=== PATIENT | female | born 1955 | race Caucasian/White ===

== ENCOUNTER 2016-09-13 18:53 | Observation (INO) | payer OTHER ==
[~2016-09-13] VITALS: Ht 161.3 cm; Wt 58.6 kg
[~2016-09-13 18:53] MED LIST: ASPI-973 PO; CALC-78 PO; CHOL100043 PO; GING1POW MC; LEVO112T23 PO; LORA0.5T PO; METO10TA3 PO; METO25TA99 PO; PYR50 PO; VITAMIN C GUMMY PO; ZOF8 PO
[2016-09-13 18:58] VITALS: BP 189/89; PULSE 69; RESP 16; O2SAT 100
--- NOTE | 2016-09-13 19:33 | ED.REPORT ---
HPI-Chest Pain 40 and Over Date of Service Sep 13, 2016 ED Provider: Dr. Toi Stoll D.O. A 61 year old female with a medical history including hypertension, diastolic heart failure, cardiomyopathy, DVT, and recurrent uterine carcinosarcoma presents to the ED from Urgent Care with substernal chest pain onset two days ago, waking her up. The pain is described as "heaviness," without exacerbation. The patient also reports fatigue. She denies fever, cough, shortness of breath, leg swelling, nausea, or other symptoms. The patient is being followed by her oncologist with the last appointment on 08/31/16. She has a CT of her pelvis scheduled in two days. Nursing Notes Stated Complaint: CHEST PAIN/SENT FROM URGENT CARE Chief Complaint: Chest Pain Nursing Notes Reviewed: Yes Allergies: Coded Allergies: magnesium sulfate (Verified Allergy, Severe, VOMITING, 09/13/16) potassium (Verified Allergy, Severe, VOMITING, 09/13/16) Scheduled ([Vitamin C Gummy Chew]) 1,000 MG PO DAILY Aspirin (Aspirin) 81 Mg Tablet 81 MG PO QAM Cholecalciferol (Vitamin D3) (Vitamin D) 1,000 Unit Tablet 2,000 UNIT PO QAM Levothyroxine (Levoxyl) 112 Mcg Tablet 112 MCG PO QAM Metoprolol Succinate ER (Metoprolol Succinate ER) 25 Mg Tab.er.24h 25 MG PO DAILY Pyridoxine (Vitamin B-6) 50 Mg Tablet 100 MG PO DAILY General Time Seen by MD: 19:32 Chief Complaint Chest pain Hx Obtained From: Patient Arrived By: Walk-in Sudden in Onset?: No Onset Occurred: 2 days ago Context of Onset: Sleeping Symptom Duration: Since onset Location: : Substernal Quality: Painful, Pressure Severity: Current: Moderate Severity: Maximum: Moderate Associated with: Reports: Fatigue, Denies: Cough, non-productive, Fever, Nausea, Shortness of Breath Pertinent Negative: Relieved by nothing Context Related History: Reports: Congestive heart failure, Hypertension Recent Healthcare: Recent doctor visit Past Medical History Past Medical History Notes: Past Medical History 1. Recurrent uterine carcinosarcoma. As of 08/31/16: The patient continues to have a biochemical treatment response with normalization of her CA-125 which has been reliable. Her last imaging study in April of 2016, showing stable peritoneal caking as well as splenic lesions. No new disease is seen. 2. Hypothyroidism. 3. Hypertension. 4. Diastolic heart failure with her last echocardiogram dated July 26, 2016 reporting an EF of 65%-70% which is unchanged. 5. Heart murmur 6. Cardiomyopathy 7. DVT legs 1974 8. Hiatal hernia Past Surgical History Appendectomy Hysterectomy Biopsies Smoking History Never Smoker Social History Other Social History: Good social support, Ambulatory Status Independent Review of Systems Constitutional: Reports: Fatigue, Denies: Fever Respiratory: Denies: Non-productive cough, Shortness of breath Cardiovascular: Reports: Chest pain GI: Denies: Diarrhea, Nausea, Vomiting Musculoskeletal: Denies: Extremity swelling Complete sys rev & neg: except as marked. Physical Exam Physical Exam Notes: Initial Vital Signs Vital Signs (First) Date Time Temp Pulse Resp B/P Pulse Ox O2 Delivery O2 Flow Rate FiO2 09/13/16 18:58 36.4 69 16 189/89 100 Room Air Initial VS: Reviewed Head / Eyes: Atraumatic, Normocephalic ENT: Conjunctiva normal, No scleral icterus Extremities: Vascular intact, Neuro intact, No swelling Skin: Warm, Dry, No cyanosis Neurologic: Alert, Oriented, Nonfocal Psychiatric: Mood/affect normal, Behavior normal, Normal thought content General/Constitutional: Awake, Alert, No acute distress Respiratory / Chest: Breath sounds NL, Breath sounds = bilat, No respiratory distress Cardiovascular: Heart rate NL, Regular rhythm Heart Sounds / Murmur: Positive: Murmur present... (Rumbling, low-pitched ejection murmur) Abdomen: Soft, Non-tender Neck: Supple, Full range of motion, No JVD Interpretation & Diagnostics Lab Results Interpretation Result Diagram: 09/13/16191409/13/161914 Test 09/13/16 19:15 09/13/16 21:37 09/13/16 23:55 White Blood Count 2.1th/mm3 (3.8-10.1) Red Blood Count 2.80mil/mm3 (3.90-5.20) Hemoglobin 10.2g/dL (12.0-15.6) Hematocrit 30.1% (35.0-46.0) Mean Corpuscular Volume 107.5fL (81-100) Mean Corpuscular Hemoglobin 36.4pg (27.0-35.0) Mean Corpuscular Hemoglobin Concent 33.9% (32.0-37.0) Red Cell Distribution Width 12.9% (12.3-15.4) Platelet Count 109bil/L (150-400) Neutrophils (%) (Auto) 45.3% (40-74) Lymphocytes (%) (Auto) 40.1% (14-46) Monocytes (%) (Auto) 12.7% (4-12) Eosinophils (%) (Auto) 0.5% (0-5) Basophils (%) (Auto) 1.4% (0-3) D-Dimer 2.29mg/L FEU (<0.50) Sodium Level 138mEq/L (134-144) Potassium Level 4.2mEq/L (3.5-5.2) Chloride Level 100mEq/L (97-108) Carbon Dioxide Level 23mmol/L (18-29) Blood Urea Nitrogen 13mg/dL (8-27) Creatinine 0.55mg/dL (0.57-1.00) Estimat Glomerular Filtration Rate 160mL/min (>59) Glucose Level 84mg/dL (60-99) Calcium Level 9.6mg/dL (8.5-10.1) Magnesium Level 1.7mg/dL (1.6-2.6) Total Bilirubin 0.3mg/dL (0.0-1.2) Aspartate Amino Transf (AST/SGOT) 34U/L (0-50) Alanine Aminotransferase (ALT/SGPT) 33U/L (0-32) Alkaline Phosphatase 79U/L (25-165) Total Protein 6.6g/dL (6.4-8.4) Albumin 4.0g/dL (3.4-5.0) Hold Sweeney Top Tube Received (Received) Hold Urine Received (Received) Troponin T 0.010ug/L (0.0-0.011) ECG Interpretation ECG Interpretation: Sinus rhythm rate 64 Time: 19:25 Interpreted by: ED physician X-Ray Chest Interpretation Chest Xray Interpretation: IMPRESSION: 1. No acute cardiopulmonary disease. Dictated by: Nahun Carty M.D. on 09/13/2016 at 20:13 View: Portable, 1 view Interpretation / Wet Read by: Interpret - ED physician CT Chest Interpretation IMPRESSION: 1. No evidence of pulmonary embolism. 2. Splenic lesions redemonstrated consistent with metastatic disease, decreased from the prior study. Dictated by: Nahun Carty M.D. on 09/13/2016 at 21:20 Study type: CT pulm angiogram Interpretation / Wet Read by: Interpret - Radiologist Re-Eval/Medical Decision Med Decision/Clinical Course The cause of her symptoms are uncertain. Perhaps this is related to a cardiomyopathy/myocarditis. I would expect the troponin to be elevated. This is most likely related to the doxorubicin. Chest wall pain could have been related to some Neupogen however she has not received that since March of last year. I consulted with Dr. Hays. We tried a GI cocktail and Protonix without relief. We decided we will going to admit her for observation and serial troponins and an echocardiogram. We will also repeat her white count to be sure that her pancytopenia does not worsen. Source of Hx: Old records Time of Eval: 20:50 Patient Status: Condition improved Re-Evaluation/Progress Note: Discussed with patient x-ray results and plan for CT. Time of Eval: 21:38 Patient Status: Condition improved Re-Evaluation/Progress Note: Discussed with patient consult with Dr. Jefferson and plan for GI cocktail. Time of Eval: 23:07 Re-Evaluation/Progress Note: Pain persists with no relief after proton-pump inhibitors. Discussed with patient x-ray, CT, and lab results, diagnosis, and plan for admit. Patient agrees with plan for care and all questions were addressed. Consultation #1: Referral / Consult Name: Mingo Light MD Call Returned at: 21:30 Back Office Medical Assistant: Agrees with eval, Agrees with plan Note: Oncology: Recommends trying GI cocktail. Admit to hospital and obtain serial enzymes if pain persists. Consultation #2: Referral / Consult Name: Jean Shanks MD Consulted With: Hospitalist Call Returned at: 23:45 Back Office Medical Assistant: Agrees with eval, Agrees with plan, Accepts admit Counseled Regarding: Diagnosis, Lab results, Need for admission Discharge & Departure Primary Impression: Chest pain Chest pain type: precordial chest pain Qualified Code: R07.2 - Precordial pain Additional Impression: Cardiomyopathy Disposition: ADMITTED TO HOSPITAL Discharge Condition All VS Reviewed: Yes Condition: Improved Referrals: Mellisa Dhillon (PCP) Scribe Attestation Portions of this note were transcribed by Lucia Carter. I, Dr. Stoll, personally performed the history, physical exam, and medical decision-making; I reviewed and confirmed the accuracy of the information in the transcribed note. Signed by: Emily Haywood, 09/14/2016, 00:17 copies to: Mellisa Dhillon Todd P DO Sep 13, 2016 19:33 LUCIA CARTER Sep 13, 2016 20:10
[2016-09-13 19:41] LABS: BASOPHILS % (AUTO) 1.4 % (0-3); EOSINOPHILS % (AUTO) 0.5 % (0-5); MONOCYTES % (AUTO) 12.7 % (4-12); Mean Corpuscular Hemoglobin 36.4 pg (27.0-35.0); Mean Corpuscular Volume 107.5 fL (81-100); NEUTROPHILS % (AUTO) 45.3 % (40-74); Platelet Count 109 bil/L (150-400)
[2016-09-13 20:09] LABS: TROPONIN T < 0.010 ug/L (0.0-0.011)
[2016-09-13 20:13] LABS: Magnesium 1.7 mg/dL (1.6-2.6)
--- NOTE | 2016-09-13 20:15 | DRSVH ---
PROCEDURE: X-RAY CHEST ONE VIEW, PORTABLE ([id number]) INDICATIONS: chest pain TECHNIQUE: One view of the chest was acquired. COMPARISON: [facility], CR, XR CHEST 1VW (PORTABLE), 10/05/2015, 15:09. FINDINGS: Surgical changes and devices: Left chest wall subclavian Port-A-Cath is stable in position with the t ip in the superior vena cava. Lungs and pleura: No pleural effusions or pneumothorax. Lungs are clear. Mediastinum: Mediastinal contours appear normal. Heart size is normal. Bones and chest wall: No suspicious bony lesions. Overlying soft tissues appear unremarkable. IMPRESSION: 1. No acute cardiopulmonary disease. Dictated by: Nahun Carty M.D. on 09/13/2016 at 20:13 Approved by: Nahun Carty M.D. on 09/13/2016 at 20:13
[2016-09-13 20:34] VITALS: BP 152/79; PULSE 80; RESP 24; O2SAT 100
--- NOTE | 2016-09-13 21:26 | DRSVH ---
PROCEDURE: CT ANGIO CHEST PULMONARY EMBOLISM ([id number]) INDICATIONS: metastatic cancer, chest pain,elevated ddimer TECHNIQUE: After the administration of intravenous contrast, 2 mm thick sections acquired from the pulmonary api emiliano to the posterior costophrenic angles. 3-dimensional maximum intensity projection (MIP) coronal a nd sagittal reformats were then acquired through the thorax. For radiation dose reduction, the follo wing was used: automated exposure control, adjustment of mA and/or kV according to patient size. COMPARISON: [facility], CT, CT CHEST ABD PELVIS W CON, 05/11/2016, 15:28. [facility], CT, CHEST ANGIO-PE, 03/01/2014, 16:28. FINDINGS: Image quality: Excellent. Pulmonary arteries: Pulmonary arteries are normal in size, and demonstrate no intraluminal filling d efects to suggest central pulmonary embolism. Lungs and pleura: There are a few residual small groundglass nodules within the right middle lobe wh ich are progressively decreased from the prior study. There is mild dependent atelectasis. No acute consolidation. Mild linear scarring is noted in the left lingula. No pleural effusions or pneumoth orax. Central and peripheral airways are patent. Mediastinum: Heart size is normal, without pericardial effusion. No mediastinal or hilar adenopathy . Thoracic aorta is normal in caliber and enhancement. Esophagus is normal in caliber, without hiat al hernia. Bones and chest wall: No suspicious bony lesions. Ribs and thoracic spine appear intact throughout. No axillary or supraclavicular adenopathy. Abdomen: Visualized upper abdomen redemonstrates multiple splenic lesions which appear decreased in size compared to the prior study. IMPRESSION: 1. No evidence of pulmonary embolism. 2. Splenic lesions redemonstrated consistent with metastatic disease, decreased from the prior study . Dictated by: Nahun Carty M.D. on 09/13/2016 at 21:20 Approved by: Nahun Carty M.D. on 09/13/2016 at 21:25
[2016-09-13] MEDS ORDERED: Pantoprazole 4 mg/mL 10 mL Inj IVPUSH ONE (21:35)
[2016-09-13] MEDS ORDERED: Alum-Mag Hydrox-Simeth 30 mL Suspension PO ONE (21:45)
[2016-09-13 22:47] VITALS: BP 141/84; PULSE 65; RESP 18; O2SAT 99
[2016-09-13] MEDS ORDERED: HYDROmorphone 0.5 mg/0.5 mL iSecure Syringe IVPUSH PRN (23:10)
[2016-09-14] VITALS (8 sets, daily range): BP systolic 105–139; BP diastolic 61–76; PULSE 62–73; RESP 16–18; O2SAT 96–98
[2016-09-14] MEDS ORDERED: HYDROcodone-APAP 5-325 mg Tablet PO PRN (00:50)
[2016-09-14] MEDS ORDERED: Alum-Mag Hydrox-Simeth 30 mL Suspension PO PRN (00:50)
[2016-09-14] MEDS ORDERED: Ondansetron 2 mg/mL 2 mL Inj IVPUSH PRN (00:50)
[2016-09-14] MEDS ORDERED: Polyethylene Glycol (PEG) 17 Gm Powder PO PRN (00:50)
[2016-09-14] MEDS ORDERED: Lidocaine 5% 35.5 Gm Ointment TOPICAL PRN (01:35)
--- NOTE | 2016-09-14 01:48 | PCM.HPMED ---
Subjective Date of Service Sep 13, 2016 Primary Provider: Admitting Physician: Primary Care Physician: Mellisa Dhillon Attending Physician: Chief Complaint: Chest pain History of Present Illness: Patient is a 61 y.o. F with past medical history of recurrent uterine carcinosarcoma on doxydubicin, Hypothyroidism, Hypothyroidism, Diastolic heart failure with her last echocardiogram dated July 26, 2016 reporting an EF of 65%-70% which is unchanged, Cardiomyopathy. She presented to Ed from urgent care with for sternal chest pain that began two days ago, sensation woke her up from sleep, described as constant heaviness, made worse by nothing, made better by nothing, without radiation associated with dizziness. Patient denies chest pain, syncope, PND, orthopnea, SOB, fever, chills, cough, nausea, vomiting, dysuria, diarrhea, constipation, swelling of hands and feet. Patient went to urgent care prior to ED and was evaluated and instructed to seek emergency medical care. Followed by oncology with repeat CT pelvis in two days recommend bashir pappas in AM. Review of Systems: A comprehensive review of systems was conducted with the patient and found to be negative except as above in the History of Present Illness. Allergies Coded Allergies: magnesium sulfate (Verified Allergy, Severe, VOMITING, 09/13/16) potassium (Verified Allergy, Severe, VOMITING, 09/13/16) Home Medications Aspirin (Aspirin) 81 Mg Tablet 81 MG PO DAILY Cholecalciferol (Vitamin D3) (Vitamin D) 1,000 Unit Tablet 2,000 UNIT PO DAILY Levothyroxine (Levoxyl) 112 Mcg Tablet 112 MCG PO DAILY Metoprolol Succinate ER (Metoprolol Succinate ER) 25 Mg Tab.er.24h 25 MG PO DAILY Pyridoxine (Vitamin B-6) 50 Mg Tablet 100 MG PO UD PMH 1. Recurrent uterine carcinosarcoma. As of 08/31/16: The patient continues to have a biochemical treatment response with normalization of her CA-125 which has been reliable. Her last imaging study in April of 2016, showing stable peritoneal caking as well as splenic lesions. No new disease is seen. 2. Hypothyroidism. 3. Hypertension. 4. Diastolic heart failure with her last echocardiogram dated July 26, 2016 reporting an EF of 65%-70% which is unchanged. 5. Heart murmur 6. Cardiomyopathy 7. DVT legs 1974 8. Hiatal hernia Surgical History Appendectomy Hysterectomy Biopsies Family History Father with [place] Mother with CAD Social History Hx Alcohol Use: No Hx Substance Use: No Hx Tobacco Use: No Smoking Status: Never Smoker Exam Vital Signs Vital Sign - Last Date Time Temp Pulse Resp B/P Pulse Ox O2 Delivery O2 Flow Rate FiO2 09/13/16 22:47 65 18 141/84 99 Room Air 09/13/16 18:58 36.4 Exam General: No acute distress, well-developed, well-nourished, appropriately interactive HEENT: Normocephalic, atraumatic. External ears without defect. Pupils equal, round, and reactive to light and accommodation. Anicteric sclerae, moist conjunctivae, and no lid lag. oral mucose moist/pink Neck: Supple with full range of motion. No jugular venous distension. No bruits. No lymphadenopathy or thyromegaly. Cardiovascular: Regular rate and rhythm, Grade I/IV systolic ejection murmur at RSB, no rubs, or gallops appreciated Pulmonary: Clear to auscultation bilaterally with no crackles, wheezes, or rhonchi. Normal respiratory effort with no use of accessory muscles. Abdomen: Bowel tones present. Soft, nontender, nondistended. No hepatosplenomegaly or masses appreciated. Extremities: No clubbing, cyanosis, edema, or lymphadenopathy appreciated. Skin: Normal temperature, turgor, and texture; no rash, ulcers, or subcutaneous nodules appreciated. Neurological: Cranial nerves grossly intact. Normal muscle strength, tone, and bulk. Reflexes, coordination, and sensory function within normal limits. No known gait impairment. Psychiatric: Normal mood and affect. Alert and oriented to person, place, and time. Lab and Diagnostics Result Diagram: 09/13/16191409/13/161914 X-Rays, CTs and MRIs CT angio chest IMPRESSION: 1. No evidence of pulmonary embolism. 2. Splenic lesions redemonstrated consistent with metastatic disease, decreased from the prior study. Dictated by: Nahun Carty M.D. on 09/13/2016 at 21:20 Approved by: Nahun Carty M.D. on 09/13/2016 at 21:25 Chest X-ray IMPRESSION: 1. No acute cardiopulmonary disease. Dictated by: Nahun Carty M.D. on 09/13/2016 at 20:13 Approved by: Nahun Carty M.D. on 09/13/2016 at 20:13 12-lead ECG ECG Interpretation: Sinus rhythm rate 64 Time: 19:25 Interpreted by: ED physician Assessment & Plan Patient is a 61 y.o. F with past medical history of recurrent uterine carcinosarcoma on doxorubicin, Hypothyroidism, Hypothyroidism, Diastolic heart failure with her last echocardiogram dated July 26, 2016 reporting an EF of 65%-70% which is unchanged, Cardiomyopathy. Patient is admitted for chest pain rule out, trending of WBC, Echo in AM. 1. Chest pain, acute, resolved on admission - CP resolved on admission, CTA negative for PE - Continue tele - Continue conservative IVF 80 mls/hr - Continue ASA 81 mg PO QD - Nitroglycerin SL 0.4 MG for chest pain - Morphine 1-2 mg Q 15 min PRN chest pain - EKG PRN for chest pain - ECHO in AM - Repeat CBC, CMP in AM 2. Leukopenia, acute on chronic - Patient on Doxorubicin chemo therapy, patient is afebrile on exam with no complaint of cough, sob, - Repeat CBC in AM - Oncology aware, following patient we appreciate their recommendations - Continue to monitor 3. Anemia, chronicity unknown - Repeat CBC - Iron studies ordered Chronic Conditions Recurrent uterine carcinosarcoma - Oncology following continue home medication Hypothyroidism, - continue home medication Hypertension, continue home medication Diastolic heart failure with her last echocardiogram dated July 26, 2016 reporting an EF of 65%-70% which is unchanged. - Repeat ECHO in AM 6. Cardiomyopathy - Repeat ECHO Pain Evaluation: Adequate Pain Control GI Prophylaxis: H2 aleah VTE Prophylaxis: Sub-Q Heparin (Unfractionated) Resuscitation Status: CPR: Attempt Resuscitation Attending Statement The patient was seen and examined together with Dr. Saucedo on 09/13 and I agree with the history, exam and plan as outlined in the note above. JUNIE SAUCEDO DO Sep 13, 2016 23:49 Jean Shanks MD Sep 14, 2016 02:25
[2016-09-14] MEDS: 0.9% Sodium Chloride 1,000 ML IV SCH ×2 (02:25→12:17)
--- NOTE | 2016-09-14 02:25 | NUR ---
admit: pt A&OX3, sleepy. Cooperative with care. IVF infusing per orders via Port a cath. pt c/o "chest pressure" but denies "pain". VSS. will continue to monitor.
[2016-09-14 06:15] LABS: BASOPHILS % (AUTO) 2.7 % (0-3); EOSINOPHILS % (AUTO) 0.7 % (0-5); MONOCYTES % (AUTO) 12.3 % (4-12); Mean Corpuscular Hemoglobin 36.5 pg (27.0-35.0); NEUTROPHILS % (AUTO) 32.2 % (40-74); Platelet Count 87 bil/L (150-400)
[2016-09-14 06:46] LABS: Unsaturated Iron Binding 205.1 ug/dL
[2016-09-14] MEDS: Heparin 5,000 Unit/mL Inj SUBQ SCH ×2 (08:30→16:30)
[2016-09-14] MEDS ORDERED: Famotidine Inj 20 MG in IV Premix 1 EACH IV SCH (08:30)
[2016-09-14] MEDS ORDERED: 0.9% Sodium Chloride 250 ML IV SCH (11:09)
[2016-09-14] MEDS ORDERED: Sodium Chloride LOK Flush 10 mL Syringe IVFLUSH PRN ×2 (11:10)
[2016-09-14] MEDS ORDERED: HepLOK Flush 100 unit/mL 5 mL Inj IVFLUSH PRN (11:10)
--- NOTE | 2016-09-14 13:13 | NUR ---
Social Work: Screening Data: Pt is a 61 y/o female admitted for chest pain cardiomyopathy. Pt's PCP is Dr Dhillon, pt's insurance is [employer]. EMR reviewed. No d/c planning needs anticipated at this time. [employer] will continue to follow if needs arise. Assessment: Pt who is independent at baseline. Plan: Pt will d/c home via POV when medically stable. No d/c planning needs anticipated at this time. [employer] will continue to follow if needs arise. CASSANDRA Cifuentes
[2016-09-14] MEDS ORDERED: Pantoprazole 20 mg ER24 Tablet PO SCH (14:30)
--- NOTE | 2016-09-14 14:50 | DRSVH ---
[facility] [address] [place] [address] Echocardiogram Report Name: ENRIQUETA MORROW SStudy Date: 09/14/2016 Height: 64 in Hospital Exam Location: [facility] Weight: 129 lb Gender: Female BSA: 1.6 m2 : 1955 Age: 61 yrs BP: 105/61 mmHg Reason For Study: Chest pain Ordering Physician: HOSPITALIST [facility] Performed By: Kehinde Mallory Referring Physician: JUNIE SAUCEDO Interpretation Summary LV size is borderline reduced. Left ventricular systolic function is normal without focal wall motion abnormalities. The ejection fraction is estimated to be 60-65%. LVEF has remained stable. The right ventricle is normal in size and function. Pulmonary artery pressures cannot be estimated because of the lack of a measurable TR jet velocity. There is mild to moderate aortic regurgitation. Compared to the prior echo study, there has been an increase in the severity of aortic regurgitation. The ascending aorta is mildly enlarged. Procedure: A two-dimensional transthoracic echocardiogram with color flow and Doppler was performed. The study quality was technically adequate. Comparison is made with the echocardiogram of 07/26/16. The patient was in normal sinus rhythm during the exam. Left Ventricle: LV size is borderline reduced. Left ventricular wall thickness is at the upper limits of normal. Left ventricular systolic function is normal without focal wall motion abnormalities. The ejection fraction is estimated to be 60-65%. Assessment of diastolic parameters indicates normal left ventricular diastolic function and normal filling pressures. Right Ventricle: The right ventricle is normal in size and function. Atria: The left atrial size is normal. Right atrial size is normal. The interatrial septum is intact with no evidence for an atrial septal defect. Mitral Valve: The mitral valve leaflets appear borderline thickened, but open well. There is trace mitral regurgitation. Aortic Valve: The aortic valve is grossly normal. The aortic valve is not well visualized. There is mild to moderate aortic regurgitation. Compared to the prior echo study, there has been an increase in the severity of aortic regurgitation. Tricuspid Valve: The tricuspid valve is normal. Pulmonary artery pressures cannot be estimated because of the lack of a measurable TR jet velocity. Pulmonic Valve: The pulmonic valve is not well visualized. Great Vessels: The aortic root is normal size. The ascending aorta is mildly enlarged. The pulmonary artery is not well visualized, but is probably normal size. The IVC is dilated (diameter is greater than 2.1 cm) yet it collapses greater than 50% with a sniff. This suggests a right atrial pressure of 8 mm Hg. Pericardium/ Pleura There is no pericardial effusion. There is no pleural effusion. MMode/2D Measurements & Calculations LVIDd: 3.9 cm RA long axis LVOT diam: 1.9 cm LVIDs: 2.8 cm LA A2 area: 15.8 cm AoV Opening FS: 29.3 % LA A4 area: 16.2 cm RA area EPSS: 0.39 cm LA length (vol) Ao root diam IVSd: 0.96 cm : 16.7 cm LVPWd: 0.95 cm LA vol: 46.2 ml RA vol asc Aorta Diam LA vol index : 48.4 ml RA Ao Arch Diam (Prox : 29.8 mm2 Trans): 3.0 cm IVC diam: 2.7 cm LV betts. diameter/BSA LV sys. diameter/BSA RVD1 (basal) RVD2 (mid): 1.9 cm (cm/m^2): 2.4 (cm/m^2): 1.7 TAPSE: 2.4 cm Doppler Measurements & Calculations Ao V2 max: 162.9 cm/secMV E max roddy MV E/A: 1.2 PA V2 max Ao max P.6 mmHg : 101.7 cm/sec Med Peak E' Roddy : 82.4 cm/sec Ao mean P.5 mmHg MV A max roddy PA mean PG LVOT Max Roddy : 86.9 cm/sec E/E' med: 17.6 : 1.4 mmHg : 133.7 cm/sec Lat Peak E' Roddy HEMANT(I,D): 2.3 cm E/E' lat: 12.2 sev ratio: 0.80 E/e' average AI P1/2t: 433.5 msec AI dec slope : 269.5 cm/s2c MV dec time: 0.18 sec Ao V2 mean LV V1 max PG PA V2 mean : 99.8 cm/sec : 56.3 cm/sec Ao V2 VTI: 31.4 cm LV V1 VTI: 25.2 cmPA pr(Accel) HEMANT(V,D): 2.3 cm2 : 38.5 mmHg HEMANT indexed to BSA (cm^2/m^2): 1.4 Reading Physician:PM
[2016-09-14] MEDS ORDERED: PANT20TA2 PO (16:51)
--- NOTE | 2016-09-14 16:56 | PCM.DIMED ---
Mel Prater DO 09/14/16 1656: Discharge Instructions Date of Service Sep 14, 2016 Dates of Hospitalization Sep 14, 2016 at 00:24 Discharge Diagnosis Discharge Diagnosis 1.Chest pain, acute, resolved on admission 2. Leukopenia, acute on chronic 3. Anemia, chronicity unknown Chronic Conditions Recurrent uterine carcinosarcoma Hypothyroidism, Hypertension, Diastolic heart failure with her last echocardiogram dated July 26, 2016 reporting an EF of 65%-70% which is unchanged. Cardiomyopathy Medication Instructions You were started on a PPI for your GERD. This has been sent to your pharmacy. Test Results ECHO Interpretation Summary LV size is borderline reduced. Left ventricular systolic function is normal without focal wall motion abnormalities. The ejection fraction is estimated to be 60-65%. LVEF has remained stable. The right ventricle is normal in size and function. Pulmonary artery pressures cannot be estimated because of the lack of a measurable TR jet velocity. There is mild to moderate aortic regurgitation. Compared to the prior echo study, there has been an increase in the severity of aortic regurgitation. The ascending aorta is mildly enlarged. Diet Heart Healthy Activity Other (Limited untll seen by Dr. Buchanan) Call your provider Shortness of breath, Chest pain Patient Instructions Please follow up with Dr. Buchanan as soon as possible. You also need to follow up with him regarding your low white count. He has likely told you about neutropenic precautions. Please avoid fresh coreas. Please avoid any sick contacts. Please be cognizant of children. Please use good handwashing technique. Have anyone that visits you wash their hands before coming in contact with you. Follow-up Provider: Reji Buchanan DO Follow-up with PCP in: 1 week Montrell Goodrich MD 09/15/16 0707: Discharge Instructions Attending's Statement The patient was seen and examined independently on 09/14/2016 and case discussed with Dr. Prater , I agree with the discharge instructions as outlined in the note above. Mel Prater DO Sep 14, 2016 16:56 Montrell Goodrich MD Sep 15, 2016 07:07
--- NOTE | 2016-09-14 17:30 | NUR ---
Discharge Reviewed discharge paperwork and medications with pt, disclaimer signed. Katlin-cath deaccessed by IV therapy. Tele removed, all belongings with pt. Pt denies pain, no s/sx of distress. Pt declines WC and escorted on foot curbside, driving home.
[2016-09-15 07:15] LABS: Vitamin B12 446 pg/mL (211-946)
--- NOTE | 2016-09-15 11:18 | PCM.DC.MED ---
Discharge Summary Date of Service Sep 15, 2016 Dates of Hospitalization Date of Hospital Admission Sep 14, 2016 at 00:24 Date of Discharge: Sep 14, 2016 Providers: Admitting Physician: Jean Shanks MD Primary Care Physician: Mellisa Dhillon Attending Physician: Jean Shanks MD Diagnosis at Time of Discharge Diagnosis at Time of Discharge 1.Chest pain, acute, resolved on admission 2. Leukopenia, acute on chronic 3. Anemia, chronicity unknown Chronic Conditions Recurrent uterine carcinosarcoma Hypothyroidism, Hypertension, Diastolic heart failure with her last echocardiogram dated July 26, 2016 reporting an EF of 65%-70% which is unchanged. Cardiomyopathy Procedures XRay, CTs & MRIs CT angio chest IMPRESSION: 1. No evidence of pulmonary embolism. 2. Splenic lesions redemonstrated consistent with metastatic disease, decreased from the prior study. Dictated by: Nahun Carty M.D. on 09/13/2016 at 21:20 Approved by: Nahun Carty M.D. on 09/13/2016 at 21:25 Chest X-ray IMPRESSION: 1. No acute cardiopulmonary disease. Dictated by: Nahun Carty M.D. on 09/13/2016 at 20:13 Approved by: Nahun Carty M.D. on 09/13/2016 at 20:13 ECG 12 Lead ECG Interpretation: Sinus rhythm rate 64 Time: 19:25 Interpreted by: ED physician Brief History From Dr. King's H and P: "Patient is a 61 y.o. F with past medical history of recurrent uterine carcinosarcoma on doxydubicin, Hypothyroidism, Hypothyroidism , Diastolic heart failure with her last echocardiogram dated July 26, 2016 reporting an EF of 65%-70% which is unchanged, Cardiomyopathy. She presented to Ed from urgent care with for sternal chest pain that began two days ago , sensation woke her up from sleep, described as constant heaviness, made worse by nothing, made better by nothing, without radiation associated with dizziness. Patient denies chest pain, syncope, PND, orthopnea, SOB, fever, chills, cough, nausea, vomiting, dysuria, diarrhea, constipation, swelling of hands and feet. Patient went to urgent care prior to ED and was evaluated and instructed to seek emergency medical care. Followed by oncology with repeat CT pelvis in two days recommend tredn trop, echo in AM." Hospital Course Patient is a 61 y.o. F with past medical history of recurrent uterine carcinosarcoma on doxorubicin, Hypothyroidism, Hypothyroidism, Diastolic heart failure with her last echocardiogram dated July 26, 2016 reporting an EF of 65%-70% which is unchanged, Cardiomyopathy. Patient is admitted for chest pain rule out, trending of WBC, Echo in AM. 1. Chest pain, acute, resolved on admission - CP resolved on admission, CTA negative for PE - Continued tele - Continued conservative IVF 80 mls/hr - Continued ASA 81 mg PO QD - EKG PRN for chest pain - ECHO not changed from prior. 2. Leukopenia, acute on chronic - Patient on Doxorubicin chemo therapy, patient is afebrile on exam with no complaint of cough, sob, - Repeated CBC in AM - Oncology aware, following patient we appreciate their recommendations - Continued to monitor 3. Anemia, chronicity unknown - Repeat CBC - Iron studies ordered Chronic Conditions Recurrent uterine carcinosarcoma - Oncology following continue home medication Hypothyroidism, - continued home medication Hypertension, continued home medication Diastolic heart failure with her last echocardiogram dated July 26, 2016 reporting an EF of 65%-70% which is unchanged. Exam Vital Signs (Last) Date Time Temp Pulse Resp B/P Pulse Ox O2 Delivery O2 Flow Rate FiO2 09/14/16 15:03 36.9 69 16 117/72 97 Room Air Exam General: No acute distress, well-developed, well-nourished, appropriately interactive HEENT: Normocephalic, atraumatic. External ears without defect. Pupils equal, round, and reactive to light and accommodation. Anicteric sclerae, moist conjunctivae, and no lid lag. oral mucose moist/pink Neck: Supple with full range of motion. No jugular venous distension. No bruits. No lymphadenopathy or thyromegaly. Cardiovascular: Regular rate and rhythm, Grade I/IV systolic ejection murmur at RSB, no rubs, or gallops appreciated Pulmonary: Clear to auscultation bilaterally with no crackles, wheezes, or rhonchi. Normal respiratory effort with no use of accessory muscles. Abdomen: Bowel tones present. Soft, nontender, nondistended. No hepatosplenomegaly or masses appreciated. Extremities: No clubbing, cyanosis, edema, or lymphadenopathy appreciated. Skin: Normal temperature, turgor, and texture; no rash, ulcers, or subcutaneous nodules appreciated. Neurological: Cranial nerves grossly intact. Normal muscle strength, tone, and bulk. Reflexes, coordination, and sensory function within normal limits. No known gait impairment. Psychiatric: Normal mood and affect. Alert and oriented to person, place, and time. Test 09/13/16 19:15 09/13/16 21:37 09/14/16 06:00 09/14/16 09:20 D-Dimer 2.29mg/L FEU (<0.50) Magnesium Level 1.7mg/dL (1.6-2.6) Hold Sweeney Top Tube Received (Received) Hold Urine Received (Received) White Blood Count 1.5th/mm3 (3.8-10.1) Red Blood Count 2.44mil/mm3 (3.90-5.20) Hemoglobin 8.9g/dL (12.0-15.6) Hematocrit 26.6% (35.0-46.0) Mean Corpuscular Volume 109.0fL (81-100) Mean Corpuscular Hemoglobin 36.5pg (27.0-35.0) Mean Corpuscular Hemoglobin Concent 33.5% (32.0-37.0) Red Cell Distribution Width 13.0% (12.3-15.4) Platelet Count 87bil/L (150-400) Neutrophils (%) (Auto) 32.2% (40-74) Lymphocytes (%) (Auto) 52.1% (14-46) Monocytes (%) (Auto) 12.3% (4-12) Eosinophils (%) (Auto) 0.7% (0-5) Basophils (%) (Auto) 2.7% (0-3) Reticulocyte Count,Calculated 1.9% (0.6-2.6) Sodium Level 140mEq/L (134-144) Potassium Level 4.1mEq/L (3.5-5.2) Chloride Level 103mEq/L (97-108) Carbon Dioxide Level 23mmol/L (18-29) Blood Urea Nitrogen 9mg/dL (8-27) Creatinine 0.57mg/dL (0.57-1.00) Estimat Glomerular Filtration Rate 154mL/min (>59) Glucose Level 86mg/dL (60-99) Calcium Level 9.0mg/dL (8.5-10.1) Iron Level 56ug/dL (35-150) Total Iron Binding Capacity 261ug/dL (250-450) Percent Iron Saturation 21%sat (15-50) Unsaturated Iron Binding 205.1ug/dL Ferritin 132ng/mL (13-150) Total Bilirubin 0.2mg/dL (0.0-1.2) Aspartate Amino Transf (AST/SGOT) 29U/L (0-50) Alanine Aminotransferase (ALT/SGPT) 26U/L (0-32) Alkaline Phosphatase 64U/L (25-165) Total Protein 5.5g/dL (6.4-8.4) Albumin 3.4g/dL (3.4-5.0) Vitamin B12 Level 446pg/mL (211-946) Folate ng/mL (.) Hold Purple Top Tube Received (Received) Hold [place] Top Tube Received (Received) Test 09/14/16 13:10 Troponin T < 0.010ug/L (0.0-0.011) Discharge Medications Discharge Medications ([Vitamin C Gummy Chew]) 1,000 MG PO DAILY (Reported) Aspirin (Aspirin) 81 Mg Tablet 81 MG PO QAM (Reported) Cholecalciferol (Vitamin D3) (Vitamin D) 1,000 Unit Tablet 2,000 UNIT PO QAM ( Reported) Levothyroxine (Levoxyl) 112 Mcg Tablet 112 MCG PO QAM (Reported) Metoprolol Succinate ER (Metoprolol Succinate ER) 25 Mg Tab.er.24h 25 MG PO DAILY (Reported) Pantoprazole (Pantoprazole DR) 20 Mg Tablet. 20 MG PO BID Prescribed by: THAO ELAINE DO Pyridoxine (Vitamin B-6) 50 Mg Tablet 100 MG PO DAILY (Reported) Additional med instructions You were started on a PPI for your GERD. This has been sent to your pharmacy. Followup Plan Discharge Diet: Heart Healthy Discharge Activity: Other (Limited untll seen by Dr. Buchanan) Patient Instructions Please follow up with Dr. Buchanan as soon as possible. You also need to follow up with him regarding your low white count. He has likely told you about neutropenic precautions. Please avoid fresh coreas. Please avoid any sick contacts. Please be cognizant of children. Please use good handwashing technique. Have anyone that visits you wash their hands before coming in contact with you. Follow-up Provider: Reji Buchanan DO Follow-up with PCP in: 1 week Attending Statement The patient was seen and examined independently on 09/14/2016 and case discussed with Dr. Elaine , I agree with the discharge summary as outlined in the note above. copies to: Reji Buchanan Viktoriya DO Sep 15, 2016 11:18 Montrell Goodrich MD Sep 16, 2016 06:59
[2016-10-17] MEDS ORDERED: OMEP20TA86 PO (16:42)
[2016-10-26] MEDS ORDERED: OLAN5TAB PO (15:44)
== END 2016-09-14 17:30 | disposition home or self-care (01) ==
LOC: SED 18:53 → MPC 09-14 00:24
PROVIDERS: ADMIT Hospitalist; ATTEND Hospitalist
DX: R07.9 Chest pain, unspecified (principal); D72.819 Decreased white blood cell count, unspecified; D64.81 Anemia due to antineoplastic chemotherapy; I42.9 Cardiomyopathy, unspecified; I50.30 Unspecified diastolic (congestive) heart failure; I10 Essential (primary) hypertension; C55 Malignant neoplasm of uterus, part unspecified; K44.9 Diaphragmatic hernia without obstruction or gangrene; E03.9 Hypothyroidism, unspecified; Z86.718 Personal history of other venous thrombosis and embolism; Z88.8 Allergy status to other drugs, medicaments and biological substances; Z79.82 Long term (current) use of aspirin; Z90.710 Acquired absence of both cervix and uterus
CPT/HCPCS: 36415; 71010; 71275; 80053; 82607; 82728; 83735; 84484; 85025; 85045; 85378; 93005; 96374; 96375; 99285; C8929; G0378; J1170; J3490; J7030; Q9967

== ENCOUNTER 2016-10-26 21:44 | Emergency (ER) | payer OTHER ==
[~2016-10-26] VITALS: Ht 162.6 cm; Wt 56.8 kg
[~2016-10-26 21:44] MED LIST changes: -CALC-78 PO; -GING1POW MC; -LORA0.5T PO; -METO10TA3 PO; +OLAN5TAB PO; +OMEP20TA86 PO; +PANT20TA2 PO; -ZOF8 PO
[2016-10-26 21:50] VITALS: PULSE 82; RESP 16; O2SAT 98
[2016-10-26 22:29] LABS: BASOPHILS % (AUTO) 0 % (0-3); EOSINOPHILS % (AUTO) 0.4 % (0-5); Mean Corpuscular Hemoglobin 36.8 pg (27.0-35.0); Mean Corpuscular Volume 111.3 fL (81-100); NEUTROPHILS % (AUTO) 88.1 % (40-74); Platelet Count 150 bil/L (150-400)
--- NOTE | 2016-10-26 22:38 | ED.REPORT ---
HPI-Abd Pain F 40 and Over Date of Service October 26, 2016 ED Provider: Elfego Martin MD 61 year old female who is status post hysterectomy with a history of recurrent uterine carcinosarcoma and hiatal hernia presents to the ER accompanied by her complaining of four days of lower abdominal pain, worsening markedly today. She also reports several days of constipation. Today she ate warm prunes for dinner at the instruction of her oncologist, Dr. Buchanan, without relief. Patient denies cough, nausea, vomiting, fever, and any other current illness. Nursing Notes Stated Complaint: ABDOMINAL PAIN/OVARIAN CANCER Chief Complaint: Female Abdominal Pain Nursing Notes Reviewed: Yes Allergies: Coded Allergies: magnesium sulfate (Verified Allergy, Severe, VOMITING, 09/13/16) potassium (Verified Allergy, Severe, VOMITING, 09/13/16) Scheduled ([Vitamin C Gummy Chew]) 1,000 MG PO DAILY Aspirin (Aspirin) 81 Mg Tablet 81 MG PO QAM Cholecalciferol (Vitamin D3) (Vitamin D) 1,000 Unit Tablet 2,000 UNIT PO QAM Lactulose (Lactulose) 20 Gm/30 Ml Solution 20 GM PO TID Levothyroxine (Levoxyl) 112 Mcg Tablet 112 MCG PO QAM Metoprolol Succinate ER (Metoprolol Succinate ER) 25 Mg Tab.er.24h 25 MG PO DAILY Olanzapine (Olanzapine) 5 Mg Tablet 10 MG PO D1-4 Omeprazole (Omeprazole) 20 Mg Tablet.dr 20 MG PO DAILY Pantoprazole DR (Pantoprazole DR) 20 Mg Tablet.dr 20 MG PO BID Pyridoxine (Vitamin B-6) 50 Mg Tablet 100 MG PO DAILY General Time Seen by MD: 22:38 Chief Complaint Abdominal pain Hx Obtained From: Patient Arrived By: Walk-in Sudden in Onset?: No Onset Occurred: 4 days ago Symptom Duration: Since onset Location: : Abdomen lower Quality: Painful Severity: Current: Moderate Severity: Maximum: Moderate Pertinent Negative: Pt denies other symptoms Similar Sx Previous: Yes Past Medical History Past Medical History 1. Recurrent uterine carcinosarcoma. As of 08/31/16: The patient continues to have a biochemical treatment response with normalization of her CA-125 which has been reliable. Her last imaging study in April of 2016, showing stable peritoneal caking as well as splenic lesions. No new disease is seen. 2. Hypothyroidism. 3. Hypertension. 4. Diastolic heart failure with her last echocardiogram dated July 26, 2016 reporting an EF of 65%-70% which is unchanged. 5. Heart murmur 6. Cardiomyopathy 7. DVT legs 1974 8. Hiatal hernia Past Surgical History Appendectomy Hysterectomy Biopsies Smoking History Never Smoker Social History Other Social History: Good social support, Ambulatory Status Independent Review of Systems Constitutional: Denies: Fever Respiratory: Denies: Non-productive cough GI: Reports: Abdominal pain, Constipation, Denies: Diarrhea, Hematemesis, Hematochezia, Nausea, Vomiting Complete sys rev & neg: except as marked. Physical Exam Vital Signs Vital Signs (First) Date Time Temp Pulse Resp B/P Pulse Ox O2 Delivery O2 Flow Rate FiO2 10/26/16 21:50 37.3 82 16 98 Room Air 10/27/16 00:50 128/77 Initial VS: Reviewed Head / Eyes: Atraumatic, Normocephalic Neck: Supple, Non-tender, Full range of motion Extremities: Vascular intact, Neuro intact, No swelling, No tenderness Skin: Warm, Dry, No cyanosis Neurologic: Alert, Oriented, Nonfocal Psychiatric: Mood/affect normal, Behavior normal, Normal thought content General/Constitutional: Awake, Alert, Well developed, Well nourished Tremulous. Respiratory / Chest: Breath sounds NL, Breath sounds = bilat, No respiratory distress, No rales, No rhonchi, No wheezing, No stridor Cardiovascular: Heart rate NL, Regular rhythm, Heart sounds NL, Peripheral circulation NL Abdomen: Soft, No guarding, No rebound, No distention Tenderness/Guarding/Rebound: Positive: Tender diffuse Bowel Sounds / Distention: Positive: Bowel sounds hypoactive Back: Inspection NL, Non-tender, No CVA tenderness Interpretation & Diagnostics Lab Results Interpretation Result Diagram: 10/26/16 2215 10/26/16 2215 Test 10/26/16 22:15 10/26/16 23:35 White Blood Count 5.6th/mm3 (3.8-10.1) Red Blood Count 3.10mil/mm3 (3.90-5.20) Hemoglobin 11.4g/dL (12.0-15.6) Hematocrit 34.5% (35.0-46.0) Mean Corpuscular Volume 111.3fL (81-100) Mean Corpuscular Hemoglobin 36.8pg (27.0-35.0) Mean Corpuscular Hemoglobin Concent 33.0% (32.0-37.0) Red Cell Distribution Width 13.2% (12.3-15.4) Platelet Count 150bil/L (150-400) Neutrophils (%) (Auto) 88.1% (40-74) Lymphocytes (%) (Auto) 9.3% (14-46) Monocytes (%) (Auto) 2.0% (4-12) Eosinophils (%) (Auto) 0.4% (0-5) Basophils (%) (Auto) 0% (0-3) Band Neutrophils % 0% (1-5) Sodium Level 138mEq/L (134-144) Potassium Level 4.0mEq/L (3.5-5.2) Chloride Level 101mEq/L (97-108) Carbon Dioxide Level 23mmol/L (18-29) Blood Urea Nitrogen 18mg/dL (8-27) Creatinine 0.57mg/dL (0.57-1.00) Estimat Glomerular Filtration Rate 154mL/min (>59) Glucose Level 136mg/dL (60-99) Calcium Level 9.2mg/dL (8.5-10.1) Magnesium Level 1.8mg/dL (1.6-2.6) Total Bilirubin 0.4mg/dL (0.0-1.2) Aspartate Amino Transf (AST/SGOT) 113U/L (0-50) Alanine Aminotransferase (ALT/SGPT) 114U/L (0-32) Alkaline Phosphatase 86U/L (25-165) Total Protein 6.8g/dL (6.4-8.4) Albumin 4.1g/dL (3.4-5.0) Lipase 114U/L (13-60) Hold Urine Received (Received) X-Ray Abdominal Interpretation Large amount of stool. Ascites. Cannot exclude volvulus. Study: 2 view Interpretation / Wet Read by: Wet read ED physician CT Abd / Pelvis Interpretation CONCLUSION: 5cm focal area of sigmoid wall thickening and narrowing, neoplasm must be excluded. Multiple splenic and hepatic masses do not reflect simple cysts, nonspecific, cannot rule out metastasis. Severe fecal loading of a capacious colon, probable chronic constipation and/or megacolon. No volvulus. Electronically signed by Linette Orosco MD Study type: Abdominal CT IV contrast Interpretation / Wet Read by: Interpret - Radiologist Re-Eval/Medical Decision Med Decision/Clinical Course 61-year-old with advanced ovarian cancer presents with abdominal pain and constipation. CT of her abdomen shows a previously observed thickening of the sigmoid colon just distal to the splenic flexure. There appears to be gas passing through that, but restriction of the abundant solids proximal to it. She has not had good experience in the past with likely. She was begun with lactulose on a 3 times a day regimen to soften and remove out the impacted stool. Return if worsening. Follow up with PCP and oncology. Thickening in the sigmoid colon is presumably tumor, whether metastatic or primary unknown. She might conceivably require surgery to relieve the obstruction. Source of Hx: Old records Re-Evaluation/Progress #1: Time of Eval: 23:34 Re-Evaluation/Progress Note: Discussed x-ray results and need for CT. Patient is amenable to the plan. Re-Evaluation/Progress #2: Time of Eval: 12:32 Re-Evaluation/Progress Note: Discussed lab and CT results and plan to discharge. Patient is amenable to the plan. Return precautions given. All other questions addressed. Counseled Regarding: Diagnosis, Lab results, Need for follow-up, When/why to return to ED Discharge & Departure Primary Impression: Abdominal pain Additional Impressions: Ovarian cancer Constipation MALIGNANT NEOPLASM OF SIGMOID COLON Disposition: Home Discharge Condition All VS Reviewed: Yes Condition: Improved Patient Instructions: Acute Abdominal Pain (ED), Constipation (ED), Lactulose ( By mouth) Additional Instructions: Begin lactulose 2 tablespoons three times daily until you are having frequent soft or liquid stools. Follow-up with your doctor in the office. Return for any fever, vomiting, or any other new symptoms of concern. You may call tonight questions at [phone]. I will be here all night. Referrals: Mellisa Dhillon (PCP) Reji Buchanan Attestation Portions of this note were transcribed by Arslan Gamboa. I, Dr. Martin, personally performed the history, physical exam and medical decision-making; I reviewed and confirmed the accuracy of the information in the transcribed note. Signed by: Emily Gomez, 10/27/2016 at 00:41 copies to: Mellisa Dhillon; Reji Buchanan Christopher W MD October 26, 2016 22:38 ARSLAN GAMBOA October 26, 2016 22:46
[2016-10-26 22:51] LABS: Magnesium 1.8 mg/dL (1.6-2.6)
[2016-10-27] MEDS ORDERED: Lactulose 20 Gm/30 mL 30 mL Syrup PO SCH (00:35)
[2016-10-27] MEDS ORDERED: LACT10SO60 PO (00:39)
[2016-10-27 00:50] VITALS: BP 128/77; PULSE 82; RESP 14; O2SAT 98
--- NOTE | 2016-10-27 08:20 | DRSVH ---
PROCEDURE: CT ABDOMEN AND PELVIS WITH CONTRAST ([id number]) INDICATIONS: possible volvulus TECHNIQUE: After the administration of intravenous contrast, 5 mm thick sections acquired from the diaphragm to the symphysis. 5 mm coronal and sagittal reformats were acquired. For radiation dose reduction, the following was used: automated exposure control, adjustment of mA and/or kV according to patient siz e. COMPARISON: Abdomen series 10/26/2016; CT abdomen and pelvis 09/15/2016 FINDINGS: Preliminary report by overnight caregiver radiology Image quality: Excellent. ABDOMEN: Lung bases: Lung bases are clear. Heart size is normal. Solid organs: Liver and spleen show interval enlargement of prior metastases and development of new lesions. For example, pre-existing mass in the medial left hepatic lobe shows further increase in siz e from 1.7 cm on last exam a 2.8 cm currently. Gallbladder is contracted. Biliary system is non dila chrissy. Pancreas enhances normally. No adrenal nodules. Kidneys demonstrate normal size and enhanceme nt, without hydronephrosis. Peritoneum and bowel: Small bowel loops demonstrate normal wall thickness and caliber. There is consi derable air and moderate stool throughout nondistended colon proximal to an area of pre-existing sigm oid wall thickening which does enhance and is suspect for malignant infiltration and partial obstruct ion. No evidence of volvulus. No free fluid or air. Peritoneal nodularity such as series 2/images 56 and 59 again noted compatible with tumor implants. Nodes and vessels: No retroperitoneal or mesenteric adenopathy by size criteria. Aorta and inferior vena cava are normal in size. Miscellaneous: No ventral hernias. PELVIS: Genitourinary: Bladder wall thickness is normal. Uterus is surgically absent secondary to history of uterine cancer. The 2 cm ill-defined enhancing mass over the superior left vaginal cuff appears slig htly larger. Miscellaneous: No inguinal hernias or adenopathy. Bones: Focal sclerosis in the left ischium is unchanged. 2 rounded foci of sclerosis in the left sacr um also unchanged. Multilevel disc degeneration. No vertebral body compression fractures. IMPRESSION: 1. Colonic distention proximal to a persistent area of enhancing wall thickening in the sigmoid colon suspect for neoplasm but inflammatory disease is not excluded. 2. Progressive metastatic disease from known uterine cancer with increased size and number of hepatic lesions. Splenic metastases as before. 3. Peritoneal implants and enhancing mass over the left vaginal cuff also suspect for metastatic depo sits are reidentified and slightly more prominent. 4. Nonspecific areas of sclerosis in the left sacrum and ischium Major findings are concordant with the preliminary report Dictated by: Pillo Santoro M.D. on 10/27/2016 at 7:54 Approved by: Pillo Santoro M.D. on 10/27/2016 at 8:18
--- NOTE | 2016-10-27 09:27 | DRSVH ---
PROCEDURE: X-RAY ACUTE ABDOMINAL SERIES ([id number]) INDICATIONS: ovarian cancer, constipation, pain TECHNIQUE: One view chest and two views of the abdomen were acquired. COMPARISON: [facility], CT, CT ABD PELVIS W CON, 10/26/2016, 23:54. [facility], CR, XR CHEST 1VW (PORTABLE), 09/13/2016, 19:29. FINDINGS: Surgical changes and devices: Stable positioning of left subclavian chest port. Chest: Lungs are clear, aside from streaky opacities involving the medial lung bases. Heart size is normal. No pleural effusions. No pneumoperitoneum. Abdomen: Moderate to severe fecal loading present and there is moderate gaseous distention of the col on to the sigmoid level. Bones: No suspicious bony lesions. IMPRESSION: Moderate to severe fecal loading with moderate distention of the colon to the level of the sigmoid. Underlying stricture and/or neoplasm cannot be excluded. Streaky bibasilar opacities present which may be related to atelectasis. Correlate clinically. Dictated by: Quincy ROJAS Interpreted: Anthony Santoro MD on 10/27/2016 at 9:24 Transcribed by: DELFINA on 10/27/2016 at 9:27 Approved by: Pillo Santoro M.D. on 10/27/2016 at 10:50
--- NOTE | 2016-10-27 16:05 | NUR ---
CONSTIPATION PATIENT CALLED CLINIC STATING SHE HAD BEEN TO ED YESTERDAY W/ABDOMINAL PAIN AND C/O CONSTIPATION. SCAN WAS DONE. PATIENT HAS NOT EATEN TODAY. PATIENT IS VOMITING BOTH LACTULOSE AND MIRALAX UP. DR. MEDELLIN OUT OF CLINIC TODAY SO DR. ADAMSON REVIEWED SCAN. PATIENT WAS TOLD TO RETURN TO ED FOR RE-EVALUATION. PATIENT WAS CONTACTED W/THIS UPDATE.
[2016-10-27] MEDS ORDERED: ASCO250T7 PO (20:20)
[2016-10-27] MEDS ORDERED: ACET325T51 PO (20:20)
== END 2016-10-27 00:52 | disposition home or self-care (01) ==
LOC: SED 21:44
DX: R10.30 Lower abdominal pain, unspecified (principal); K59.00 Constipation, unspecified; C56.9 Malignant neoplasm of unspecified ovary; C18.7 Malignant neoplasm of sigmoid colon; Z88.8 Allergy status to other drugs, medicaments and biological substances; I11.0 Hypertensive heart disease with heart failure; I50.30 Unspecified diastolic (congestive) heart failure; E03.9 Hypothyroidism, unspecified
CPT/HCPCS: 36415; 74022; 74177; 80053; 83690; 83735; 85025; 96374; 99285; J1885; Q9967

== ENCOUNTER 2016-10-27 16:34 | Inpatient (IN) | payer OTHER ==
[~2016-10-27] VITALS: Ht 160 cm; Wt 65.4 kg
[~2016-10-27 16:34] MED LIST changes: +LACT10SO60 PO
[2016-10-27 16:47] VITALS: BP 121/82; PULSE 85; RESP 16; O2SAT 99
[2016-10-27] MEDS ORDERED: 0.9% Sodium Chloride 1,000 ML IV ONE (18:07)
[2016-10-27] MEDS ORDERED: Ondansetron 2 mg/mL 2 mL Inj IVPUSH ONE (18:10)
--- NOTE | 2016-10-27 18:10 | ED.REPORT ---
HPI-Abd Pain F 40 and Over Date of Service October 27, 2016 ED Provider: Blayne Almazan MD The patient is a 61 year old female who is status post hysterectomy with a history of recurrent uterine carcinosarcoma and hiatal hernia who presents to the ED due to abdominal pain for the past 2-3 days. She is constipated and her last bowel movement was 6 days ago. She was seen here last night and prescribed lactulose, but immediately vomited it up. She took 2 sips of MiraLAX and vomited again. She saw Dr. Buchanan on Monday at which time her stomach was a little bloated. She takes a stool softener regularly. She is passing gas, has been able to keep down water, but has not been able to eat food. She denies fever and change in weight, Nursing Notes Stated Complaint: ABDOMINAL PAIN, CONSTIPATION Chief Complaint: Female Abdominal Pain Nursing Notes Reviewed: Yes ([employer] not reconciled) Allergies: Coded Allergies: magnesium sulfate (Verified Allergy, Severe, VOMITING, 09/13/16) potassium (Verified Allergy, Severe, VOMITING, 09/13/16) Scheduled Ascorbic Acid (Vitamin C) 250 Mg Tab.chew 1,000 MG PO QAM Aspirin (Aspirin) 81 Mg Tablet 81 MG PO QAM Cholecalciferol (Vitamin D3) (Vitamin D) 1,000 Unit Tablet 2,000 UNIT PO QAM Levothyroxine (Levoxyl) 112 Mcg Tablet 112 MCG PO QAM Metoprolol Succinate ER (Metoprolol Succinate ER) 25 Mg Tab.er.24h 25 MG PO QAM Pantoprazole DR (Pantoprazole DR) 20 Mg Tablet.dr 20 MG PO BID Pyridoxine (Vitamin B-6) 50 Mg Tablet 100 MG PO QAM Scheduled PRN Acetaminophen (Acetaminophen) 325 Mg Tablet 650 MG PO Q4H PRN PRN For Pain General Time Seen by MD: 18:05 Chief Complaint Constipation Hx Obtained From: Patient Arrived By: Walk-in Sudden in Onset?: Yes Onset Occurred: 4 days ago Symptom Duration: Since onset Location: : Diffuse Quality: Painful Severity: Current: Moderate Recent Healthcare: Recent doctor visit Similar Sx Previous: Yes Past Medical History Past Medical History Notes: oncologist: Serafin Buchanan Seen yesterday by oncologist and in ED, had CT scan last night Past Medical History 1. 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 Hypothyroidism. 3. Hypertension. 4. Diastolic heart failure with her last echocardiogram dated July 26, 2016 reporting an EF of 65%-70% which is unchanged. 5. Heart murmur 6. Cardiomyopathy 7. DVT legs 1974 8. Hiatal hernia Past Surgical History Appendectomy Hysterectomy Biopsies Smoking History Never Smoker Social History Other Social History: Good social support, Ambulatory Status Independent Review of Systems Constitutional: Denies: Fever GI: Reports: Abdominal pain, Constipation, Vomiting, Denies: Bloody/tarry stool Complete sys rev & neg: except as marked. Endocrine: Denies: Weight gain, Weight loss Physical Exam Vital Signs Vital Signs (First) Date Time Temp Pulse Resp B/P Pulse Ox O2 Delivery O2 Flow Rate FiO2 10/27/16 16:47 36.8 85 16 121/82 99 10/27/16 19:59 Room Air Initial VS: Reviewed Head / Eyes: Atraumatic, Normocephalic, PERRL ENT: Mucous membranes moist Neck: Supple, Non-tender Extremities: Vascular intact, Neuro intact, No swelling, No tenderness Skin: Warm, Dry General/Constitutional: Awake, Alert, No acute distress, Well appearing, Cooperative, Not toxic appearing Respiratory / Chest: Atraumatic, Breath sounds NL, Breath sounds = bilat, No respiratory distress Cardiovascular: Heart rate NL, Regular rhythm, Heart sounds NL, No gallop Bowel Sounds / Distention: Positive: Distention mild some abdominal distension but not particualrly tender Back: Atraumatic, Inspection NL, Full range of motion Interpretation & Diagnostics Interpretation & Diagnostics: Please also see labs and CT abdomen from last night in the ED Lab Results Interpretation Result Diagram: 10/27/16181710/27/161817 Test 10/27/16 18:18 10/27/16 18:21 White Blood Count 4.5th/mm3 (3.8-10.1) Red Blood Count 3.08mil/mm3 (3.90-5.20) Hemoglobin 11.3g/dL (12.0-15.6) Hematocrit 34.4% (35.0-46.0) Mean Corpuscular Volume 111.7fL (81-100) Mean Corpuscular Hemoglobin 36.7pg (27.0-35.0) Mean Corpuscular Hemoglobin Concent 32.8% (32.0-37.0) Red Cell Distribution Width 13.2% (12.3-15.4) Platelet Count 146bil/L (150-400) Neutrophils (%) (Auto) 91.2% (40-74) Lymphocytes (%) (Auto) 7.3% (14-46) Monocytes (%) (Auto) 1.1% (4-12) Eosinophils (%) (Auto) 0% (0-5) Basophils (%) (Auto) 0% (0-3) Sodium Level 141mEq/L (134-144) Potassium Level 3.7mEq/L (3.5-5.2) Chloride Level 103mEq/L (97-108) Carbon Dioxide Level 24mmol/L (18-29) Blood Urea Nitrogen 16mg/dL (8-27) Creatinine 0.56mg/dL (0.57-1.00) Estimat Glomerular Filtration Rate 157mL/min (>59) Glucose Level 122mg/dL (60-99) Calcium Level 9.7mg/dL (8.5-10.1) Magnesium Level 2.0mg/dL (1.6-2.6) Total Bilirubin 0.6mg/dL (0.0-1.2) Aspartate Amino Transf (AST/SGOT) 104U/L (0-50) Alanine Aminotransferase (ALT/SGPT) 127U/L (0-32) Alkaline Phosphatase 92U/L (25-165) Total Protein 6.7g/dL (6.4-8.4) Albumin 3.9g/dL (3.4-5.0) Lipase 54U/L (13-60) Thyroid Stimulating Hormone (TSH) 2.950uIU/mL (0.450-4.500) Prothrombin Time 9.4sec (8.1-12.5) Prothromb Time International Ratio 0.88ratio Hold Sweeney Top Tube Received (Received) Lab Results Interpretation: CBC normal + CMP normal except LFT abnormalities, chronic Re-Eval/Medical Decision Med Decision/Clinical Course This is a 61-year-old female on chemotherapy for uterine sarcoma who presents to the emergency department having been seen last night following a CT scan abdomen which was obtained for increasingly obstructive symptoms with the complaint of bloating, lack of bowel movement, and abdominal discomfort. The patient that I do not have vomiting, and while there was ashen for malignancy in the sigmoid, and a concern for partial retraction the hope was that it would improve with aggressive bowel regimen. However the patient has attempted lactulose, and MiraLAX today-but is now developed vomiting, and says return to the emergency department. She has had no fever, she is still passing some gas. On exam she appears mildly uncomfortable but not visible distress. Lungs are clear, her abdomen is slightly distended, but not particular tender. There is no guarding rebound or evidence of alex peritonitis. Blood work was obtained and was normal, except the liver function tests which showed no metastases-is generally unchanged. I reviewed the CT scan from last night, and the concern in this setting now she has alex obstructive symptoms, visit this would not actually be amenable to medical therapy, but may require surgical management and intervention. I consulted Dr. Lord on-call for surgery came and saw the patient and agrees, and his recommendation is admission to the hospitalist service and surgery will follow. In the mornings can attempt a Gastrografin and enema for further clarification, but it is anticipated surgical relief of his obstruction may be required. The on-call oncologist is also being notified. Source of Hx: Old records Consultation #1: Referral / Consult Name: Logan Lord MD Consulted With: Surgeon Call Returned at: 18:35 Generating Station Mechanic: Will see patient, Agrees with eval, Agrees with plan Note: Case discussed. Dr. Lord will and see the pt in about an hour. Consultation #2: Referral / Consult Name: Nnamdi Jamison MD Call Returned at: 20:00 Generating Station Mechanic: Agrees with eval, Agrees with plan Note: Case discussed with oncology. Consultation #3: Referral / Consult Name: Chantell Saxena DO Call Returned at: 20:22 Generating Station Mechanic: Agrees with eval, Agrees with plan Note: Case discussd. Differential Diagnosis: Positive: Bowel obstruction, Malignancy, Negative: Ectopic preg ruptured, Ectopic , Esophageal rupture, Foreign body, Gun shot wound abdomen, Mesenteric ischemia, Ovarian torsion, Pancreatitis, Peptic ulcer disease, Peritonitis, Porphyria, Stab wound abdomen Counseled Regarding: Diagnosis, Lab results, Need for admission Discharge & Departure Primary Impression: Bowel obstruction Intestinal obstruction type: other intestinal obstruction Qualified Code: K56.69 - Other intestinal obstruction Additional Impressions: History of uterine cancer Metastatic disease Disposition: ADMITTED TO HOSPITAL Discharge Condition All VS Reviewed: Yes Condition: Stable Referrals: Mellisa Dhillon (PCP) Scribe Attestation Portion of this note were transcribed by Tressa Mason. I, Dr.Matthew Almazan, personally performed the history, physical exam, and medical decision-making: I reviewed and confirmed the accuracy for the information in the transcribed note. Signed by: trip Boyer, 10/27/161999 copies to: Mellisa Dhillon Matthew F MD October 27, 2016 18:09 Tressa Mason October 27, 2016 18:14
[2016-10-27] MEDS: HYDROmorphone 0.5 mg/0.5 mL iSecure Syringe IVPUSH PRN ×2 (18:22→19:58)
[2016-10-27 18:28] LABS: BASOPHILS % (AUTO) 0 % (0-3); EOSINOPHILS % (AUTO) 0 % (0-5); MONOCYTES % (AUTO) 1.1 % (4-12); Mean Corpuscular Hemoglobin 36.7 pg (27.0-35.0); Mean Corpuscular Volume 111.7 fL (81-100); NEUTROPHILS % (AUTO) 91.2 % (40-74); Platelet Count 146 bil/L (150-400)
[2016-10-27 19:59] VITALS: BP 110/82; PULSE 78; RESP 20; O2SAT 99
[2016-10-27] MEDS ORDERED: ACET325T51 PO (20:20)
[2016-10-27] MEDS ORDERED: ASCO250T7 PO (20:20)
[2016-10-27] MEDS ORDERED: Ondansetron 2 mg/mL 2 mL Inj IVPUSH PRN (21:00)
[2016-10-27 21:12] VITALS: RESP 20; O2SAT 99
[2016-10-27 21:27] VITALS: BP 149/91; PULSE 91; RESP 19; O2SAT 96
--- NOTE | 2016-10-27 21:56 | CONS ---
[address] [address] CONSULTATION REPORT PATIENT: ENRIQUETA MORROW : 1955 MR#: [id number] ADMIT: 10/27/2016 JOB ID: [id number] DATE OF SERVICE: 10/27/2016 CHIEF COMPLAINT/IDENTIFICATION: Dr. Almazan and Dr. Buchanan have asked me to see this 61-year-old woman who presents with nausea and vomiting and no bowel movement since last Monday. HISTORY OF PRESENT ILLNESS: The patient has a history of recurrent uterine carcinosarcoma. She has noted bloating for about one week associated with decreased stool output. She had an abdominal CT scan yesterday when she came to the emergency department with similar complaints. She was started on increased cathartics from above and comes in vomiting. Her history of carcinosarcoma goes back to 2011, by her report, when she underwent a hysterectomy and had incidental finding. It was felt that no further intervention was warranted at that time, but in 2014 she tells me that it came back presenting with some vaginal bleeding and that she was treated with radiation but no further surgery and chemotherapy. She tells me she was recently seen on the PET scan to have progressing tumor including some metastatic disease in the right upper quadrant. She was placed on new chemotherapy by her report from Dr. Buchanan. PAST MEDICAL HISTORY: Hypertension, status post appendectomy, hysterectomy. She gives me some odd history of a bowel obstruction around the time that her son was born though she does not believe that any intestines were removed. MEDICATIONS: 1. Metoprolol. 2. Omeprazole. 3. Levothyroxine. ALLERGIES: No real drug allergies just some intolerance of MAGNESIUM and POTASSIUM. SOCIAL HISTORY: She is . She still works at the [employer]. Her is retired and they have two adult sons. She does not smoke cigarettes, she does not drink alcohol. PHYSICAL EXAMINATION: A pleasant woman in no acute distress. Vital signs are recorded in the chart with a temperature of 36.8, pulse is 78 and blood pressure of 110/82. Direct examination reveals a distended abdomen with some tympany, normal bowel tones. Rectal examination is not performed. IMAGING: I have reviewed her CT scan including the report and looked at the images myself. The report notes colonic distention proximal to persistent area of enhancing wall thickening in the sigmoid colon suspicious for neoplasm as well as progressive metastatic disease including omental cakes and peritoneal implants. To my eye, it clearly looks like she has a mechanical obstruction at the level of the distal sigmoid rather than diffuse obstipation. IMPRESSION/PLAN: A 61-year-old otherwise healthy woman with metastatic uterine cancer that is progressing well on chemotherapy who now likely has mechanical large bowel obstruction that is near complete or even possibly complete. She has a normal white count, normal electrolytes without an anion gap. I do not think she needs urgent surgical intervention, but my recommendation would be to get a Gastrografin enema tomorrow morning to confirm the diagnosis of mechanical large bowel obstruction. If it turns out that this is simply obstipation, the Gastrografin enema would also be therapeutic, but I would be very surprised if this is not a mechanical obstruction. I have told her such and I have told her that the only intervention unless Dr. Buchanan has a plan to rapidly shrink the tumor in her pelvis, would be that she have a diverting colostomy in the near future. She is being admitted to the [facility] to the hospitalist service for her nausea and vomiting and for hydration. I have ordered a Gastrografin enema tomorrow, and I will follow up on that with one of the general surgery physician's assistants rounding on her tomorrow. We did discuss the possibility of a laparoscopic colostomy on Monday.
[2016-10-27] MEDS ORDERED: Alum-Mag Hydrox-Simeth 30 mL Suspension PO PRN (22:05)
[2016-10-27 22:15] LABS: INR 0.88 ratio
--- NOTE | 2016-10-27 22:21 | PCM.HPMED ---
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 Patient was recently evaluated at this ER and prescribed lactulose for her obstipation, but was unable to tolerate it. She reports her abdomen has been increasingly bloated and she has been vomiting up any PO intake. She reports passing some flatus but otherwise denies any fever, chills, dysuria, weight change, DOLL, dizziness, CP, or SOB. She was recently changed to 2nd line chemotherapy for her uterine cancer. In the ED, her vital signs were stable and her CBC and CMP were per her baseline. She had a CT abd/pelvis that was remarkable for colonic distension proximal to the sigmoid and hepatic/splenic/peritoneal enhancing masses suspicious of metastases. Gen. surgery was consulted by the ED for possible large bowel obstruction Review of Systems: Complete review of systems negative except as stated in the history of present illness Allergies Coded Allergies: magnesium sulfate (Verified Allergy, Severe, VOMITING, 09/13/16) potassium (Verified Allergy, Severe, VOMITING, 09/13/16) PMH Recurrent uterine carcinosarcoma on 2nd line chemotherapy Hypothyroidism. Hypertension. Aortic Regurg Heart murmur DVT legs 1974 Hiatal hernia Surgical History Appendectomy Hysterectomy Biopsies BTL Family History Extensive family history of CAD Social History Hx Alcohol Use: No Hx Substance Use: No Hx Tobacco Use: No Smoking Status: Never Smoker Living Arrangement: with Family Exam Vital Signs Vital Sign - Last Date Time Temp Pulse Resp B/P Pulse Ox O2 Delivery O2 Flow Rate FiO2 10/27/16 21:27 36.9 91 19 149/91 96 Room Air Exam Gen.: Well develop female who appears in no acute distress, alert and oriented 3 HEENT: PERRLA, EOMI, sclerae anicteric, oropharynx moist and pink Neck: Soft, nontender, no JVD noted CV: Regular rate and rhythm with soft systolic murmur, peripheral pulses intact and equal Respiratory: CTA B, no wheezing or rhonchi, normal respiratory effort Abdomen: Moderately firm, distended, mildly tender to palpation diffusely, dull to percussion, no rebound, no rashes noted, decrease bowel sounds MSK: Muscle strength grossly intact and equal, no swelling or tender joints, no clubbing or peripheral cyanosis or edema Neuro: Grossly intact, no focal weakness, fluent speech Skin: Warm, dry, intact Psych: Appropriate mood and affect, linear thought processes, cooperative Lab and Diagnostics Result Diagram: 10/27/16181710/27/161817 X-Rays, CTs and MRIs PROCEDURE: CT ABDOMEN AND PELVIS WITH CONTRAST ([id number]) IMPRESSION: 1. Colonic distention proximal to a persistent area of enhancing wall thickening in the sigmoid colon suspect for neoplasm but inflammatory disease is not excluded. 2. Progressive metastatic disease from known uterine cancer with increased size and number of hepatic lesions. Splenic metastases as before. 3. Peritoneal implants and enhancing mass over the left vaginal cuff also suspect for metastatic deposits are reidentified and slightly more prominent. 4. 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 Suspected Bowel Obstruction, POA -As demonstrated on CT abdomen and pelvis. Possibly due to metastatic disease. -General surgery has been consulted and recommends Gastrografin enema tomorrow -NPO -IV NS 100mls/hr while npo -Symptomatic management with IV Zofran and Dilaudid Recurrent metastatic uterine cancer, POA -Currently on second line chemotherapy, as managed by Dr. Buchanan, Oncologist -Likely the cause of patient's macrocytic anemia and elevated transaminases Elevated transaminase level, unknown chronicity, POA -likely secondary to chemotherapy Macrocytic anemia, unknown chronicity, POA -likely secondary to chemotherapy Essential hypertension, POA -Stable, continue patient's metoprolol when taking PO Hypothyroidism, POA -Stable, continue patient's levothyroxine when taking PO -TSH 2.95 on admission Tylenol when necessary for fever/pain - minimize use due to elevated transaminase levels Zofran when necessary for nausea Restoril when necessary for insomnia CODE STATUS: Full resuscitation, may benefit from palliative care consult Disposition: Patient is admitted under observation status, expected length of stay greater than 2 nights, due to risk of adverse events, medical complexity, and decompensation Pain Evaluation: Adequate Pain Control VTE Prophylaxis: Sub-Q Heparin (Unfractionated), SCDs Resuscitation Status: CPR: Attempt Resuscitation Attending Statement The patient was seen and examined together with house staff on 10/27/2016 and I have added additional information to the note above. Jesús Villalba DO October 27, 2016 22:21 Chantell Saxena DO October 28, 2016 02:51
[2016-10-27] MEDS: 0.9% Sodium Chloride 1,000 ML IV SCH (22:34)
[2016-10-27 22:39] LABS: APPEARANCE,URINE HAZY (CLEAR,HAZY); COLOR,URINE AMBER (YELLOW); OCCULT BLOOD,URINE MODERATE (NEGATIVE); PH,URINE 5.5 (5.0-8.0)
[2016-10-27 22:51] LABS: ICTOTEST,URINE NEGATIVE (Negative)
[2016-10-27] MEDS: Pantoprazole 20 mg ER24 Tablet PO SCH (23:14)
[2016-10-27] MEDS: MeTOProlol XL 25 mg ER24 Tablet PO SCH (23:14)
[2016-10-28] MEDS: Heparin 5,000 Unit/mL Inj SUBQ SCH ×4 (00:12→23:37)
[2016-10-28 05:31] VITALS: BP 108/59; PULSE 77; RESP 16; O2SAT 100
--- NOTE | 2016-10-28 05:58 | NUR ---
Admission Pt arrived to [facility] at 2124 alert and oriented x 3. Pt able to ambulate with a steady gait onto the scale and into the bed. Pt denies chest pain and shortness of breath. Denies n/v/d. Pt Oriented to call light, room, bed controls, television, phone, and bathroom. Pt requested pain medication for abd pain and sleeping medication. MD ordered Temazepam and Tylenol which was helpful states pt. Pt appeared to be asleep most of the shift without distress noted. SCDs in place along with non slip socks. Pt continues with NPO status. VSS. Plan is to have an XR Gastrografin Enema today. Care ongoing.
[2016-10-28] MEDS: 0.9% Sodium Chloride 1,000 ML IV SCH ×2 (06:06→17:00)
[2016-10-28 06:54] LABS: BASOPHILS % (AUTO) 0 % (0-3); EOSINOPHILS % (AUTO) 1.9 % (0-5); MONOCYTES % (AUTO) 2.8 % (4-12); NEUTROPHILS % (AUTO) 50.9 % (40-74); Platelet Count 106 bil/L (150-400)
[2016-10-28] MEDS: Pantoprazole 20 mg ER24 Tablet PO SCH ×2 (08:21→17:01)
[2016-10-28] MEDS: MeTOProlol XL 25 mg ER24 Tablet PO SCH (08:29)
[2016-10-28] MEDS: Ascorbic Acid 500 mg Tablet PO SCH (08:29)
[2016-10-28 08:37] VITALS: BP 118/69; PULSE 76; RESP 16; O2SAT 98
--- NOTE | 2016-10-28 12:15 | DRSVH ---
PROCEDURE: X-RAY ENEMA WITH GASTROGRAPHIN ([id number]) INDICATIONS: mechanical vs functional large bowel obstruction? COMPARISON: [facility], CT, CT ABD PELVIS W CON, 09/15/2016, 15:16. FINDINGS: KUB: Preprocedural thiokol operator film demonstrates moderate fecal loading. No suspicious abdominal calcific ations. Visualized solid organ contours appear normal in size. No suspicious bony lesions. Colon: Gastrografin was instilled to the level of the mid sigmoid colon where no additional contrast medium was able to be instilled distal from this point. Stricture and/or mass is suspected. The atte nding physician was personally present in the room during the examination. IMPRESSION: Limited Gastrografin enema demonstrating opacification of the rectum and the small portio n of the sigmoid at which point Gastrografin was unable to be further instilled. Stricture and/or ma ss is suspected. Endoscopy is recommended. Dictated by: Quincy ROJAS Interpreted: Rah Schneider MD on 10/28/2016 at 12:09 Transcribed by: SASHA on 10/28/2016 at 12:15 Approved by: Rah Schneider M.D. on 10/28/2016 at 13:37
[2016-10-28] MEDS: HYDROmorphone 0.5 mg/0.5 mL iSecure Syringe IVPUSH PRN (12:52)
--- NOTE | 2016-10-28 13:31 | NUR ---
NUTRITION ASSESSMENT: ASSESS: 61YO F admit with possible bowel obstruction, surgery consulted, GI recommending endoscopy. Possible colonic distention suspicious of mets. PMHX: Uterine cancer with mets to liver/spleen on chemo therapy, hypothyroidism,anemia DIET: NPO LABS: Alb 3.2, Ca 8.3 MEDS: Reviewed GI: No BM SKIN: Jordy Yao WEIGHT: 60.4kg BMI: 23.0 EST.NEEDS: CANCER Kcal: [id number] Pro: 60-90g NUTRITION DIAGNOSIS: (1) Inadequate oral intake related to possible bowel obstruction/abdominal pain/n/v as evidenced by Clear liquid diet status. INTERVENTION: (1) Monitor for diet advancement vs. potential for nutrition support. MONITOR/EVALUATE: GI status, diet, labs. F/U per high risk.
--- NOTE | 2016-10-28 14:53 | NUR ---
RADIOLOGY/ENEMA P- Patient has fecal impaction per CT. Experiencing abdominal pain 09/26. I-Patient down to radiology at 1000 for Gastrografin enema, returned 1230. Had small amount of stool (5 hard marbles)in radiology per patient, states "I am passing some gas. Patient given 0.5mg IVP Dilaudid for pain, reports total relief. Heating pad applied to abdomen. E- Call in to Dr Lord, awaiting plan. Patient still NPO, resting comfortably
--- NOTE | 2016-10-28 16:33 | NUR ---
Social Work Note: Screen Note Data& Assessment: EMR reviewed. Patient is a 61 year old female admitted on 10/27/16 for Bowel Obstruction. Pt has [facility] for insurance coverage and sees Mellisa Loya MD for primary care. Pt lives in [place] with family and is independent at baseline. SW will continue to follow for discharge planning needs. . Plan: Anticipated discharge home via POV when medically ready. SW to continue to follow for any discharge needs. Adelaida Levy LMSW, ACM
--- NOTE | 2016-10-28 16:43 | PCM.PNMED ---
Subjective Date of Service October 28, 2016 Subjective No bowel movement yet. Abdominal distention slightly improved per patient. Afebrile. No vomiting. Exam Vital Signs Vital Sign - Last Date Time Temp Pulse Resp B/P Pulse Ox O2 Delivery O2 Flow Rate FiO2 10/28/16 08:37 36.8 76 16 118/69 98 Room Air Intake and Output 10/27/16 10/27/16 10/28/16 Cumulative From/Thru 15:00 23:00 07:00 10/27/16 16:47 - 10/28/16 05:30 Intake Total 652 ml 652 ml Output Total 200 ml 200 ml Balance 452 ml 452 ml Intake IV Total 652 ml 652 ml Output Urine Total 200 ml 200 ml Exam Gen.: Well develop female who appears in no acute distress, alert and oriented 3 HEENT: PERRLA, EOMI, sclerae anicteric, oropharynx moist and pink Neck: Soft, nontender, no JVD noted CV: Regular rate and rhythm with soft systolic murmur, peripheral pulses intact and equal Respiratory: CTA B, no wheezing or rhonchi, normal respiratory effort Abdomen: Moderately firm, distended, mildly tender to palpation diffusely, dull to percussion, no rebound, no rashes noted, decrease bowel sounds MSK: Muscle strength grossly intact and equal, no swelling or tender joints, no clubbing or peripheral cyanosis or edema Neuro: Grossly intact, no focal weakness, fluent speech Skin: Warm, dry, intact Psych: Appropriate mood and affect, linear thought processes, cooperative IVs and Medications Medications Reviewed: Medications were reviewed in detail Lab and Diagnostics Result Diagram: 10/28/1661410/28/16614 X-Rays, CTs and MRIs PROCEDURE: CT ABDOMEN AND PELVIS WITH CONTRAST ([id number]) IMPRESSION: 1. Colonic distention proximal to a persistent area of enhancing wall thickening in the sigmoid colon suspect for neoplasm but inflammatory disease is not excluded. 2. Progressive metastatic disease from known uterine cancer with increased size and number of hepatic lesions. Splenic metastases as before. 3. Peritoneal implants and enhancing mass over the left vaginal cuff also suspect for metastatic deposits are reidentified and slightly more prominent. 4. Nonspecific areas of sclerosis in the left sacrum and ischium Major findings are concordant with the preliminary report Additional Diagnostics PROCEDURE: X-RAY ENEMA WITH GASTROGRAPHIN ([id number]) INDICATIONS: mechanical vs functional large bowel obstruction? COMPARISON: [facility], CT, CT ABD PELVIS W CON, 09/15/2016, 15:16. FINDINGS: KUB: Preprocedural water pollution specialist film demonstrates moderate fecal loading. No suspicious abdominal calcifications. Visualized solid organ contours appear normal in size. No suspicious bony lesions. Colon: Gastrografin was instilled to the level of the mid sigmoid colon where no additional contrast medium was able to be instilled distal from this point. Stricture and/or mass is suspected. The attending physician was personally present in the room during the examination. IMPRESSION: Limited Gastrografin enema demonstrating opacification of the rectum and the small portion of the sigmoid at which point Gastrografin was unable to be further instilled. Stricture and/or mass is suspected. Endoscopy is recommended. 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 # Large Bowel Obstruction due to metastatic cancer, POA -As demonstrated on CT abdomen and pelvis. due to metastatic disease. - Gastrografin enema as above -Start her on clear liquid diets per surgery -Patient may need surgery and diverting colostomy. Await surgical recommendation and discussion with patient -IV NS 100mls/hr while npo -Symptomatic management with IV Zofran and Dilaudid # Recurrent metastatic uterine cancer, POA -Currently on second line chemotherapy, as managed by Dr. Buchanan, Oncologist -Likely the cause of patient's macrocytic anemia and elevated transaminases # Elevated transaminase level, unknown chronicity, POA -likely secondary to chemotherapy # Macrocytic anemia, unknown chronicity, POA -likely secondary to chemotherapy # Essential hypertension, POA -Stable, continue patient's metoprolol when taking PO # Hypothyroidism, POA -Stable, continue patient's levothyroxine when taking PO -TSH 2.95 on admission Tylenol when necessary for fever/pain - minimize use due to elevated transaminase levels Zofran when necessary for nausea Restoril when necessary for insomnia CODE STATUS: Full resuscitation, may benefit from palliative care consult Disposition pending clinical course VTE Prophylaxis: Sub-Q Heparin (Unfractionated), SCDs VTE Mechanical Devices: Intermittant Pneumatic CD Resuscitation Status: CPR: Attempt Resuscitation Montrell Goodrich MD October 28, 2016 16:43
--- NOTE | 2016-10-28 19:00 | PROG NOTE ---
[address] [address] PROGRESS NOTE PATIENT: ENRIQUETA MORROW : 1955 MR#: [id number] ADMIT: 10/27/2016 JOB ID: [id number] DATE: 10/28/2016 SUBJECTIVE: The patient is seen in followup after initial consultation by Dr. Lord for her colon obstruction. Today, she had a Gastrografin enema which showed no ability to identify the lumen or have flow beyond the level of the sigmoid colon. No luminal irregularity was noted, although the study was somewhat limited by lack of passage of contrast proximal to her obstruction. She states that she did have some passage of gas and stool following the enema study, but it was not voluminous. She has no nausea. OBJECTIVE: Temperature 36.8, pulse 76, blood pressure 118/69, saturation 98% on room air. General: She is sitting up in bed, in no acute distress. Chest is clear. Heart: Regular rate and rhythm. No murmurs. Abdomen is distended, fairly firm. She has no guarding. There are no hernias. She has a midline laparotomy scar without abnormalities. LABORATORIES: White blood cell count 1.1, hematocrit 28.9, platelets 106, creatinine 0.51. Glucose 89, albumin 3.2. ASSESSMENT AND PLAN: A 61-year-old woman with sigmoid colon obstruction, presumed secondary to involvement with her metastatic uterine carcinosarcoma. I told her that I agree with Dr. Lord, that I think a colostomy is her only viable option. I do not think this will get better with conservative treatment. Since the Gastrografin study showed no passage of contrast beyond the level of blockage, I think that other interventions, such as a colon stent are probably not viable. Nonetheless, she is very hesitant to commit to moving forward with surgical intervention, and asks that despite the fact that I think it is not technically possible, she wants to have an opinion directly from a repair service clerk. I will call Gastroenterology and asked them to weigh in on that.
[2016-10-28] MEDS ORDERED: HYDROmorphone 0.5 mg/0.5 mL iSecure Syringe ONE (19:04)
[2016-10-28 21:50] VITALS: BP 130/72; PULSE 87; RESP 19; O2SAT 95
--- NOTE | 2016-10-28 22:11 | NUR ---
PAIN Pt had last dose of 0.5 mg dilaudid from previous shift--dilaudid discontinued as well as tylenol discontinued. Pt reporting mild pain, increasing to moderate at worst in abdomen with tenderness. Paged Dr. Saxena for pain medication orders, awaiting reply. Addendum: 10/28/16 at 2238 by UCRTIS LEACH RN One time dose of Tylenol ordered. Explained to pt risks of taking tylenol as it will damage the liver, pt understands and states she will take her temazepam to help her sleep and ask for the tylenol when she needs it. Hourly rounding and frequent pain checks.
--- NOTE | 2016-10-28 23:56 | CONS ---
[address] [address] CONSULTATION REPORT PATIENT: ENRIQUETA MORROW : 1955 MR#: [id number] ADMIT: 10/27/2016 JOB ID: [id number] DATE OF SERVICE: 10/28/2016 REQUESTING PROVIDER: Hardik aZmbrano MD. REASON FOR CONSULTATION: High-grade bowel obstruction. HISTORY OF PRESENT ILLNESS: This is a 61-year-old female with a recurrence of uterine cancer at the vaginal cuff even in the setting of prior post hysterectomy BSO. She presents to the hospital with findings consistent with high-grade colonic obstruction. Her CT was reviewed in PACS. She had a Gastrografin and no contrast made it north of the obstructed segment. The plan is for a palliative colostomy on Monday. I was asked to see the patient in regards to the possibility of intracolonic stenting so as to avoid the need for operative intervention. The patient is not having nausea, vomiting. She has a full abdomen. She is passing some flatus and interestingly had "five small poops" after the Gastrografin enema. Additionally, she had a moderate amount of flatus pass with the Gastrografin. ALLERGIES: 1. SODIUM SULFATE. 2. POTASSIUM SULFATE. 3. MAGNESIUM SULFATE. MEDICATIONS: Please see the [employer] list. (Currently during this dictation [employer] is down.) OBJECTIVE: GENERAL: The patient was in no distress. Alert, oriented, cooperative, conversational. ABDOMEN: Was full. Bowel sounds present. No significant tenderness during my exam. LABS: The patient is currently neutropenic. IMAGING: I personally reviewed the CAT scan and the Gastrografin images. ASSESSMENT AND PLAN: A 61-year-old female with recurrent uterine carcinosarcoma. This appears to be creating a high-grade obstruction in the region of the sigmoid colon. It is interesting that the Gastrografin did not get north of the obstructed segment, but she has since been able to pass flatus. I think for now a clear liquid diet would be just fine. I have encouraged her to let us know if she has any increasing symptoms, such as nausea and/or vomiting which may require the need for NG tube. I will discuss with Dr. Zambrano the possibility of going in just prior to his diverting colostomy and attempting to traverse the lesion with the endoscope. If we were able to do that, we could certainly explore the option of a stent and, even at that point, cancel the surgery if we are successful. On the other hand, if in the operating room, we are not able to advance the wire or get a stent across the lesion, then the patient would proceed with the planned surgery.
[2016-10-29] MEDS: 0.9% Sodium Chloride 1,000 ML IV SCH ×2 (03:00→14:29)
--- NOTE | 2016-10-29 04:22 | PROG NOTE ---
[address] [address] PROGRESS NOTE PATIENT: ENRIQUETA MORROW : 1955 MR#: [id number] ADMIT: 10/27/2016 JOB ID: [id number] DATE: 10/28/2016 DIAGNOSIS: Sigmoid tumor obstruction, in the setting of metastatic uterine carcinosarcoma. HISTORY OF PRESENT ILLNESS: The patient is a very pleasant 61-year-old woman with metastatic uterine carcinosarcoma involving the liver, spleen, bowel and peritoneal carcinomatosis. She recently started second line chemotherapy with dacarbazine and gemcitabine under Dr. Buchanan's care. She presented to the ED two nights ago with constipation and abdominal pain and was given lactulose, which she vomited. She presented again last night ad I was contacted by Dr. Blayne Almazan to see this patient in the hospital. She has been severely constipated and bloated for the last week. Over the last two days, she has started nausea and vomiting too, although today she has not been nauseated and has been able to tolerate clear liquid diet well. CT scan was obtained last night and shows progressive metastatic disease involving the liver, spleen and peritoneal carcinomatosis, and also shows partial colon obstruction at the level of the sigmoid with proximal colonic distention. A Gastrografin enema was attempted this morning, but the contrast did not pass the level of obstruction. She has been offered a diverting colostomy and is tentatively scheduled for that on Monday. She is hoping to receive intra-colonic stent if that is advisable and fixes the problem, but if not she is agreeable to undergo a diverting colostomy. Dr. Juarez will be attempting endoscopy tomorrow, and will see if an intracolonic stent could be placed across the stricture or not. PHYSICAL EXAMINATION: Today she appears comfortable. She is sitting up on bed and is aware of her poor prognosis and limited options. She is awake alert and oriented x3. Vital signs are normal. LABORATORIES: Leukocyte count has dropped to 1100 today with 51% neutrophils, hemoglobin 9.3, platelet count 106,000. Chemistry is normal except mild transaminase elevations. Renal function is normal. IMPRESSION/RECOMMENDATIONS: 1. High grade sigmoid obstruction due to metastatic bowel implant. There is no systemic therapy option that would induce tumor shrinkage and relief of obstruction. I completely agree with the options of a colonic stent and if that was not feasible, her only remaining option would be diverting colostomy to which she agrees. 2. Chemotherapy induced neutropenia. Last dose of dacarbazine and gemcitabine were given on October 24. Her leukocyte count today has dropped quite a bit from yesterday. I will place an order for daily Neupogen starting tomorrow, especially given her upcoming surgery. 3. Dr. Buchanan will follow up with this patient on Monday.
[2016-10-29 06:18] VITALS: BP 145/71; PULSE 80; RESP 18; O2SAT 96
--- NOTE | 2016-10-29 06:38 | NUR ---
LEE ANN Informed pt this morning of upcoming filgrastim dose to increase WBC. Pt reports having it before and says Claritin helps with the flu-like symptoms. Told pt I would pass it on and to tell the doctors in morning rounds to get it ordered.
[2016-10-29] MEDS: MeTOProlol XL 25 mg ER24 Tablet PO SCH (07:52)
[2016-10-29] MEDS: Heparin 5,000 Unit/mL Inj SUBQ SCH ×2 (07:52→16:30)
[2016-10-29] MEDS: Ascorbic Acid 500 mg Tablet PO SCH (07:52)
[2016-10-29] MEDS: Pantoprazole 20 mg ER24 Tablet PO SCH ×2 (07:52→18:31)
[2016-10-29 08:33] VITALS: BP 170/80; PULSE 82; RESP 16; O2SAT 98
--- NOTE | 2016-10-29 12:59 | PCM.PNMED ---
Subjective Date of Service October 29, 2016 Subjective Abdominal distention slightly improved. Tolerating clear liquid diet. Going for colostomy tomorrow Exam Vital Signs Vital Sign - Last Date Time Temp Pulse Resp B/P Pulse Ox O2 Delivery O2 Flow Rate FiO2 10/29/16 08:33 36.6 82 16 170/80 98 Room Air Intake and Output 10/28/16 10/28/16 10/29/16 Cumulative From/Thru 14:59 22:59 06:59 10/27/16 16:47 - 10/29/16 06:26 Intake Total 2349 ml 3001 ml Output Total 950 ml 1150 ml Balance 1399 ml 1851 ml Intake Oral 200 ml 200 ml IV Total 2149 ml 2801 ml Output Urine Total 450 ml 650 ml Urine/Stool Mix 500 ml 500 ml Exam Gen.: Well develop female who appears in no acute distress, alert and oriented 3 HEENT: PERRLA, EOMI, sclerae anicteric, oropharynx moist and pink Neck: Soft, nontender, no JVD noted CV: Regular rate and rhythm with soft systolic murmur, peripheral pulses intact and equal Respiratory: CTA B, no wheezing or rhonchi, normal respiratory effort Abdomen: Moderately firm, slightly distended, mildly tender to palpation diffusely, dull to percussion, no rebound, no rashes noted, decrease bowel sounds MSK: Muscle strength grossly intact and equal, no swelling or tender joints, no clubbing or peripheral cyanosis or edema Neuro: Grossly intact, no focal weakness, fluent speech Skin: Warm, dry, intact Psych: Appropriate mood and affect, linear thought processes, cooperative IVs and Medications Medications Reviewed: Medications were reviewed in detail Lab and Diagnostics Result Diagram: 10/28/1661410/28/16614 X-Rays, CTs and MRIs PROCEDURE: CT ABDOMEN AND PELVIS WITH CONTRAST ([id number]) IMPRESSION: 1. Colonic distention proximal to a persistent area of enhancing wall thickening in the sigmoid colon suspect for neoplasm but inflammatory disease is not excluded. 2. Progressive metastatic disease from known uterine cancer with increased size and number of hepatic lesions. Splenic metastases as before. 3. Peritoneal implants and enhancing mass over the left vaginal cuff also suspect for metastatic deposits are reidentified and slightly more prominent. 4. Nonspecific areas of sclerosis in the left sacrum and ischium Major findings are concordant with the preliminary report Additional Diagnostics PROCEDURE: X-RAY ENEMA WITH GASTROGRAPHIN ([id number]) INDICATIONS: mechanical vs functional large bowel obstruction? COMPARISON: [facility], CT, CT ABD PELVIS W CON, 09/15/2016, 15:16. FINDINGS: KUB: Preprocedural food service aide film demonstrates moderate fecal loading. No suspicious abdominal calcifications. Visualized solid organ contours appear normal in size. No suspicious bony lesions. Colon: Gastrografin was instilled to the level of the mid sigmoid colon where no additional contrast medium was able to be instilled distal from this point. Stricture and/or mass is suspected. The attending physician was personally present in the room during the examination. IMPRESSION: Limited Gastrografin enema demonstrating opacification of the rectum and the small portion of the sigmoid at which point Gastrografin was unable to be further instilled. Stricture and/or mass is suspected. Endoscopy is recommended. 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 # Large Bowel Obstruction due to metastatic cancer, POA -As demonstrated on CT abdomen and pelvis. due to metastatic disease. - Gastrografin enema as above - on clear liquid diets per surgery -Patient going for diverting colostomy tomorrow.Gi was consulted by surgeon to try colonoscopy and stenting but they agreed colostomy is the best option. Patient also in agreement with decision -Continue IV NS 100mls/hr -Symptomatic management with IV Zofran and Dilaudid # Recurrent metastatic uterine cancer, POA -Currently on second line chemotherapy, as managed by Dr. Buchanan, Oncologist -Likely the cause of patient's macrocytic anemia and elevated transaminases # Elevated transaminase level, unknown chronicity, POA -likely secondary to chemotherapy # Macrocytic anemia, unknown chronicity, POA -likely secondary to chemotherapy #Pancytopenia -Due to chemotherapy, Neupogen started by oncology # Essential hypertension, POA -Stable, continue patient's metoprolol when taking PO # Hypothyroidism, POA -Stable, continue patient's levothyroxine when taking PO -TSH 2.95 on admission Tylenol when necessary for fever/pain - minimize use due to elevated transaminase levels Zofran when necessary for nausea Restoril when necessary for insomnia CODE STATUS: Full resuscitation, may benefit from palliative care consult Disposition pending clinical course VTE Prophylaxis: Sub-Q Heparin (Unfractionated), SCDs VTE Mechanical Devices: Intermittant Pneumatic CD Resuscitation Status: CPR: Attempt Resuscitation Montrell Goodrich MD October 29, 2016 12:59
--- NOTE | 2016-10-29 13:03 | PROG NOTE ---
[address] [address] PROGRESS NOTE PATIENT: ENRIQUETA MORROW : 1955 MR#: [id number] ADMIT: 10/27/2016 JOB ID: [id number] DATE: 10/29/2016 The patient remains stable. I reviewed all the recommendations and recommended to her that we proceed tomorrow with a laparoscopic diverting colostomy rather than attempt to place a stent. This recommendation is based on the anticipated natural history of her disease as well as her personal goals of getting back to full activity with minimal number of procedures as soon as possible. I am concerned that stent placement, even if successful, may either exacerbate or confuse symptoms of progressive pelvic pain. Functionally, I think she will do best if we do a colostomy now. I will discuss this with Dr. Juarez and, at this point, the patient is open to proceeding with my recommendations for laparoscopic, possible open diverting colostomy tomorrow. I will place her on the OR schedule.
--- NOTE | 2016-10-29 13:17 | PROG NOTE ---
[address] [address] PROGRESS NOTE PATIENT: ENRIQUETA MORROW : 1955 MR#: [id number] ADMIT: 10/27/2016 JOB ID: [id number] DATE: 10/29/2016 SUBJECTIVE: The patient continues to be able to pass a little bit of flatus but still has a pressure sensation in her lower abdomen. She is tolerating clear liquids. She was given a dose of Neupogen this morning. I had a discussion with Dr. Lord about her case and in the context of a disease process that has been going on for five years and currently involved in second-line therapy. Prognosis is a little difficult to predict here, but we suspected that even in the context of this stage [address] findings that is certainly not imminent. In that context, Dr. Lord was favoring proceeding with the diverting colostomy rather than placing an endoscopic stent, especially in the knowledge that if there is progression of pelvic disease with a stent in place, it would be very difficult to differentiate this from some form of complication related to the stent itself. I spoke with Dr. Jamison by telephone this afternoon about her case and explained the rationale for the slight change of plan. Based on his evaluation of her imaging and current presentation, he is concerned that her prognosis is quite poor. He will be touching base with Dr. Buchanan who hopefully will be able to sit down with the patient on Monday to go over some of these sobering issues in a little more detail as the patient really does not have a good understanding at present for her current disease state. OBJECTIVE: The patient is in no distress. Alert, oriented, appropriate, cooperative, conversational. Her was at the bedside. Blood pressure is a little up. Abdomen is still mildly to moderately distended and firm. No guarding. LABORATORIES: None this morning but yesterday she had a low white count at 1.1 and Neupogen was given this morning. Her platelets have also fallen to 106. Hemoglobin is down to 9.3. Liver tests are a little improved. Albumin is 3.2. Creatinine 0.51. ASSESSMENT AND PLAN: This is a 61-year-old female with a high-grade obstructing process in the distal sigmoid region. This is related to a stage IV uterine carcinosarcoma. Prognosis based on imaging appears to be poor. After discussion this morning with Dr. Lord, the patient is definitely on board with proceeding to diversion colostomy as a definitive means at providing consistent bowel decompression. Will, therefore, hold off on any attempt at stent placement. That said, depending on how she is doing clinically tomorrow, surgery may need to be deferred if she has significant thrombocytopenia, neutropenia, etc. NOTE: This is a no charge physician visit. Please do not assess a physician charge for this particular note.
[2016-10-29 18:35] VITALS: BP 159/90; PULSE 70; RESP 18; O2SAT 98
--- NOTE | 2016-10-29 19:31 | NUR ---
Plan of Care/Surg cancelled Pt this AM stated that they had accepted and were completely on board with surgery and colostomy tomorrow. However, through the course of the day and many phone calls and visitors, pt has made a complete change. Pt states now they do not want surgery, that they want to search out other options. Pt was able to speak with dr clayton about this so the am surgery was cancelled.
[2016-10-29 21:28] VITALS: BP 161/83; PULSE 79; RESP 18; O2SAT 96
[2016-10-30] MEDS: Heparin 5,000 Unit/mL Inj SUBQ SCH ×3 (00:04→15:51)
[2016-10-30] MEDS: 0.9% Sodium Chloride 1,000 ML IV SCH ×3 (00:12→21:15)
--- NOTE | 2016-10-30 01:57 | PROG NOTE ---
[address] [address] PROGRESS NOTE PATIENT: ENRIQUETA MORROW : 1955 MR#: [id number] ADMIT: 10/27/2016 JOB ID: [id number] DATE: 10/29/2016 SUBJECTIVE: The patient has rethought her decision to proceed with a diverting loop colostomy tomorrow. She has a number of questions for Dr. Buchanan that she would like to discuss with him on Monday prior to proceeding with any "permanent" procedure. Additionally, I have noted that her absolute neutrophil count is down to 1100 today, and although she has received Neupogen, it appears that she may be approaching a arun of her white count and platelet count, and therefore, I think it would be prudent to put off the surgery even if she did not have second thoughts. Additionally, Dr. Juarez has talked to her a bit more about the possibility of a stent, and she is considering that. She is off the OR schedule for tomorrow.
--- NOTE | 2016-10-30 03:41 | NUR ---
PLAN OF CARE Spoke with pt about the changing plan of care. Pt remains optimistic, and looks to try other interventions rather than surgery. Pt stated "They're just so quick to cut you open and change your body. I don't understand why they can't just take out the tumor if that's what's blocking me up." Pt described the gastrografin was successful in producing some stool and gas, and said she was going to ask in the morning about doing this again. Pt wanted to hear from Dr. Buchanan as "Dr. Buchanan knows me better than any of these doctors--I want to hear his opinion too." RN encouraged pt to bring these issues up in rounds in the morning.
[2016-10-30] MEDS: Polyethylene Glycol (PEG) 17 Gm Powder PO PRN (06:04)
[2016-10-30 06:09] VITALS: BP 139/83; PULSE 84; RESP 17; O2SAT 93
[2016-10-30 06:37] LABS: BASOPHILS % (AUTO) 0 % (0-3); MONOCYTES % (AUTO) 1.5 % (4-12); Mean Corpuscular Hemoglobin 36.4 pg (27.0-35.0); Mean Corpuscular Volume 106.4 fL (81-100); NEUTROPHILS % (AUTO) 77.9 % (40-74); Platelet Count 92 bil/L (150-400)
[2016-10-30 08:54] VITALS: BP 155/79; PULSE 72; RESP 14; O2SAT 97
[2016-10-30] MEDS: Ascorbic Acid 500 mg Tablet PO SCH (09:00)
[2016-10-30] MEDS: Pantoprazole 20 mg ER24 Tablet PO SCH ×2 (09:00→16:32)
[2016-10-30] MEDS: MeTOProlol XL 25 mg ER24 Tablet PO SCH (09:00)
[2016-10-30] MEDS ORDERED: Sodium Biphos-Phos 133 mL Enema RECTAL ONE ×2 (10:45)
--- NOTE | 2016-10-30 13:10 | PROG NOTE ---
[address] [address] PROGRESS NOTE PATIENT: ENRIQUETA MORROW : 1955 MR#: [id number] ADMIT: 10/27/2016 JOB ID: [id number] DATE: 10/30/2016 The patient continues to tolerate clear liquids, feels less bloated, and is quite hopeful that she will be able to avoid a colostomy. She wants to have a discussion with Dr. Buchanan regarding prognosis and options prior to deciding on any procedure. Dr. Juarez continues to follow her and will give some consideration to colonic stenting if this is required. Dr. Ghosh will follow up for General Surgery starting tomorrow.
--- NOTE | 2016-10-30 13:22 | PROG NOTE ---
[address] [address] PROGRESS NOTE PATIENT: ENRIQUETA MORROW : 1955 MR#: [id number] ADMIT: 10/27/2016 JOB ID: [id number] DATE: 10/30/2016 SUBJECTIVE: The patient has decided that she does not wish to proceed with a diverting colostomy. She is still passing some flatus and feels slightly deflated in comparison to yesterday. She is tolerating liquid diet. OBJECTIVE: Vital signs are stable. Blood pressure 155/79, pulse 72, breathing 14, temperature 36.1, 97% on room air. No distress, up ambulatory within her room. Abdomen still appears slightly full. Bowel sounds are present. No significant tenderness during the exam. LABORATORY DATA: White count is up to 1.9 with 77.9% neutrophils. Platelets are sufficient at 92. Hemoglobin 10.2. ASSESSMENT AND PLAN: This is a 61-year-old female with high-grade obstruction involving the distal sigmoid. We anticipate a detailed prognostic discussion with Dr. Buchanan for tomorrow. If she wishes to avoid any intervention then it would perhaps be interesting to see how she responds to further enema therapy. I have given her two saline Fleet enemas this morning and hopefully this dislodges further stool and flatus and will see how she responds clinically. If there is a suboptimal response then perhaps we reconsider the viability of stenting, contingent on the results of her conversation with Dr. Buchanan.
[2016-10-30 14:15] VITALS: BP 148/76; PULSE 96; RESP 16; O2SAT 96
--- NOTE | 2016-10-30 16:32 | PCM.PNMED ---
Subjective Date of Service October 30, 2016 Subjective Patient was seen and examined at bedside today. Patient denies any chest pain, shortness of breath, nausea, vomiting, diarrhea. Overnight events: None Exam Vital Signs Vital Sign - Last Date Time Temp Pulse Resp B/P Pulse Ox O2 Delivery O2 Flow Rate FiO2 10/30/16 14:15 36.8 96 16 148/76 96 Room Air Intake and Output 10/29/16 10/29/16 10/30/16 Cumulative From/Thru 15:00 23:00 07:00 10/27/16 16:47 - 10/30/16 06:09 Intake Total 2103 ml 1262 ml 6366 ml Output Total 1600 ml 450 ml 3200 ml Balance 503 ml 812 ml 3166 ml Intake Oral 800 ml 200 ml 1200 ml IV Total 1303 ml 1062 ml 5166 ml Output Urine Total 1600 ml 450 ml 2700 ml Urine/Stool Mix 500 ml Exam Physical Exam: GEN: Patient was awake, alert, responding appropriately to questions HEENT: Pupils equal round and reactive to light, extraocular eye muscles intact , Neck soft supple, trachea midline, nomocephalic/atraumatic CV: +S1/S2, regular rate and rhythm, positive 2/6 systolic murmur auscultated Respiratory: CTAB, no wheezes, rales, rhonchi GI: +bowel sounds x4, soft, compressible, nontender to palpation EXT: no clubbing, cyanosis, edema Neuro: Cranial nerves II-XII grossly intact Psych: mood and affect were appropriate IVs and Medications Medications Reviewed: Medications were reviewed in detail Lab and Diagnostics Result Diagram: 10/30/16 0603 10/28/16 0615 X-Rays, CTs and MRIs PROCEDURE: CT ABDOMEN AND PELVIS WITH CONTRAST ([id number]) IMPRESSION: 1. Colonic distention proximal to a persistent area of enhancing wall thickening in the sigmoid colon suspect for neoplasm but inflammatory disease is not excluded. 2. Progressive metastatic disease from known uterine cancer with increased size and number of hepatic lesions. Splenic metastases as before. 3. Peritoneal implants and enhancing mass over the left vaginal cuff also suspect for metastatic deposits are reidentified and slightly more prominent. 4. Nonspecific areas of sclerosis in the left sacrum and ischium Major findings are concordant with the preliminary report Additional Diagnostics PROCEDURE: X-RAY ENEMA WITH GASTROGRAPHIN ([id number]) INDICATIONS: mechanical vs functional large bowel obstruction? COMPARISON: [facility], CT, CT ABD PELVIS W CON, 09/15/2016, 15:16. FINDINGS: KUB: Preprocedural geoduck diver film demonstrates moderate fecal loading. No suspicious abdominal calcifications. Visualized solid organ contours appear normal in size. No suspicious bony lesions. Colon: Gastrografin was instilled to the level of the mid sigmoid colon where no additional contrast medium was able to be instilled distal from this point. Stricture and/or mass is suspected. The attending physician was personally present in the room during the examination. IMPRESSION: Limited Gastrografin enema demonstrating opacification of the rectum and the small portion of the sigmoid at which point Gastrografin was unable to be further instilled. Stricture and/or mass is suspected. Endoscopy is recommended. 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 Large Bowel Obstruction due to metastatic cancer, POA -As demonstrated on CT abdomen and pelvis. due to metastatic disease. - Gastrografin enema as above - on clear liquid diets per surgery -Patient has decided not to do the colostomy at this time. General surgery has signed off and will be re-consulted if the patient decides later on that she would does want the colostomy. -2 Fleet enemas have been given as per recommendation by GI -Continue IV NS 100mls/hr -Symptomatic management with IV Zofran and Dilaudid Recurrent metastatic uterine cancer, POA -Currently on second line chemotherapy, as managed by Dr. Buchanan, Oncologist -Likely the cause of patient's macrocytic anemia and elevated transaminases Elevated transaminase level, unknown chronicity, POA -likely secondary to chemotherapy Macrocytic anemia, unknown chronicity, POA -likely secondary to chemotherapy Pancytopenia -Due to chemotherapy, Neupogen started by oncology -Patient is still neutropenic -Neutropenic precautions and started Essential hypertension, POA -Stable, continue patient's metoprolol when taking PO Hypothyroidism, POA -Stable, continue patient's levothyroxine when taking PO -TSH 2.95 on admission Tylenol when necessary for fever/pain - minimize use due to elevated transaminase levels Zofran when necessary for nausea Restoril when necessary for insomnia CODE STATUS: Full resuscitation, may benefit from palliative care consult Disposition: The patient at this time would like to try conservative management for decompression of her large bowel obstruction. At this time the patient will discuss with Dr. Buchanan tomorrow further about her prognosis and whether or not she wants to continue with any aggressive management. VTE Prophylaxis: Sub-Q Heparin (Unfractionated), SCDs VTE Mechanical Devices: Intermittant Pneumatic CD Resuscitation Status: CPR: Attempt Resuscitation Rita Bañuelos DO October 30, 2016 16:32
--- NOTE | 2016-10-30 17:47 | NUR ---
Enema two enemas given this morning with very little success. Pt. was only able to void light brown liquid. Pt. states bloating and abdominal pain are much better today and that she feels "like my usual self", despite not having a bowel movement today. Dr. Juarez notified of results. Diet advanced to full liquid.
[2016-10-30 20:30] VITALS: BP 144/80; PULSE 79; O2SAT 97
[2016-10-31] VITALS (8 sets, daily range): BP systolic 129–163; BP diastolic 65–88; PULSE 70–86; RESP 12–20; O2SAT 94–98
--- NOTE | 2016-10-31 04:26 | NUR ---
Shift Note Pt. c/o 10/26 abd. px. given prn morphine with effective results, Denies SOB, chest pain, N/V, vitals stable, hourly checks, call light in reach and all needs attended.
[2016-10-31] MEDS: 0.9% Sodium Chloride 1,000 ML IV SCH ×3 (05:44→20:07)
--- NOTE | 2016-10-31 07:24 | PCM.PNSURG ---
Subjective Visit Information: Reason for Visit Bowel Obstruction,Metastatic Cancer Surgery/Surgery Date Post-Op Day # Date of Admission: October 27, 2016 at 20:20 Hospital Day # Subjective: pt feels fine, tolerating clears, received 2 enemas with some liquid stool output, passing flatus Objective Objective Awake in bed Comfortable Abd: well healed prior midline incision, mild distention, nontender Vital Sign- Last 8 Hours Date Time Temp Pulse Resp B/P Pulse Ox O2 Delivery O2 Flow Rate FiO2 10/31/16 05:04 36.8 82 16 129/65 97 Room Air 10/31/16 00:30 36.7 77 16 133/69 97 Room Air Intake and Output- Last 8 Hour 10/31/16 Cumulative From/Thru 07:00 10/27/16 16:47 - 10/31/16 06:06 Intake Total 1422 ml 9638 ml Output Total 600 ml 5250 ml Balance 822 ml 4388 ml Intake Oral 240 ml 2580 ml IV Total 1182 ml 7058 ml Output Urine Total 600 ml 4750 ml Urine/Stool Mix 500 ml # Bowel Movements 0 0 Result Diagram: 10/30/16 0603 10/28/16 0615 Assessment & Plan Impression Sigmoid obstruction from metastatic uterine CA Problems: Plan Pt wants to avoid a colostomy if possible Pt will meet with Dr. Buchanan today for discussion of her options, which includes colonic stent vs. diverting colostomy. VTE Prophylaxis: Sub-Q Heparin (Unfractionated), SCDs Resuscitation Status: CPR: Attempt Resuscitation Kenyon Ghosh MD October 31, 2016 07:24
[2016-10-31 07:28] LABS: Mean Corpuscular Hemoglobin 36.6 pg (27.0-35.0); Mean Corpuscular Volume 106.1 fL (81-100)
[2016-10-31] MEDS: Pantoprazole 20 mg ER24 Tablet PO SCH ×2 (09:17→17:58)
[2016-10-31] MEDS: MeTOProlol XL 25 mg ER24 Tablet PO SCH (09:17)
[2016-10-31] MEDS: Ascorbic Acid 500 mg Tablet PO SCH (09:17)
[2016-10-31] MEDS: Polyethylene Glycol (PEG) 17 Gm Powder PO PRN (09:17)
[2016-10-31] MEDS ORDERED: Sodium Biphos-Phos 133 mL Enema RECTAL STA (13:59)
--- NOTE | 2016-10-31 15:44 | NUR ---
Transfer to endoscopy Pt transferred to Endoscopy around 1430 today for exploratory procedure. Pt. did eat full liquid breakfast and lunch and is comfortable undergoing the procedure without sedation. Saline locked. Pre medicated with IV morphine.
--- NOTE | 2016-10-31 16:07 | NUR ---
NUTRITION FOLLOW UP: ASSESS: 61YO F admit with large bowel obstruction due to metastatic disease, pt to endoscopy for exploratory procedure; pt desiring conservative management of bowel obstruction, possible colonic stent v. diverting colostomy. PMHX: Uterine cancer with mets to liver/spleen on chemo therapy, hypothyroidism,anemia DIET: Full Liquid. RN notes indicate full liquid diet well tolerated LABS: Alb 3.0, K+3.2 MEDS: Reviewed GI: S/P enema with liquid stool SKIN: Jordy 21 WEIGHT:62.9, BMI 24.6 Admit: 60.4kg EST.NEEDS: CANCER Kcal: [id number] Pro: 60-90g NUTRITION DIAGNOSIS: (1) Inadequate oral intake related to possible bowel obstruction/abdominal pain/n/v as evidenced by Clear liquid diet status--IMPROVING. INTERVENTION: (1) Will include supplements (Ensure) on all meal trays. MONITOR/EVALUATE: GI status/POC, diet advancement/tolerance labs. F/U per high risk.
--- NOTE | 2016-10-31 18:06 | PCM.PNMED ---
Subjective Date of Service October 31, 2016 Subjective Patient seen and examined. Patient has no complaints except for nagging abdominal fullness. Patient otherwise went for endoscopy and a scope was not able to pass the level of obstruction, it was this point the patient decided the best thing would be to get a colostomy. Exam Vital Signs Vital Sign - Last Date Time Temp Pulse Resp B/P Pulse Ox O2 Delivery O2 Flow Rate FiO2 10/31/16 17:15 37.0 71 20 162/82 95 Room Air Intake and Output 10/30/16 10/30/16 10/31/16 Cumulative From/Thru 15:00 23:00 07:00 10/27/16 16:47 - 10/31/16 06:06 Intake Total 1850 ml 1422 ml 9638 ml Output Total 1450 ml 600 ml 5250 ml Balance 400 ml 822 ml 4388 ml Intake Oral 1140 ml 240 ml 2580 ml IV Total 710 ml 1182 ml 7058 ml Output Urine Total 1450 ml 600 ml 4750 ml Urine/Stool Mix 500 ml # Bowel Movements 0 0 Exam GEN: Patient was awake, alert, responding appropriately to questions HEENT: Pupils equal round and reactive to light, extraocular eye muscles intact , Neck soft supple, trachea midline, nomocephalic/atraumatic CV: +S1/S2, regular rate and rhythm, positive 2/6 systolic murmur auscultated Respiratory: CTAB, no wheezes, rales, rhonchi GI: +bowel sounds x4, soft, compressible, nontender to palpation EXT: no clubbing, cyanosis, edema Neuro: Cranial nerves II-XII grossly intact Psych: mood and affect were appropriate Lab and Diagnostics Result Diagram: 10/31/16 0710 10/31/16 0710 X-Rays, CTs and MRIs PROCEDURE: CT ABDOMEN AND PELVIS WITH CONTRAST ([id number]) IMPRESSION: 1. Colonic distention proximal to a persistent area of enhancing wall thickening in the sigmoid colon suspect for neoplasm but inflammatory disease is not excluded. 2. Progressive metastatic disease from known uterine cancer with increased size and number of hepatic lesions. Splenic metastases as before. 3. Peritoneal implants and enhancing mass over the left vaginal cuff also suspect for metastatic deposits are reidentified and slightly more prominent. 4. Nonspecific areas of sclerosis in the left sacrum and ischium Major findings are concordant with the preliminary report Additional Diagnostics PROCEDURE: X-RAY ENEMA WITH GASTROGRAPHIN ([id number]) INDICATIONS: mechanical vs functional large bowel obstruction? COMPARISON: [facility], CT, CT ABD PELVIS W CON, 09/15/2016, 15:16. FINDINGS: KUB: Preprocedural animal ride manager film demonstrates moderate fecal loading. No suspicious abdominal calcifications. Visualized solid organ contours appear normal in size. No suspicious bony lesions. Colon: Gastrografin was instilled to the level of the mid sigmoid colon where no additional contrast medium was able to be instilled distal from this point. Stricture and/or mass is suspected. The attending physician was personally present in the room during the examination. IMPRESSION: Limited Gastrografin enema demonstrating opacification of the rectum and the small portion of the sigmoid at which point Gastrografin was unable to be further instilled. Stricture and/or mass is suspected. Endoscopy is recommended. 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 Large Bowel Obstruction due to metastatic cancer, POA -As demonstrated on CT abdomen and pelvis. due to metastatic disease. - Gastrografin enema revealed a significant obstruction which was confirmed by endoscopy today - on clear liquid diets per surgery -Pt wishes to have a colostomy at this time -Continue IV NS 100mls/hr -Symptomatic management with IV Zofran and Dilaudid Recurrent metastatic uterine cancer, POA -Currently on second line chemotherapy, as managed by Dr. Buchanan, Oncologist -macrocytosis and transaminitis are secondary to oncological process and treatment Pancytopenia -Due to chemotherapy, Neupogen started by oncology -Patient is still neutropenic -Neutropenic precautions and started Essential hypertension, POA -Stable, continue patient's metoprolol when taking PO Hypothyroidism, POA -Stable, continue patient's levothyroxine when taking PO -TSH 2.95 on admission Tylenol when necessary for fever/pain - minimize use due to elevated transaminase levels Zofran when necessary for nausea Restoril when necessary for insomnia CODE STATUS: Full resuscitation, may benefit from palliative care consult Disposition: Patient wishes for a colostomy and to be discharged as soon as feasible. . VTE Prophylaxis: Sub-Q Heparin (Unfractionated), SCDs VTE Mechanical Devices: Venous Foot Pump Resuscitation Status: CPR: Attempt Resuscitation Shimon Jefferson MD October 31, 2016 18:06
--- NOTE | 2016-10-31 20:39 | PROG NOTE ---
[address] [address] PROGRESS NOTE PATIENT: ENRIQUETA MORROW : 1955 MR#: [id number] ADMIT: 10/27/2016 JOB ID: [id number] DATE: 10/31/2016 SUBJECTIVE: The patient is a very pleasant 61-year-old female with an underlying diagnosis of progressive metastatic uterine carcinosarcoma, recently completing cycle one of second-line chemotherapy with gemcitabine, dacarbazine on October 24, 2016. The patient was last seen in our clinic on October 26, 2016, at which time she was noticing an increased sense of constipation for two days with some abdominal discomfort but no associated bloating, and she was passing gas. The patient's most recent imaging study was a CT scan of the chest, abdomen and pelvis on September 15, 2016, a reflection of approximately one year of front-line chemotherapy with Doxil, carboplatin. This confirmed a new 7 mm, low-density focus in the right hepatic lobe. In addition, in the medial left hepatic lobe an increasing nodule up to 17 mm was reported. The remainder of the liver lesions, splenic mets, peritoneal nodularity, and sigmoid colon thickening as well as enhancing focus along the left aspect of the vaginal cuff were reported as stable. The patient had tolerated her second-line chemotherapy with anticipated fatigue and cytopenias but unfortunately presented to the emergency department due to progressive abdominal discomfort, persistent constipation, as well as vomiting that morning. Upon admission, the patient had a CT scan of the abdomen and pelvis, dated October 26, 2016. This reported air and moderate stool throughout the nondistended colon proximal to an area of pre-existing sigmoid wall thickening which enhances and is suspect for malignant infiltration and partial obstruction. Unfortunately, other areas of measurable disease were also showing signs of disease progression, particularly in the liver, peritoneal and left vaginal cuff regions. Target lesion in the left hepatic lobe measuring 1.7 cm on September 15, 2016, currently measuring 2.8 cm. The patient has subsequently been admitted and been evaluated by both Surgery as well as GI. In fact, earlier today, an attempt for sigmoidoscopy was made but subsequently abandoned due to poor visibility. Clinically, the patient reports improvement, specifically stating that now she is passing gas and she is able to eat clear liquid diet. Her pain is well managed and she has reports a pain scale of zero at this time. Unfortunately, she has not yet had a bowel movement and her abdomen remains distended. PAST MEDICAL HISTORY: Significant for: 1. Recurrent uterine carcinosarcoma initially identified on a PET-CT scan dated September 18, 2015. The patient responded to first-line chemotherapy with Doxil, carboplatin for over one year but unfortunately had disease progression as confirmed on CT scan of the chest, abdomen and pelvis dated September 15, 2016, with new lesions seen in the right hepatic lobe measuring 7 mm and an increasing left hepatic lobe lesion measuring 17 mm. The remainder of the measurable disease in the liver, spleen, peritoneum, and sigmoid colonic thickening was reported as stable. The patient completed her first cycle of second-line therapy on October 24, 2016, with a regimen of dacarbazine and gemcitabine. The patient's clinical presentation has been complicated by documented obstruction at the sigmoid colon based on a CT scan of the abdomen and pelvis, dated October 26, 2016. 2. Hypertension. 3. Hypothyroidism. PHYSICAL EXAMINATION: Vital signs today reporting a weight of 62.9 kg, which is up approximately 6 kg from her admission weight of 56.8 kg. Blood pressure was 162/82, temperature is 37, pulse is 71, respiratory rate is 20 and she is saturating at 95% on room air. She is A and O x3, in good spirits overall. Affect is appropriate. Lying in bed comfortably. Abdomen was distended and hypertympanic throughout. LABORATORY DATA: From October 31, 2016, showing a white blood cell count of 2.9, hemoglobin 9.6, and a platelet count of 68. Sodium 140, potassium 3.2. Serum creatinine 0.46. Calcium 8.2. AST 40, ALT 60, alk phos 103. ASSESSMENT/PLAN: The patient is a very pleasant, 61-year-old female with an underlying diagnosis of recurrent uterine carcinosarcoma responding well to front-line therapy for over a year. Unfortunately, over the past month showing disease progression and subsequently switched over to second-line therapy, which she received on October 24, 2016. The patient presents acutely 48 hours later with high-grade obstruction with a transition point at the sigmoid colon. Clinically, patient has shown some mild improvement since her admission with resolution of her vomiting, advancement to a clear liquid diet and passing gas. However, her exam continues to show abdominal distention and she has had no BM since admission. The patient is requesting a conservative approach with surgical intervention only if clear indications are present. I reviewed with the patient that even if she does see some improvement with her chemotherapy from one week ago, that likely she will be faced with a similar situation when her disease progresses or fails to respond to her current regimen. The patient understands that if she shows no further improvement over the next 24-48 hours or if her symptoms worsen, that surgery is her only option, which she is agreeable to at this time. The only recommendations for the patient at this time is to continue to watch her on a clinical basis with surgical intervention as indicated. I will continue to follow the patient during her stay, but if there are any questions, please do not hesitate to call me at [phone].
[2016-11-01] VITALS (8 sets, daily range): BP systolic 115–161; BP diastolic 72–90; PULSE 58–80; RESP 16–20; O2SAT 93–97
--- NOTE | 2016-11-01 00:03 | ENDO ---
[address] [address] ENDOSCOPY PROCEDURE PATIENT: ENRIQUETA MORROW : 1955 MR#: [id number] ADMIT: 10/27/2016 JOB ID: [id number] DATE OF PROCEDURE: 10/31/2016 PROCEDURE: Limited flexible sigmoidoscopy. 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 Endoscopic evaluation is pursued to in essence determine the feasibility of stent placement. EQUIPMENT: 1. GIF-H180J. 2. PCF-H180AL. SEDATION: None. COMPLICATIONS: None identified. BOWEL PREPARATION: Excellent distally. No retained stool debris at all. PROCEDURE INFORMATION: After the risks and benefits were explained, written and verbal informed consent was obtained. The patient was brought into the endoscopy suite and placed into the left lateral decubitus position. Sedation was achieved as above. A digital rectal examination was accomplished. No significant pathology was appreciated. Mild internal hemorrhoids. I could not palpate any masses. The upper endoscope was advanced into the rectum and advanced to about 20 cm from the anal verge. We encountered an extremely tortuous and the stenotic area that appeared to be for the most part choked off from outside the bowel lumen. There was some mucosal irregularity that I could see consistent with transmural extension of the malignant process. I could not get the upper endoscope to advance deep into this stenosis to get a sense as to how far it went and whether it would be amenable to wire passage, etc. We attempted patient position changes and application of pressure, and I could not get the scope to navigate any further. We swapped this out for a pediatric colonoscope and we were even less successful at even approaching the start of the stenotic region at around 20 cm. I did not get great visualization of it with the pediatric colonoscope. We spent a considerable amount of time making the effort here which ultimately proved unsuccessful. The pediatric colonoscope was ultimately withdrawn. Excess CO2 and liquid were removed from the distal bowel. The scope was then withdrawn from the patient who tolerated the procedure well. FINDINGS: As described above, we could not navigate through a constricted and stenosed area at around 20 cm from the anal verge. It was extremely difficulty to even get the diagnostic upper endoscopy scope to arise at the start of this stenosis. This did not appear amenable to stent placement secondary to the degree of difficulty here. As mentioned above, the pediatric colonoscope was even less successful and we would need to have a 10-K[place] working channel in order to be successful here. The procedure was; therefore, terminated as above. ENDOSCOPIC DIAGNOSIS: High-grade seemingly complete obstruction in the sigmoid. RECOMMENDATIONS: Based on the extremely difficult location with which to even approach with therapeutic endoscope, palliative stenting does not appear to be an option at present time. I would recommend continued liquid diet and consideration of palliative diversion colostomy at the discretion of both the patient and her surgical team.
--- NOTE | 2016-11-01 05:04 | NUR ---
pain/Activity pt C/O 4-10/26 abdominal pain. Administered PRN IVP 2mg Morphine. pt respond pain relief by resting quietly in bed and didn't voice pain afterward. pt ambulated multiple times to the rest room independently. gait steady. Denies nausea and vomiting. will continue to monitor.
[2016-11-01] MEDS: 0.9% Sodium Chloride 1,000 ML IV SCH ×2 (06:24→11:00)
[2016-11-01 07:14] LABS: BASOPHILS % (AUTO) 0.3 % (0-3); MONOCYTES % (AUTO) 7.6 % (4-12); Mean Corpuscular Hemoglobin 36.1 pg (27.0-35.0); Mean Corpuscular Volume 105.1 fL (81-100); Platelet Count 65 bil/L (150-400)
[2016-11-01] MEDS: Ascorbic Acid 500 mg Tablet PO SCH (08:51)
[2016-11-01] MEDS: Pantoprazole 20 mg ER24 Tablet PO SCH ×2 (08:51→17:30)
[2016-11-01] MEDS: MeTOProlol XL 25 mg ER24 Tablet PO SCH (08:51)
--- NOTE | 2016-11-01 09:16 | PCM.PNMED ---
Subjective Date of Service November 01, 2016 Subjective Follow up for sigmoid obstruction, metastatic endometrail cancer and pancytopenia. Patient underwent colonoscopy yesterday. Procedure was aborted due to severe obstruction and impossibility to pass scope Afebrile. No chills . No abdominal pain, no nausea, no vomiting Exam Vital Signs Vital Sign - Last Date Time Temp Pulse Resp B/P Pulse Ox O2 Delivery O2 Flow Rate FiO2 11/01/16 06:13 36.9 79 18 161/87 95 Room Air Intake and Output 10/31/16 10/31/16 11/01/16 Cumulative From/Thru 15:00 23:00 07:00 10/27/16 16:47 - 11/01/16 06:29 Intake Total 3058 ml 1298 ml 67040 ml Output Total 750 ml 1025 ml 7025 ml Balance 2308 ml 273 ml 6969 ml Intake Oral 1200 ml 100 ml 3880 ml IV Total 1858 ml 1198 ml 61745 ml Output Urine Total 750 ml 1025 ml 6525 ml Urine/Stool Mix 500 ml # Bowel Movements 0 0 Exam GEN: In bed comfortably. NAD , very pleasant HEENT: LOLI. Sclerae is anicteric Neck : Supple. No JVD, no lymphadenopathy Chest : Normal respiratory effort Lung : CLear bilaterally. No wheezing , no crackles Heart : +S1/S2, regular rate and rhythm, positive 2/6 systolic murmur auscultated Abdomen : Distended , non tender. +bowel sounds x4 EXT: no clubbing, cyanosis, edema Neuro: Cranial nerves II-XII grossly intact Psych: mood and affect were appropriate IVs and Medications Medications Reviewed: Medications were reviewed in detail Lab and Diagnostics Result Diagram: 11/01/16 0633 10/31/16 0710 X-Rays, CTs and MRIs PROCEDURE: CT ABDOMEN AND PELVIS WITH CONTRAST ([id number]) IMPRESSION: 1. Colonic distention proximal to a persistent area of enhancing wall thickening in the sigmoid colon suspect for neoplasm but inflammatory disease is not excluded. 2. Progressive metastatic disease from known uterine cancer with increased size and number of hepatic lesions. Splenic metastases as before. 3. Peritoneal implants and enhancing mass over the left vaginal cuff also suspect for metastatic deposits are reidentified and slightly more prominent. 4. Nonspecific areas of sclerosis in the left sacrum and ischium Major findings are concordant with the preliminary report Additional Diagnostics PROCEDURE: X-RAY ENEMA WITH GASTROGRAPHIN ([id number]) INDICATIONS: mechanical vs functional large bowel obstruction? COMPARISON: [facility], CT, CT ABD PELVIS W CON, 09/15/2016, 15:16. FINDINGS: KUB: Preprocedural serging machine operator automatic film demonstrates moderate fecal loading. No suspicious abdominal calcifications. Visualized solid organ contours appear normal in size. No suspicious bony lesions. Colon: Gastrografin was instilled to the level of the mid sigmoid colon where no additional contrast medium was able to be instilled distal from this point. Stricture and/or mass is suspected. The attending physician was personally present in the room during the examination. IMPRESSION: Limited Gastrografin enema demonstrating opacification of the rectum and the small portion of the sigmoid at which point Gastrografin was unable to be further instilled. Stricture and/or mass is suspected. Endoscopy is recommended. 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 1. Large Bowel Obstruction? Sigmoid Obstruction : Due to metastatic cancer, POA Colonoscopy: not possible to pass scope including attempt to pass a pediatric scope. Surgery consulted for palliative colostomy . - Continue clear liquid diet -Continue IV NS 100mls/hr to maintain adequate hydration -Symptomatic management with IV Zofran and Dilaudid 2. Recurrent metastatic uterine cancer, POA -Currently on second line chemotherapy, as managed by Dr. Buchanan, Oncologist -macrocytosis and transaminitis are secondary to oncological process and treatment 3. Pancytopenia due to chemotherapy. On Neupogen Oncology following -Neutropenic precautions . Patient not febrile 4. Essential hypertension, POA -Stable, continue patient's metoprolol when taking PO 5. Hypothyroidism, POA On levothyroxine supplement -TSH 2.95 on admission Clinically stable. Discharge home once colostomy is done. Patient to follow up as outpatient with oncology. long term care pharmacist prognosis is poor VTE Prophylaxis: Sub-Q Heparin (Unfractionated), SCDs VTE Mechanical Devices: Intermittant Pneumatic CD Resuscitation Status: CPR: Attempt Resuscitation Time spent 25 minutes Logan Springer MD November 01, 2016 09:16
--- NOTE | 2016-11-01 11:17 | NUR ---
Social Work-continued d/c planning: Data:EMR Reviewed. Pt is on day 5 of hospitalization for bowel obstruction per H&P. Pt is not medically stable anticipate several more days. SW met with pt at bedside to discuss discharge planning, SW role explained. Pt resides at home with her . Pt confirms that she is going to be going to surgery and will be having a colostomy. SW explained that SW will follow up post colostomy to determine any HH or out patient wound care needs. Pt's oncologist is Dr. Buchanan. Pt's to provide transport home at discharge. SW provided phone number and plan on white board in room. SW will continue to follow. Assessment:pt who is independent at baseline. Plan:Pt to discharge home when medically stable via POV. SW to follow for needs post colostomy surgery. SW will continue to follow. CASSANDRA Griffiths
--- NOTE | 2016-11-01 13:15 | NUR ---
Pain Called to room as patient pulled BR light. Pt diaphoretic, pale having abd spasms feeling lightheaded. BP 95/60. Placed back into bed with 2 assist Bp 115/72. pt reports feeling better. Enc to ask for assist, like she did, if she feels like this again. Continue to monitor.
[2016-11-01] MEDS: Ondansetron 2 mg/mL 2 mL Inj IVPUSH PRN ×2 (14:20→21:56)
--- NOTE | 2016-11-01 15:19 | PROG NOTE ---
[address] [address] PROGRESS NOTE PATIENT: ENRIQUETA MORROW : 1955 MR#: [id number] ADMIT: 10/27/2016 JOB ID: [id number] DATE: 11/01/2016 SUBJECTIVE: The patient was seen in followup. She has been having ongoing cramping abdominal pain which waxes and wanes. She has not had nausea or vomiting. She is not passing any flatus or bowel movement today. OBJECTIVE: Temperature 36.9, pulse 73, blood pressure 159/90, saturation 95% on room air. General: She is resting in bed in no acute distress. Chest is clear. Heart: Regular rate and rhythm. No murmurs. Abdomen is distended, tympanitic, but soft. She has a midline laparotomy scar and there are no hernias. LABORATORIES: White blood cell count is 2.9, hematocrit 29.1, platelets 65, creatinine 0.51. ASSESSMENT AND PLAN: A 61-year-old woman with a distal colon obstruction from peritoneal involvement with uterine carcinosarcoma. Placement of a colonic stent was unsuccessful. I recommend proceeding with decompressing loop colostomy. The plan would be to do this operation laparoscopically, although she understands that it might have to be open. The plan will be to use the sigmoid colon if it was relatively free of disease and mobile, and if not to use the transverse colon, and if neither of those sites were usable, to do a loop ileostomy. The ileostomy might be problematic because it looks like her ileocecal valve is competent, meaning that all the gaseous distention is in her colon. Technical aspects of surgery were discussed. Risks were discussed, including, but not limited to, bleeding, infection, conversion to open surgery. She understands that this would be a permanent colostomy. We will tentatively plan to proceed with surgery tomorrow. She understands that her low platelets are slightly problematic. As long as the platelet count is stable, I think we should proceed tomorrow, but if the platelet count is dramatically lower, surgery would need to be deferred.
--- NOTE | 2016-11-01 18:26 | NUR ---
Wound/Ostomy Care Patient seen at bedside for education and preoperative marking for elective colostomy surgery in AM will follow this patient during hospitalization at Dr Zambrano request.
--- NOTE | 2016-11-01 19:38 | NUR ---
nausea/pain 1 time of nausea resolved by zofran. pain managed by morphine every 4-5 hours. has spasms of pain up to 7/10. wound care came and marked site for upcoming surgery. No furthur hypotension noted.
[2016-11-02] VITALS (16 sets, daily range): BP systolic 117–185; BP diastolic 60–95; PULSE 68–94; RESP 13–18; O2SAT 90–100
[2016-11-02] MEDS: 0.9% Sodium Chloride 1,000 ML IV SCH ×3 (02:12→21:05)
--- NOTE | 2016-11-02 04:14 | NUR ---
pain/Nausea c/o 6-01/26 cramping abdominal pain. administered PRN IVP Morphine. pt respond by resting in bed with eyes closed, and didn't voice pain afterward. Pt has nausea episode x1. administered 4mg IVP zofran which was effective. Denies dizziness or lightheadedness during this shift. will continue to monitor.
[2016-11-02] MEDS ORDERED: Cefotetan Inj 2,000 MG in IV Premix 1 EACH IV ONE (06:00)
[2016-11-02] MEDS ORDERED: DEXTROSE 5% IV ONE (06:00)
[2016-11-02] MEDS ORDERED: CEFOTETAN IV ONE (06:00)
--- NOTE | 2016-11-02 06:49 | PCM.PNMED ---
Subjective Date of Service November 02, 2016 Subjective planning for colostomy sx today pending labs, overnight had some nausea/pain improved with medication. No reports of sob/cp Exam Vital Signs Vital Sign - Last Date Time Temp Pulse Resp B/P Pulse Ox O2 Delivery O2 Flow Rate FiO2 11/02/16 02:36 36.9 73 18 141/60 92 Room Air Intake and Output 11/01/16 11/01/16 11/02/16 Cumulative From/Thru 15:00 23:00 07:00 10/27/16 16:47 - 11/01/16 17:00 Intake Total 1254 ml 94328 ml Output Total 450 ml 7475 ml Balance 804 ml 7773 ml Intake Oral 200 ml 4080 ml IV Total 1054 ml 03006 ml Output Urine Total 450 ml 6975 ml Urine/Stool Mix 500 ml # Voids 2 2 # Bowel Movements 0 0 Exam GEN: NAD , pleasant HEENT: LOLI. Sclerae is anicteric Neck : Supple. No JVD, no lymphadenopathy Chest : Normal respiratory effort Lung : CLear bilaterally. No wheezing , no crackles Heart : +S1/S2, regular rate and rhythm, positive 2/6 systolic murmur auscultated Abdomen : Distended , non tender. +bowel sounds EXT: no clubbing, cyanosis, edema Neuro: Cranial nerves II-XII grossly intact Psych: mood and affect were appropriate IVs and Medications Medications Reviewed: Medications were reviewed in detail Lab and Diagnostics Result Diagram: 11/01/1663211/01/16 06 X-Rays, CTs and MRIs PROCEDURE: CT ABDOMEN AND PELVIS WITH CONTRAST ([id number]) IMPRESSION: 1. Colonic distention proximal to a persistent area of enhancing wall thickening in the sigmoid colon suspect for neoplasm but inflammatory disease is not excluded. 2. Progressive metastatic disease from known uterine cancer with increased size and number of hepatic lesions. Splenic metastases as before. 3. Peritoneal implants and enhancing mass over the left vaginal cuff also suspect for metastatic deposits are reidentified and slightly more prominent. 4. Nonspecific areas of sclerosis in the left sacrum and ischium Major findings are concordant with the preliminary report Additional Diagnostics PROCEDURE: X-RAY ENEMA WITH GASTROGRAPHIN ([id number]) INDICATIONS: mechanical vs functional large bowel obstruction? COMPARISON: [facility], CT, CT ABD PELVIS W CON, 09/15/2016, 15:16. FINDINGS: KUB: Preprocedural cylinder sander operator film demonstrates moderate fecal loading. No suspicious abdominal calcifications. Visualized solid organ contours appear normal in size. No suspicious bony lesions. Colon: Gastrografin was instilled to the level of the mid sigmoid colon where no additional contrast medium was able to be instilled distal from this point. Stricture and/or mass is suspected. The attending physician was personally present in the room during the examination. IMPRESSION: Limited Gastrografin enema demonstrating opacification of the rectum and the small portion of the sigmoid at which point Gastrografin was unable to be further instilled. Stricture and/or mass is suspected. Endoscopy is recommended. 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 1. Large Bowel Obstruction? Sigmoid Obstruction : Due to metastatic cancer, POA Colonoscopy: not possible to pass scope including attempt to pass a pediatric scope. Surgery consulted for palliative colostomy - tentative sx planned if platelet levels are stable - NPO now -Continue IV NS 100mls/hr to maintain adequate hydration -Symptomatic management with IV Zofran and Dilaudid 2. Recurrent metastatic uterine cancer, POA -Currently on second line chemotherapy, as managed by Dr. Buchanan, Oncologist -macrocytosis and transaminitis are secondary to oncological process and treatment 3. Pancytopenia due to chemotherapy. On Neupogen Oncology following -Neutropenic precautions . Patient not febrile 4. Essential hypertension, POA -Stable, continue patient's metoprolol when taking PO 5. Hypothyroidism, POA On levothyroxine supplement -TSH 2.95 on admission Clinically stable. Discharge home pending clinical stability post sx Patient to follow up as outpatient with oncology. [facility] prognosis is poor Pain Evaluation: Adequate Pain Control GI Prophylaxis: Proton Pump Inhibitor VTE Prophylaxis: Sub-Q Heparin (Unfractionated), SCDs VTE Mechanical Devices: Intermittant Pneumatic CD Resuscitation Status: CPR: Attempt Resuscitation Time spent 30 minutes spent with pt care/management Logan Matos DO November 02, 2016 06:49
--- NOTE | 2016-11-02 07:29 | PCM.HPANE ---
Patient Data Date of Service: November 02, 2016 Surgeon Admitting Provider:Chantell Saxena DO Attending Provider:Chantell Saxena DO Primary Care Physician:Mellisa Dhillon Other Provider: Reason for Visit Bowel Obstruction,Metastatic Cancer Ht/WT & BMI Height (Feet): 5 Height (Inches): 3.00 Weight (Kilograms): 65.600 Body Mass Index 24.00 Allergies Coded Allergies: magnesium sulfate (Verified Allergy, Severe, VOMITING, 09/13/16) potassium (Verified Allergy, Severe, VOMITING, 09/13/16) Past Anesthesia History Anesthesia History: Denies:: Abnormal Airway, Anesthesia Reactions, Difficult Intubation, Fam Anesthesia Reaction, Fam Malignant Hypertherm, Malignant Hyperthermia Diabetes History Hx Diabetes?: No MRSA MRSA: No Medications Blood Thinner: Aspirin Last Dose Blood Thinner: October 31, 2016 Date Beta Bob Taken: October 31, 2016 Time Beta Bob Taken: 919 Previous Beta Bob Dose >24: Give Dose Perioperatively Active Scripts Pantoprazole DR 20 Mg Tablet.dr20 Mg PO BID #60 TAB Prov:Mel Prater DO 09/14/16 Reported Medications Acetaminophen 325 Mg [id number] Mg PO Q4H PRN For Pain Ref 0 10/27/16 Ascorbic Acid (Vitamin C)250 Mg Tab.chew1,000 Mg PO QAM 30 Days Ref 0 10/27/16 Pyridoxine (Vitamin B-6)50 Mg Qmeiwl266 Mg PO QAM 10/02/15 Aspirin 81 Mg Kilixx69 Mg PO QAM Ref 0 10/02/15 Cholecalciferol (Vitamin D3) (Vitamin D)1,000 Unit Tablet2,000 Unit PO QAM Ref 0 09/23/15 Metoprolol Succinate ER 25 Mg Tab.er.24h25 Mg PO QAM 30 Days Ref 0 08/21/14 Levothyroxine (Levoxyl)112 Mcg Uxqnha172 Mcg PO QAM 30 Days Ref 0 08/21/14 Discontinued Reported Medications Olanzapine 5 Mg Ufjpeb14 Mg PO D1-4 Ref 0 10/26/16 Omeprazole 20 Mg Tablet.dr20 Mg PO DAILY 10/17/16 [Vitamin C Gummy Chew] No Conflict Check1,000 Mg PO DAILY 10/07/15 Discontinued Scripts Lactulose 20 Gm/30 Ml Ojjqjpvj07 Gm PO TID #480 ML Prov:Elfego Martin MD 10/27/16 History History of ENT Problems?: Yes HEENT History: Positive for:: Cataracts (2015 surgery) Denies:: Abnormal Airway Difficult Intubation Dysphagia Glaucoma Hearing Problem Sinus Problem Denture Type: None Teeth Condition: Within Normal Limits Hx of Heart Problems?: Yes Cardiovascular History: Positive for:: Cardiac Surgery (HEART CATH 02/2012 ( NEG)) Chest Pain (2011 "stress related") Heart Murmur Hypertension (metoprolol) Thrombophlebitis (DVT LEGS AFTER DELIVERY 1973) Valvular Heart Disease (MILD AORTIC REGURG ) Denies:: AICD Atrial Fibrillation Congestive Heart Failure Edema Irregular Heartbeat Pacemaker Hx of Respiratory Problem?: No Respiratory History: Denies:: Asthma COPD Chest Surgery Cough Dyspnea Emphysema Hemoptysis Pneumonia Tuberculosis Use of C-PAP Machine Hx Neurologic Problems?: No Neurological History: Positive for:: Dizziness (vertigo 2015) Denies:: Alzheimer's Disease CVA Dementia Parkinson's Disease Seizures Hx of GI Problems?: Yes Hx of Problems?: Yes Genitourinary History: Positive for:: Urinary Tract Infection ("long time ago ") Denies:: HX of Hemodialysis Kidney Stones HX of Peritoneal Dialysis: No Female Hx: Denies:: Currently Endometriosis Pelvic Inflammatory Problems with Breasts? Skin History: Denies:: History Skin Disorders? Pressure Ulcers Hx Musculoskeletal Problems?: No Musculoskeletal History: Positive for:: Musculoskeletal Trauma Denies:: Back Injury Fibromyalgia Joint Replacement Hx of Psycho/Social Problems?: No Psycho Social History: Denies:: Anxiety Bipolar Disorder Hx Depression Suicide Attempt Hx Surgeries?: Yes (appendectomy, hysterectomy, fibroids removed ) Hx Any Other Health Problems?: Yes Other History: Positive for:: Cancer (Ovarian) Hospitalization (07/2016) Thyroid Disease (removal 1993) Denies:: Endocrine Disease History Blood Transfusions: Positive for:: Accept Blood Products? Denies:: Blood Transfuse Reaction Blood Transfusions Hx Diabetes: No Hx Alcohol Use: NoHx Substance Use: No Smoking Status: Never Smoker Have You Smoked inLast 12 mo: No Stop/Bang Treated for Sleep Apnea?: No Do You Have a CPAP Machine?: No S-Snoring: Do You Snore Loudly: No T-Tired: feel tired, fatigued: No O-Obsered: Observed not breath: No P-Blood Pressure: treated: Yes B- Body Mass Index > 35 kg/m2: No A- Age over 50: Yes N- Neck Large Circumference: No G- Gender Male: No HAYDE Total Score: 2 HAYDE Risk Assessment: Low Risk, <3 Yes Risk Assessment Category Category 1A: Patient has history of documented sleep apnea, and HAS NOT received any narcotic, sedative or anesthesia administration during this stay. Category 1B: Patient has history of documented sleep apnea, and HAS received any narcotic , sedative or anesthesia administration during this stay Category 2: Patient has SUSPECTED Obstructive Sleep Apnea, and HAS received any narcotic , sedative or anesthesia administration during this stay. Category 3: Patient has SUSPECTED Obstructive Sleep Apnea and HAS NOT received narcotic, sedative or anesthesia administration during this stay. Category 4: Outpatient in Procedural Areas with known sleep apnea or who screen positive for High Risk via the STOP/BANG questionnaire. Exam Exam Vital Signs Vital Signs Date Time Temp Pulse Resp B/P Pulse Ox O2 Delivery O2 Flow Rate FiO2 11/02/16 06:48 36.8 79 18 159/78 92 Room Air 11/02/16 02:36 36.9 73 18 141/60 92 Room Air General Appearance: Alert, Oriented X3, Cooperative HEENT/AIRWAY: MP 2 Lungs: Normal Air Movement Heart: Exam Unremarkable Meds/Labs/Diagnostics Admission Meds Current Medications Cefotetan Disodium/Dextrose/ Premix (Cefotan Inj/IV Premix) 50 ml @ 50 mls/hr PREOP ONCE IV Last administered on 11/02/16t 06:23; Start 11/02/16 at 06:00; Stop 11/02/16 at 06:59; Status DC Labs Test 10/27/16 18:18 10/27/16 18:21 10/27/16 22:29 10/31/16 07:10 Magnesium Level 2.0mg/dL (1.6-2.6) Lipase 54U/L (13-60) Thyroid Stimulating Hormone (TSH) 2.950uIU/mL (0.450-4.500) Prothrombin Time 9.4sec (8.1-12.5) Prothromb Time International Ratio 0.88ratio Hold Sweeney Top Tube Received (Received) Urine Color Maryam (YELLOW) Urine Appearance Hazy (CLEAR,HAZY) Urine pH 5.5 (5.0-8.0) Urine Specific [place] 1.036 (1.003-1.035) Urine Protein 100mg/dL (NEG,TRACE) Urine Glucose (UA) Negativemg/dL (NEGATIVE) Urine Ketones 40mg/dL (NEGATIVE) Urine Occult Blood Moderate (NEGATIVE) Urine Nitrite Negative (NEGATIVE) Urine Bilirubin Negative (NEGATIVE) Urine Ictotest Negative (Negative) Urine Urobilinogen 1.0mg/dL (NORMAL) Urine Leukocyte Esterase Negative (NEGATIVE) Urine RBC 11-50/hpf (0-2) Urine WBC 6-10/hpf (0-5) Urine Epithelial Cells Few/hpf (NONE-MOD) Urine Crystals None seen (NONE SEEN) Urine Bacteria Moderate/hpf (NONE-FEW) Urine Hyaline Casts None/lpf (NONE) Urine Granular Casts None seen (NONE SEEN) Urine Waxy Casts None seen (NONE SEEN) Urine Red Blood Cell Casts None seen (NONE SEEN) Urine White Blood Cell Casts None seen (NONE SEEN) Urine Mucus Present (None Seen) Urine Trichomonas None seen (NONE SEEN) Urine Yeast None (NONE SEEN) Urinalysis Comment None Urine Culture Reflexed Indicated Total Bilirubin 0.3mg/dL (0.0-1.2) Aspartate Amino Transf (AST/SGOT) 40U/L (0-50) Alanine Aminotransferase (ALT/SGPT) 60U/L (0-32) Alkaline Phosphatase 103U/L (25-165) Total Protein 4.9g/dL (6.4-8.4) Albumin 3.0g/dL (3.4-5.0) CA 125 Antigen 83.0U/mL (0.0-38.1) Test 11/01/16 06:33 White Blood Count 2.9th/mm3 (3.8-10.1) Red Blood Count 2.77mil/mm3 (3.90-5.20) Hemoglobin 10.0g/dL (12.0-15.6) Hematocrit 29.1% (35.0-46.0) Mean Corpuscular Volume 105.1fL (81-100) Mean Corpuscular Hemoglobin 36.1pg (27.0-35.0) Mean Corpuscular Hemoglobin Concent 34.4% (32.0-37.0) Red Cell Distribution Width 11.9% (12.3-15.4) Platelet Count 65bil/L (150-400) Neutrophils (%) (Auto) 68.0% (40-74) Lymphocytes (%) (Auto) 22.1% (14-46) Monocytes (%) (Auto) 7.6% (4-12) Eosinophils (%) (Auto) 1.0% (0-5) Basophils (%) (Auto) 0.3% (0-3) Sodium Level 141mEq/L (134-144) Potassium Level 3.2mEq/L (3.5-5.2) Chloride Level 104mEq/L (97-108) Carbon Dioxide Level 25mmol/L (18-29) Blood Urea Nitrogen 2mg/dL (8-27) Creatinine 0.51mg/dL (0.57-1.00) Estimat Glomerular Filtration Rate 175mL/min (>59) Glucose Level 90mg/dL (60-99) Calcium Level 8.3mg/dL (8.5-10.1) Plan Impression Patient chart reviewed, patient interviewed and anesthestic plan with risks, benefits, and alternatives discussed, and informed consent obtained. ASA Physical Status: ASA2 Mod Systemic Disease Anesthetic Plan: GA Bene/Risks/Altern/Consents: Yes HP Complete Prior to Induction: Yes Elfego Blount MD November 02, 2016 07:29
[2016-11-02] MEDS: Pantoprazole 20 mg ER24 Tablet PO SCH ×2 (08:00→16:30)
[2016-11-02] MEDS ORDERED: Bupivacaine Liposome 1.3% 20 mL Inj ONE (08:03)
[2016-11-02] MEDS ORDERED: Bupivacaine Liposome 1.3% 20 mL Inj INFILTRATE ONE (08:05)
[2016-11-02] MEDS ORDERED: Lactated Ringer's 1,000 ML IV ONE (08:07)
[2016-11-02] MEDS ORDERED: Propofol 10,000 mCg/mL 20 mL Inj ONE (08:27)
[2016-11-02] MEDS ORDERED: MeTOProlol 1 mg/mL 5 mL Inj ONE (08:27)
[2016-11-02] MEDS ORDERED: Phenylephrine/NS 100 mCg/mL 10 mL Syringe IVPUSH ONE (08:27)
[2016-11-02] MEDS ORDERED: Glycopyrrolate 0.2 MG/ML 1mL Inj ONE (08:27)
[2016-11-02] MEDS ORDERED: fentaNYL-PF 50 mCg/mL 2 mL Inj ONE (08:27)
[2016-11-02] MEDS ORDERED: Ondansetron 2 mg/mL 2 mL Inj ONE (08:27)
[2016-11-02] MEDS ORDERED: Rocuronium 10 mg/mL 5 mL Inj ONE (08:27)
[2016-11-02] MEDS ORDERED: Dexamethasone 4 mg/mL Inj ONE (08:27)
[2016-11-02] MEDS ORDERED: Neostigmine 1 mg/mL 10 mL Inj ONE (08:27)
[2016-11-02] MEDS: Ascorbic Acid 500 mg Tablet PO SCH (08:30)
[2016-11-02] MEDS ORDERED: Lactated Ringer's 500 ML IV PRN (09:19)
[2016-11-02] MEDS ORDERED: Lactated Ringer's 1,000 ML IV SCH (09:19)
[2016-11-02] MEDS ORDERED: Dexamethasone 4 mg/mL Inj IVPUSH PRN (09:20)
[2016-11-02] MEDS ORDERED: EPHEDrine Sulfate 50 mg/mL Inj IVPUSH PRN (09:20)
[2016-11-02] MEDS ORDERED: Atropine 0.4 mg/mL Inj IVPUSH PRN (09:20)
[2016-11-02] MEDS ORDERED: Labetalol 5 mg/mL 4 mL Inj IV PRN (09:20)
[2016-11-02] MEDS ORDERED: HYDROmorphone 1 mg/mL Inj IVPUSH PRN (09:20)
[2016-11-02] MEDS ORDERED: Ondansetron 2 mg/mL 2 mL Inj IVPUSH PRN (09:20)
[2016-11-02] MEDS ORDERED: MetoCLOpramide 5 mg/mL 2 mL Inj IVPUSH PRN (09:20)
[2016-11-02] MEDS ORDERED: Phenylephrine 10,000 mCg/mL Inj IVPUSH PRN (09:20)
--- NOTE | 2016-11-02 09:21 | PCM.ANEP1 ---
Post Anesthesia Phase 1 PACU Phase 1 Assessment Date of Service: November 02, 2016 Vital Signs Vital Signs Date Time Temp Pulse Resp B/P Pulse Ox O2 Delivery O2 Flow Rate FiO2 11/02/16 06:48 36.8 79 18 159/78 92 Room Air 11/02/16 02:36 36.9 73 18 141/60 92 Room Air Anesthetic Administered: GA Level of Alertness: Drowsy, not talking Pain: No Nausea or Vomiting: No Cardiovascular Function and Hy: Yes Airway Device: Oralpharangeal Airway Oxygen Delivery: Simple Mask Lungs: Normal Air Movement Complications: No Elfego Blount MD November 02, 2016 09:21
--- NOTE | 2016-11-02 09:23 | PCM.SURGOP ---
Surgical Operative Report Date of Service: November 02, 2016 Pre Operative Diagnosis Uterine carcinosarcoma, sigmoid colon obstruction Post Operative Diagnosis Same, ascites Procedure: Laparoscopy, loop transverse colostomy Surgeon and Quick Print Operator: Surgeon: Hardik Zambrano M.D. 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 She has a competent ileocecal valve, so she had progressive distention of the entire colon , and was not passing flatus, and did not have nausea or vomiting. She underwent attempted placement of a palliative stent by Dr. Juarez, which was unsuccessful because there was no appreciable lumen, and the area of the obstruction could not be traversed. After discussion of risks and benefits, she agreed to proceed with a palliative loop colostomy. She was seen by enterostomal therapy, and marked preoperatively. Findings: There was 600 mL of thin clear ascites. There were peritoneal implants on the inferior abdominal wall. The area of sigmoid colon obstruction could not be safely visualized. The transverse colon was normal, although markedly distended. Procedure Details After smooth induction of general endotracheal anesthesia, she was placed in the supine position with both arms out. A Gamboa catheter was placed. She was prepped and draped in wide sterile fashion. A procedural pause was performed according to the SCOAP checklist, and all were found to be in agreement. A vertical infraumbilical incision was made through her prior scar. Dissection was carried down with electrocautery until the fascia was incised, and the peritoneal cavity was entered. Immediately there was a moderate amount of clear ascites fluid emanating from the fascial incision. This was suctioned. A total of 600 mL of ascites was evacuated. A 5 mm balloontipped trocar was placed through the fascial incision. Pneumoperitoneum was established, although visualization was difficult because of the market colonic distention. Inspection revealed some peritoneal implants on the inferior anterior abdominal wall. The visualized portions of small bowel and colon looked normal, although distended. A transverse incision was made at the area of her preoperatively marked stoma site in the left upper abdomen. A 5 mm trocar was placed under visualization through that site into the left upper abdomen. Additional ascites fluid was suctioned and evacuated. The sigmoid colon was evaluated for loop sigmoid colostomy, but it was not sufficiently mobile to reach the anterior abdominal wall. The distal area of sigmoid colon obstruction could not be safely visualized. The transverse colon was markedly distended, but otherwise looked normal. I was concerned that it was too distended to safely bring it through a colostomy fascial incision, so a portion of her prior midline laparotomy was opened. The incision was approximately 5 cm long. The transverse colon was mobile and was brought out through the midline fascial incision. At this point, it was apparent that it could be decompressed adequately to be brought through the stoma site in the left upper abdomen. An elliptical skin incision was made at the marked stoma site on the left upper abdomen. Skin and subcutaneous tissue were excised. A cruciate incision was made in the rectus fascia anteriorly. The transverse colon was grasped with a Josy, and brought through the cruciate fascial incision, where it was able to stay in place with no tension, and was not ischemic. The midline fascial incision was then closed using running looped 0 PDS sutures 2. The skin was closed with a running 4-0 Monocryl subcuticular stitch. Dermabond was applied to the midline incision and allowed to dry. The externalized portion of the transverse colon was able to be secured to the anterior rectus fascia with a total of 4 interrupted 3-0 Vicryl sutures to prevent prolapse. The transverse colon was then opened longitudinally, and allowed to decompress. The colostomy was matured with a slight Anita technique using interrupted 3-0 Vicryl sutures to fashion the mucocutaneous junction. A stoma appliance was applied. At the end of the case all needle and sponge counts were correct 2. The patient was awakened from anesthesia without difficulty, and taken to the recovery room in satisfactory condition, having tolerated the procedure well. The Gamboa catheter was removed prior to her emergence from anesthesia. Complications There were no periprocedural complications identified. Surgical Specimen Removed: No Specimen sent to Pathology: Not applicable Anesthetic Plan: GA Grafts, Implants: None Output, Estimated Blood Loss: 10 Blood Administration during horne: No Drains: None Catheters: Urethral 2 Way Gamboa copies to: Mellisa Dhillon; Reji Buchanan Joshua D MD November 02, 2016 09:23
[2016-11-02 10:01] LABS: Mean Corpuscular Hemoglobin 36.3 pg (27.0-35.0); Mean Corpuscular Volume 104.4 fL (81-100); Platelet Count 79 bil/L (150-400)
[2016-11-02] MEDS: fentaNYL-PF 50 mCg/mL 2 mL Inj IVPUSH PRN ×2 (10:01→10:06)
[2016-11-02 10:14] LABS: INR 1.05 ratio
[2016-11-02 10:23] LABS: BASOPHILS % (AUTO) 1 % (0-3); EOSINOPHILS % (AUTO) 0 % (0-5); MONOCYTES % (AUTO) 11 % (4-12); NEUTROPHILS % (AUTO) 47 % (40-74)
[2016-11-02] MEDS: MeTOProlol XL 25 mg ER24 Tablet PO SCH (13:52)
--- NOTE | 2016-11-02 16:00 | NUR ---
POST OP Patient returned from OR at 1130, where she had colostomy done, patient arrived on 3L NC but was weened to RA and is resting with no SOB. IV NS 100, Pain Oxycodone q4 10mg + MS 2mg IVP for breakthrough abdominal pain. Colostomy has had 800ml liquid stool out so far, some ostomy teaching done. Dr Davidson has been in to see patient and well as Dr Buchanan, and Dr Matos. Addendum: 11/02/16 at 1847 by SIRISHA VAZQUEZ RN TRANSFER TO [facility] Patient transffered to [facility] at 1830, room 1030. Report given to Pillo NAVA. Patient's family made aware of change in room.
--- NOTE | 2016-11-02 18:47 | NUR ---
Transfer Pt transferred from [facility] to [facility] unit, room 1030. Arrived via bed to [facility] at 1830. A&Ox3, ESTRADA, VSS, IVx2 - Patent to Left FA and SL to Right AC, SCDs present but not on at this time, No current complaints of pain - states it comes in waves and lasts for ~10 seconds and then goes away, Midline incision open to air - no drainage, Colostomy patent and dressing intact with brown liquid stool output. Call to CS for ostomy cart to be present. All personal belongings brought down with patient, Oriented to room - call light in reach. Previous RN made call to pt re: transfer. Care continues.
--- NOTE | 2016-11-02 20:00 | NUR ---
Resp Pt has an oxygen saturation of 90% on Room air. No resp distress. Lungs are CTA. Given 2mg IV morphine for pain control. Given 2L nasal canula to improve oxygen saturations. Will cont to monitor.
[2016-11-03] MEDS: 0.9% Sodium Chloride 1,000 ML IV SCH (03:00)
[2016-11-03 05:02] VITALS: BP 133/74; PULSE 85; RESP 20; O2SAT 91
[2016-11-03 07:53] LABS: BASOPHILS % (AUTO) 0.3 % (0-3); EOSINOPHILS % (AUTO) 0.9 % (0-5); MONOCYTES % (AUTO) 18.1 % (4-12); Mean Corpuscular Hemoglobin 36.2 pg (27.0-35.0); NEUTROPHILS % (AUTO) 49.8 % (40-74); Platelet Count 69 bil/L (150-400)
[2016-11-03 08:17] VITALS: BP 133/77; PULSE 80; RESP 20; O2SAT 91
[2016-11-03] MEDS: Polyethylene Glycol (PEG) 17 Gm Powder PO SCH (08:30)
[2016-11-03] MEDS: Ascorbic Acid 500 mg Tablet PO SCH (08:30)
[2016-11-03] MEDS: MeTOProlol XL 25 mg ER24 Tablet PO SCH (09:05)
[2016-11-03] MEDS: Pantoprazole 20 mg ER24 Tablet PO SCH ×2 (09:05→20:22)
--- NOTE | 2016-11-03 10:07 | PROG NOTE ---
[address] [address] PROGRESS NOTE PATIENT: ENRIQUETA MORROW : 1955 MR#: [id number] ADMIT: 10/27/2016 JOB ID: [id number] DATE: 11/03/2016 SUBJECTIVE: The patient is seen in followup. She is doing fairly well. She had a large amount of stool output into her colostomy yesterday. She does not have nausea. Her abdominal pain is well controlled. OBJECTIVE: Temperature 37.3, pulse 80, blood pressure 133/77, saturation 91% on room air. In general, she is resting in bed in no acute distress. Abdomen is soft, nondistended. Her midline wound is clean. The colostomy in the left mid abdomen has soft brown stool in the appliance. LABORATORIES: White blood cell count 3.3, hematocrit 29.8, platelets 69, creatinine 0.51. ASSESSMENT AND PLAN: A 61-year-old woman with sigmoid colon obstruction from uterine cancer, status post diverting loop colostomy. She is doing well. She can have a soft diet. I think she could probably be safely discharged from the hospital tomorrow. Colostomy teaching will be done by wound therapy this afternoon.
[2016-11-03 15:10] VITALS: BP 124/74; PULSE 75; RESP 18; O2SAT 100
--- NOTE | 2016-11-03 15:26 | PCM.PNMED ---
Subjective Date of Service November 03, 2016 Subjective Patient doing well, no specific complaints overnight, colostomy has adequate output. Denies nausea or significant pain. Diet advance today per surgery Exam Vital Signs Vital Sign - Last Date Time Temp Pulse Resp B/P Pulse Ox O2 Delivery O2 Flow Rate FiO2 11/03/16 15:10 36.3 75 18 124/74 100 Room Air 11/02/16 10:55 3 Intake and Output 11/02/16 11/02/16 11/03/16 Cumulative From/Thru 15:00 23:00 07:00 10/27/16 16:47 - 11/03/16 06:25 Intake Total 1200 ml 975 ml 1200 ml 78337 ml Output Total 270 ml 1100 ml 1400 ml 59264 ml Balance 930 ml -125 ml -200 ml 9278 ml Intake Oral 500 ml 1200 ml 5855 ml IV Total 1200 ml 475 ml 46974 ml Output Urine Total 250 ml 300 ml 800 ml 8850 ml Stool Total 800 ml 600 ml 1400 ml Urine/Stool Mix 500 ml Estimated Blood Loss 20 ml 20 ml # Voids 2 # Bowel Movements 0 Exam GEN: NAD , pleasant HEENT: LOLI. Sclerae is anicteric Neck : Supple. No JVD, no lymphadenopathy Chest : Normal respiratory effort Lung : CLear bilaterally. No wheezing , no crackles Heart : +S1/S2, regular rate and rhythm, positive 2/6 systolic murmur auscultated Abdomen : Distended , non tender. +bowel sounds, colostomy in place with stool, no blood, mild tenderness around ostomy but no discharge noted EXT: no clubbing, cyanosis, edema Neuro: Cranial nerves II-XII grossly intact Psych: mood and affect were appropriate IVs and Medications Medications Reviewed: Medications were reviewed in detail Lab and Diagnostics Result Diagram: 11/03/16 0740 11/03/16 0740 X-Rays, CTs and MRIs PROCEDURE: CT ABDOMEN AND PELVIS WITH CONTRAST ([id number]) IMPRESSION: 1. Colonic distention proximal to a persistent area of enhancing wall thickening in the sigmoid colon suspect for neoplasm but inflammatory disease is not excluded. 2. Progressive metastatic disease from known uterine cancer with increased size and number of hepatic lesions. Splenic metastases as before. 3. Peritoneal implants and enhancing mass over the left vaginal cuff also suspect for metastatic deposits are reidentified and slightly more prominent. 4. Nonspecific areas of sclerosis in the left sacrum and ischium Major findings are concordant with the preliminary report Additional Diagnostics PROCEDURE: X-RAY ENEMA WITH GASTROGRAPHIN ([id number]) INDICATIONS: mechanical vs functional large bowel obstruction? COMPARISON: [facility], CT, CT ABD PELVIS W CON, 09/15/2016, 15:16. 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 No suspicious abdominal calcifications. Visualized solid organ contours appear normal in size. No suspicious bony lesions. Colon: Gastrografin was instilled to the level of the mid sigmoid colon where no additional contrast medium was able to be instilled distal from this point. Stricture and/or mass is suspected. The attending physician was personally present in the room during the examination. IMPRESSION: Limited Gastrografin enema demonstrating opacification of the rectum and the small portion of the sigmoid at which point Gastrografin was unable to be further instilled. Stricture and/or mass is suspected. Endoscopy is recommended. 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 1. Large Bowel Obstruction? Sigmoid Obstruction status post colostomy placement on 11/02 : Due to metastatic cancer, POA Colonoscopy: not possible to pass scope including attempt to pass a pediatric scope. Colostomy on 11/02 procedure was surgery -Diet advance to soft -IV fluids discontinued -Symptomatic management with IV Zofran and Dilaudid 2. Recurrent metastatic uterine cancer, POA -Currently on second line chemotherapy, as managed by Dr. Buchanan, Oncologist -macrocytosis and transaminitis are secondary to oncological process and treatment 3. Pancytopenia due to chemotherapy. On Neupogen Oncology following -Neutropenic precautions . Patient not febrile 4. Essential hypertension, POA -Stable, continue patient's metoprolol when taking PO 5. Hypothyroidism, POA On levothyroxine supplement -TSH 2.95 on admission Clinically stable. Discharge home tomorrow Patient to follow up as outpatient with oncology. jail prognosis is poor Pain Evaluation: Adequate Pain Control GI Prophylaxis: Proton Pump Inhibitor VTE Prophylaxis: Sub-Q Heparin (Unfractionated), SCDs VTE Mechanical Devices: Intermittant Pneumatic CD Resuscitation Status: CPR: Attempt Resuscitation Time spent 30 minutes spent with evaluation and management Logan Matos DO November 03, 2016 15:26
--- NOTE | 2016-11-03 15:34 | NUR ---
Wound Care Patient seen for ostomy teaching, current appliance and pouch removed, pouch 1/3 full of thin rahman stool. patient has developed 2 small blisters on peristomal skin between stoma and incision, incision remains well approximated. Stoma is mildly protuberant and deep red, mucocutaneous border is intact, peristomal skin is slightly erythemic, abdomen remains slightly distended. Instructed patient in frequency of appliance changes and how to drain pouch, instructed in peristomal skin care with stoma powder and cavilon skin barrier for crusting. After crusting an Eakins ring was placed around stoma and then a Coloplast [place] Sensura one piece appliance was placed with a good seal attained. Patient has follow up appointment at wound clinic for continued ostomy teaching and supply ordering. An extra Coloplast [place] was left in the room. Wound care will check on patient tomorrow.
--- NOTE | 2016-11-03 16:08 | NUR ---
Social Work- Readiness for Discharge Data: EMR reviewed. Pt is on day of hospitalization for bowel obstruction, metastatic cancer per H&P. Per MD in rounds, Pt is not medically stable for discharge, anticipate discharge tomorrow. NUTRITION SPECIALIST spoke with Marketing Director Assisted Living and pt regarding pt's colostomy needs at discharge. Pt [facility] on 07 NOVEMBER. Pt is planning on returning to work after . NUTRITION SPECIALIST spoke with pt about home health and a skilled RN coming to her home to reinforce her colostomy care needs and continue training and teaching. Pt was extremely agreeable to this. Pt will be temporarily homebound prior to returning to work. CHOICE LIST PROVIDED. Pt requested SW contact both [facility] regarding open times. NUTRITION SPECIALIST spoke with Chanel Hilliard, [facility] liaison, regarding open dates. [facility] would be able to open 08 November. NUTRITION SPECIALIST spoke with Bhavin Louise RN, [facility] states that they would be able to open 05 November. NUTRITION SPECIALIST made referral to CASSANDRA Romero RN to update pt at bedside prior to discharge. SW will continue to follow. Assessment: Pt for whom [facility] RN is medically necessary to reinforce colostomy teachings at home. Plan: Referral made to [facility] as [facility] are able to open earlier than [facility]. [facility] would be able to open 05 November. NUTRITION SPECIALIST made referral to CASSANDRA Romero RN to update pt at bedside prior to discharge. SW will continue to follow. CASSANDRA Germain Addendum: 11/04/16 at 1327 by SIENA BHARDWAJ Amendment- Readiness for Discharge Data: YISSEL spoke with pt regarding [facility] hearing instrument specialist, pt is agreeable. YISSEL spoke with Bhavin Henson liaison at [facility], regarding pt's discharge. Bhavin is agreeable to pt discharging 11/05 vs. 11/04. F2F provided. Copy placed in hard chart. YISSEL will continue to follow. CASSANDRA Germain
--- NOTE | 2016-11-03 16:22 | NUR ---
Pain/mobility/stoma care Patient medicated this afternoon for pain around stoma area. patent is noted to have blisters around stoma edge and redness from pouch adhesive. Pouch removed and new one placed this am as it was leaking . wound care here this afternoon and replaced with a one piece set up. Patient up ambulated in hallway progressing towards discharge.
--- NOTE | 2016-11-03 16:44 | NUR ---
NUTRITION FOLLOW UP: ASSESS: 61 YO Female admitted with large bowel obstruction due to metastatic disease s/p diverting loop colostomy. Pt diet has been advanced to soft and pt is eating 75-100% of meals. PMHX: Uterine cancer with mets to liver/spleen on chemo therapy, hypothyroidism,anemia DIET: Soft. PO 75-100% of meals. LABS:Reviewed. Alb 2.9, Ca 8.0, Cr 0.51, BUN 7. MEDS: Reviewed GI: Colostomy output noted, 600 ML 11/03. WEIGHT: 65.6 kg. Admit: 60.4kg EST.NEEDS: CANCER Kcal: 0488-5760 kcals (25-30 kcals/kg BW) Pro: 60-90 g protein (1.0-1.5 g/kg BW) NUTRITION DIAGNOSIS: (1) Inadequate oral intake related to possible bowel obstruction/abdominal pain/n/v as evidenced by Clear liquid diet status--IMPROVED. INTERVENTION: (1) Continue Ensure on all meal trays. MONITOR/EVALUATE: PO intake, labs, nutritional status. Follow per moderate nutritional risk guidelines.
[2016-11-03 19:45] VITALS: BP 137/79; PULSE 80; RESP 20; O2SAT 93
--- NOTE | 2016-11-04 02:15 | NUR ---
Activity/Pain Patient A&OX3 and pleasant this evening. Complains of 4/10 abdominal pain. 5mg of Oxycodone PO was given, and appears to be providing adequate relief. Has been up to bathroom via SBA, and tolerates activity well. Colostomy is putting out loose stool, and midline incision is well approximated. Patient has been able to achieve adequate sleep so far in this shift. Will continue to monitor, and continue Q1 hour checks. Addendum: 11/04/16 at 0500 by TESS TSAI RN Correction regarding colostomy Colostomy has not produced stool this shift. Midline incision is well approximated.
[2016-11-04 04:53] VITALS: BP 172/85; PULSE 74; RESP 20; O2SAT 95
[2016-11-04 06:12] LABS: BASOPHILS % (AUTO) 0.3 % (0-3); EOSINOPHILS % (AUTO) 1.4 % (0-5); Mean Corpuscular Hemoglobin 36.5 pg (27.0-35.0); Mean Corpuscular Volume 107.7 fL (81-100); Platelet Count 82 bil/L (150-400)
[2016-11-04] MEDS ORDERED: Potassium Chloride 20 mEq/15 mL 15mL Oral Soln PO ONE (07:35)
[2016-11-04] MEDS: Polyethylene Glycol (PEG) 17 Gm Powder PO SCH (08:13)
[2016-11-04] MEDS: MeTOProlol XL 25 mg ER24 Tablet PO SCH (08:14)
[2016-11-04] MEDS: Pantoprazole 20 mg ER24 Tablet PO SCH ×2 (08:14→17:58)
[2016-11-04] MEDS: Ascorbic Acid 500 mg Tablet PO SCH (08:14)
--- NOTE | 2016-11-04 10:21 | PROG NOTE ---
[address] [address] PROGRESS NOTE PATIENT: ENRIQUETA MORROW : 1955 MR#: [id number] ADMIT: 10/27/2016 JOB ID: [id number] DATE: 11/04/2016 SUBJECTIVE: The patient is seen in followup. She is doing well. Her pain is well controlled. She has no nausea. She herself feels ready to leave the hospital, but she is not sure yet if her is ready to help enough at home to make sure she is cared for. OBJECTIVE: Temperature is 36.8, pulse 74, blood pressure 172/85. Saturation 95% on room air. In general, she is sitting up in bed, in no acute distress. Her abdomen is soft, nondistended. Her incision is well approximated, with no erythema. The colostomy is intact, well perfused, with some liquid brown stool in the appliance. LABORATORIES: White count is 3.5, hematocrit 29.5, platelets 82. Creatinine 0.50, glucose 135. 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 She is doing well from a surgical standpoint. I think she can be discharged from the hospital at any time, mainly at this point, depending on her home situation. She thinks she will possibly be ready by later today to go home with her , otherwise definitely tomorrow. She should follow up with me in the surgery clinic in approximately one week for a wound check.
--- NOTE | 2016-11-04 10:30 | PCM.PNMED ---
Subjective Date of Service November 04, 2016 Subjective No complaints overnight, did still have some pain up to 7-8 at 10 before medications given. Concerned about discharged today get him home situation and would like to monitor colostomy output, by mouth intake and pain on Monday today and plan for discharge tomorrow. Denies fevers chills or chest pain. was present for colostomy change yesterday with wound care. Exam Vital Signs Vital Sign - Last Date Time Temp Pulse Resp B/P Pulse Ox O2 Delivery O2 Flow Rate FiO2 11/04/16 04:53 36.8 74 20 172/85 95 Room Air 11/02/16 10:55 3 Intake and Output 11/03/16 11/03/16 11/04/16 Cumulative From/Thru 15:00 23:00 07:00 10/27/16 16:47 - 11/04/16 06:38 Intake Total 800 ml 500 ml 81372 ml Output Total 1500 ml 1400 ml 50748 ml Balance -700 ml -900 ml 7678 ml Intake Oral 800 ml 500 ml 7155 ml IV Total 47374 ml Output Urine Total 1500 ml 1400 ml 39955 ml Stool Total 1400 ml Urine/Stool Mix 500 ml Estimated Blood Loss 20 ml # Voids 2 4 # Bowel Movements 0 Exam GEN: NAD , pleasant HEENT: LOLI. Sclerae is anicteric Neck : Supple. No JVD, no lymphadenopathy Chest : Normal respiratory effort Lung : CLear bilaterally. No wheezing , no crackles Heart : +S1/S2, regular rate and rhythm, positive 2/6 systolic murmur auscultated Abdomen : Distended , non tender. +bowel sounds, colostomy in place with stool, no blood, mild erythema/tenderness midline around ostomy but no discharge noted EXT: no clubbing, cyanosis, edema Neuro: Cranial nerves II-XII grossly intact Psych: mood and affect were appropriate IVs and Medications Medications Reviewed: Medications were reviewed in detail Lab and Diagnostics Result Diagram: 11/04/1654311/04/16543 X-Rays, CTs and MRIs PROCEDURE: CT ABDOMEN AND PELVIS WITH CONTRAST ([id number]) IMPRESSION: 1. Colonic distention proximal to a persistent area of enhancing wall thickening in the sigmoid colon suspect for neoplasm but inflammatory disease is not excluded. 2. Progressive metastatic disease from known uterine cancer with increased size and number of hepatic lesions. Splenic metastases as before. 3. Peritoneal implants and enhancing mass over the left vaginal cuff also suspect for metastatic deposits are reidentified and slightly more prominent. 4. Nonspecific areas of sclerosis in the left sacrum and ischium Major findings are concordant with the preliminary report Additional Diagnostics PROCEDURE: X-RAY ENEMA WITH GASTROGRAPHIN ([id number]) INDICATIONS: mechanical vs functional large bowel obstruction? COMPARISON: [facility], CT, CT ABD PELVIS W CON, 09/15/2016, 15:16. FINDINGS: KUB: Preprocedural search specialist film demonstrates moderate fecal loading. No suspicious abdominal calcifications. Visualized solid organ contours appear normal in size. No suspicious bony lesions. Colon: Gastrografin was instilled to the level of the mid sigmoid colon where no additional contrast medium was able to be instilled distal from this point. Stricture and/or mass is suspected. The attending physician was personally present in the room during the examination. IMPRESSION: Limited Gastrografin enema demonstrating opacification of the rectum and the small portion of the sigmoid at which point Gastrografin was unable to be further instilled. Stricture and/or mass is suspected. Endoscopy is recommended. 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 1.Sigmoid Obstruction status post colostomy placement on 11/02 : Due to metastatic cancer, POA Colonoscopy: not possible to pass scope including attempt to pass a pediatric scope. Colostomy on 11/02 procedure was surgery -Diet advance to soft -IV fluids discontinued -Symptomatic management with IV Zofran and Dilaudid -Colostomy teaching -Pain control 2. Recurrent metastatic uterine cancer, POA -Currently on second line chemotherapy, as managed by Dr. Buchanan, Oncologist -macrocytosis and transaminitis are secondary to oncological process and treatment 3. Pancytopenia due to chemotherapy. On Neupogen Oncology following -Neutropenic precautions . Patient not febrile 4. Essential hypertension, POA -Stable, continue patient's metoprolol when taking PO 5. Hypothyroidism, POA On levothyroxine supplement -TSH 2.95 on admission Clinically stable. 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
[2016-11-04 10:34] VITALS: BP 128/77; PULSE 71; RESP 18; O2SAT 95
--- NOTE | 2016-11-04 13:50 | NUR ---
Lovenox started Lovenox this morning. Confirmed with MD that platelets were 82 and he verified he wanted the dose given. Pt educated on drug and knows to monitor for s/s of bleeding.
[2016-11-04 15:14] VITALS: BP 153/82; PULSE 77; RESP 18; O2SAT 96
--- NOTE | 2016-11-04 15:17 | NUR ---
Wound/Ostomy Patient seen at bedside for appliance changing instruction, today patient able to independently remove and reapply a Coloplast one piece with an Eakins seal. A Alma no sting skin barrier was used to protect blistered skin. Patient also used Brava strips to help secure appliance edges, a good seal was attained. Patient likes the ease of single piece appliance and is confident that she can apply at home on her own but an outpatient wound center appointment has been made for Tuesday 11/07. Patient supplied with ostomy dressing to get her through till follow up in wound care.
[2016-11-04 18:35] VITALS: BP 147/80; PULSE 80; RESP 19; O2SAT 95
[2016-11-04 20:40] VITALS: BP 145/81; PULSE 80; RESP 18; O2SAT 94
--- NOTE | 2016-11-05 03:33 | NUR ---
Activity Patient A&OX3 and pleasant this evening. Pain has been managed effectively with 5mg of oxycodone PO. Patient assisted with emptying of colostomy bag this evening. States that she feels better today after talking with doctor Kenya in the morning and getting some questions answered, and having teaching provided by wound care. States she feels more prepared to go home, but is still a little nervous.Allowed patient plenty of time to express concerns and feelings. Has been able to achieve optimal amount of sleep this evening. Will continue to monitor, and continue Q1 hour checks.
[2016-11-05] MEDS: Ascorbic Acid 500 mg Tablet PO SCH (08:30)
[2016-11-05 08:50] VITALS: BP 120/75; PULSE 75; RESP 18; O2SAT 97
[2016-11-05] MEDS: Pantoprazole 20 mg ER24 Tablet PO SCH (08:50)
[2016-11-05] MEDS: Polyethylene Glycol (PEG) 17 Gm Powder PO SCH (08:51)
[2016-11-05] MEDS: MeTOProlol XL 25 mg ER24 Tablet PO SCH (08:51)
[2016-11-05] MEDS ORDERED: OXYC5TAB72 PO (11:06)
--- NOTE | 2016-11-05 11:12 | PCM.DIMED ---
Discharge Instructions Date of Service November 05, 2016 Dates of Hospitalization October 27, 2016 at 20:20 Discharge Diagnosis Discharge Diagnosis Colostomy Metastatic Uterine Cancer with Sigmoid Obstruction Hypertension Hypothyroidism Diet No restrictions Activity No restrictions Call your provider Fever or Chills, Shortness of breath, Bleeding, Chest pain, Vomitting, Excessive diarrhea, Weakness (unilateral) Patient Instructions Follow-up Provider: Mellisa Dhillon Follow-up with PCP in: 1 week Provider: Hardik Zambrano MD Follow-up in: 1 week Raf Lopez MD November 05, 2016 11:01
--- NOTE | 2016-11-05 14:18 | NUR ---
Discharge To home via private vehicle at 14:10 with . Steady transfer to wheelchair. 2 IVs discontinued intact. All belongings sent with pt. Pt and express understanding of all discharge instructions and care notes, including followup and meds. Rx given.
--- NOTE | 2016-11-05 14:31 | NUR ---
Social Work Note: Discharge Data& Assessment: EMR reviewed. Per pt is medically ready to discharge home via POV with [facility] RN to follow. Lucinda Melendrez is a 61 year old female admitted on 10/27/2016 for bowel obstruction. Pt had a colostomy on 11/02/2016. Pt set up with follow up wound care center appt on 11/07/2016. Per pt is medically improved and ready to discharge. SW met with pt at bedside to confirm discharge plan and assess for any unmet needs. Pt family providing transportation home today. Pt denies any other needs. SW notified Nancy from [facility] of pt discharge. All updated and agreeable to plan. No other discharge needs identified. Plan: Per pt is medically improved and ready to discharge home via POV with [facility] RN to follow. Pt denies any other needs. All updated and agreeable to plan. No other discharge needs CASSANDRA Mercado
--- NOTE | 2016-11-05 15:50 | PCM.DC.MED ---
Discharge Summary Date of Service November 05, 2016 Dates of Hospitalization Date of Hospital Admission October 27, 2016 at 20:20 Date of Discharge: November 05, 2016 Providers: Admitting Physician: Chantell Saxena DO Primary Care Physician: Mellisa Dhillon Diagnosis at Time of Discharge Diagnosis at Time of Discharge Colostomy Metastatic Uterine Cancer with Sigmoid Obstruction Hypertension Hypothyroidism Consultations DATE OF SERVICE: 10/27/2016 CHIEF COMPLAINT/IDENTIFICATION: Dr. Almazan and Dr. Buchanan have asked me to see this 61-year-old woman who presents with nausea and vomiting and no bowel movement since last Monday. HISTORY OF PRESENT ILLNESS: The patient has a history of recurrent uterine carcinosarcoma. She has noted bloating for about one week associated with decreased stool output. She had an abdominal CT scan yesterday when she came to the emergency department with similar complaints. She was started on increased cathartics from above and comes in vomiting. Her history of carcinosarcoma goes back to 2011, by her report, when she underwent a hysterectomy and had incidental finding. It was felt that no further intervention was warranted at that time, but in 2014 she tells me that it came back presenting with some vaginal bleeding and that she was treated with radiation but no further surgery and chemotherapy. She tells me she was recently seen on the PET scan to have progressing tumor including some metastatic disease in the right upper quadrant. She was placed on new chemotherapy by her report from Dr. Buchanan. PAST MEDICAL HISTORY: Hypertension, status post appendectomy, hysterectomy. She gives me some odd history of a bowel obstruction around the time that her son was born though she does not believe that any intestines were removed. MEDICATIONS: 1. Metoprolol. 2. Omeprazole. 3. Levothyroxine. ALLERGIES: No real drug allergies just some intolerance of MAGNESIUM and POTASSIUM. SOCIAL HISTORY: She is . She still works at the [employer]. Her is retired and they have two adult sons. She does not smoke cigarettes, she does not drink alcohol. PHYSICAL EXAMINATION: A pleasant woman in no acute distress. Vital signs are recorded in the chart with a temperature of 36.8, pulse is 78 and blood pressure of 110/82. Direct examination reveals a distended abdomen with some tympany, normal bowel tones. Rectal examination is not performed. IMAGING: I have reviewed her CT scan including the report and looked at the images myself. The report notes colonic distention proximal to persistent area of enhancing wall thickening in the sigmoid colon suspicious for neoplasm as well as progressive metastatic disease including omental cakes and peritoneal implants. To my eye, it clearly looks like she has a mechanical obstruction at the level of the distal sigmoid rather than diffuse obstipation. IMPRESSION/PLAN: A 61-year-old otherwise healthy woman with metastatic uterine cancer that is progressing well on chemotherapy who now likely has mechanical large bowel obstruction that is near complete or even possibly complete. She has a normal white count, normal electrolytes without an anion gap. I do not think she needs urgent surgical intervention, but my recommendation would be to get a Gastrografin enema tomorrow morning to confirm the diagnosis of mechanical large bowel obstruction. If it turns out that this is simply obstipation, the Gastrografin enema would also be therapeutic, but I would be very surprised if this is not a mechanical obstruction. I have told her such and I have told her that the only intervention unless Dr. Buchanan has a plan to rapidly shrink the tumor in her pelvis, would be that she have a diverting colostomy in the near future. [facility] for her nausea and vomiting and for hydration. I have ordered a Gastrografin enema tomorrow, and I will follow up on that with one of the general surgery physician's assistants rounding on her tomorrow. We did discuss the possibility of a laparoscopic colostomy on Monday. Logan Lord MD 10/27/[id number] DATE OF SERVICE: 10/28/2016 REQUESTING PROVIDER: Hardik Zambrano MD. REASON FOR CONSULTATION: High-grade bowel obstruction. HISTORY OF PRESENT ILLNESS: This is a 61-year-old female with a recurrence of uterine cancer at the vaginal cuff even in the setting of prior post hysterectomy BSO. She presents to the hospital with findings consistent with high-grade colonic obstruction. Her CT was reviewed in PACS. She had a Gastrografin and no contrast made it north of the obstructed segment. The plan is for a palliative colostomy on Monday. I was asked to see the patient in regards to the possibility of intracolonic stenting so as to avoid the need for operative intervention. The patient is not having nausea, vomiting. She has a full abdomen. She is passing some flatus and interestingly had "five small poops" after the Gastrografin enema. Additionally, she had a moderate amount of flatus pass with the Gastrografin. ALLERGIES: 1. SODIUM SULFATE. 2. POTASSIUM SULFATE. 3. MAGNESIUM SULFATE. MEDICATIONS: Please see the [facility] list. (Currently during this dictation [employer] is down.) OBJECTIVE: GENERAL: The patient was in no distress. Alert, oriented, cooperative, conversational. ABDOMEN: Was full. Bowel sounds present. No significant tenderness during my exam. LABS: The patient is currently neutropenic. IMAGING: I personally reviewed the CAT scan and the Gastrografin images. ASSESSMENT AND PLAN: A 61-year-old female with recurrent uterine carcinosarcoma. This appears to be creating a high-grade obstruction in the region of the sigmoid colon. It is interesting that the Gastrografin did not get north of the obstructed segment, but she has since been able to pass flatus. I think for now a clear liquid diet would be just fine. I have encouraged her to let us know if she has any increasing symptoms, such as nausea and/or vomiting which may require the need for NG tube. I will discuss with Dr. Zambrano the possibility of going in just prior to his diverting colostomy and attempting to traverse the lesion with the endoscope. If we were able to do that, we could certainly explore the option of a stent and, even at that point, cancel the surgery if we are successful. On the other hand, if in the operating room, we are not able to advance the wire or get a stent across the lesion, then the patient would proceed with the planned surgery. Dilshad Juarez MD 10/28/16 [id number] Procedures XRay, CTs & MRIs PROCEDURE: CT ABDOMEN AND PELVIS WITH CONTRAST ([id number]) IMPRESSION: 1. Colonic distention proximal to a persistent area of enhancing wall thickening in the sigmoid colon suspect for neoplasm but inflammatory disease is not excluded. 2. Progressive metastatic disease from known uterine cancer with increased size and number of hepatic lesions. Splenic metastases as before. 3. Peritoneal implants and enhancing mass over the left vaginal cuff also suspect for metastatic deposits are reidentified and slightly more prominent. 4. Nonspecific areas of sclerosis in the left sacrum and ischium Major findings are concordant with the preliminary report Invasive Procedures Surgical Operative Report Date of Service: November 02, 2016 Pre Operative Diagnosis Uterine carcinosarcoma, sigmoid colon obstruction Post Operative Diagnosis Same, ascites Procedure: Laparoscopy, loop transverse colostomy Surgeon and [employer] Worker: Surgeon: Hardik Zambrano M.D. 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 She has a competent ileocecal valve, so she had progressive distention of the entire colon , and was not passing flatus, and did not have nausea or vomiting. She underwent attempted placement of a palliative stent by Dr. Juarez, which was unsuccessful because there was no appreciable lumen, and the area of the obstruction could not be traversed. After discussion of risks and benefits, she agreed to proceed with a palliative loop colostomy. She was seen by enterostomal therapy, and marked preoperatively. Findings: There was 600 mL of thin clear ascites. There were peritoneal implants on the inferior abdominal wall. The area of sigmoid colon obstruction could not be safely visualized. The transverse colon was normal, although markedly distended. Procedure Details After smooth induction of general endotracheal anesthesia, she was placed in the supine position with both arms out. A Gamboa catheter was placed. She was prepped and draped in wide sterile fashion. A procedural pause was performed according to the SCOAP checklist, and all were found to be in agreement. A vertical infraumbilical incision was made through her prior scar. Dissection was carried down with electrocautery until the fascia was incised, and the peritoneal cavity was entered. Immediately there was a moderate amount of clear ascites fluid emanating from the fascial incision. This was suctioned. A total of 600 mL of ascites was evacuated. A 5 mm balloontipped trocar was placed through the fascial incision. Pneumoperitoneum was established, although visualization was difficult because of the market colonic distention. Inspection revealed some peritoneal implants on the inferior anterior abdominal wall. The visualized portions of small bowel and colon looked normal, although distended. A transverse incision was made at the area of her preoperatively marked stoma site in the left upper abdomen. A 5 mm trocar was placed under visualization through that site into the left upper abdomen. Additional ascites fluid was suctioned and evacuated. The sigmoid colon was evaluated for loop sigmoid colostomy, but it was not sufficiently mobile to reach the anterior abdominal wall. The distal area of sigmoid colon obstruction could not be safely visualized. The transverse colon was markedly distended, but otherwise looked normal. I was concerned that it was too distended to safely bring it through a colostomy fascial incision, so a portion of her prior midline laparotomy was opened. The incision was approximately 5 cm long. The transverse colon was mobile and was brought out through the midline fascial incision. At this point, it was apparent that it could be decompressed adequately to be brought through the stoma site in the left upper abdomen. An elliptical skin incision was made at the marked stoma site on the left upper abdomen. Skin and subcutaneous tissue were excised. A cruciate incision was made in the rectus fascia anteriorly. The transverse colon was grasped with a Mullin, and brought through the cruciate fascial incision, where it was able to stay in place with no tension, and was not ischemic. The midline fascial incision was then closed using running looped 0 PDS sutures 2. The skin was closed with a running 4-0 Monocryl subcuticular stitch. Dermabond was applied to the midline incision and allowed to dry. The externalized portion of the transverse colon was able to be secured to the anterior rectus fascia with a total of 4 interrupted 3-0 Vicryl sutures to prevent prolapse. The transverse colon was then opened longitudinally, and allowed to decompress. The colostomy was matured with a slight Anita technique using interrupted 3-0 Vicryl sutures to fashion the mucocutaneous junction. A stoma appliance was applied. At the end of the case all needle and sponge counts were correct 2. The patient was awakened from anesthesia without difficulty, and taken to the recovery room in satisfactory condition, having tolerated the procedure well. The Gamboa catheter was removed prior to her emergence from anesthesia. Complications There were no periprocedural complications identified. Surgical Specimen Removed: No Specimen sent to Pathology: Not applicable Anesthetic Plan: GA Grafts, Implants: None Output, Estimated Blood Loss: 10 Blood Administration during horne: No Drains: None Catheters: Urethral 2 Way Gamboa copies to: Mellisa Dhillon; Reji Buchanan Joshua D MD Other Diagnostics PROCEDURE: X-RAY ENEMA WITH GASTROGRAPHIN ([id number]) INDICATIONS: mechanical vs functional large bowel obstruction? COMPARISON: [facility], CT, CT ABD PELVIS W CON, 09/15/2016, 15:16. FINDINGS: KUB: Preprocedural drying machine tender film demonstrates moderate fecal loading. No suspicious abdominal calcifications. Visualized solid organ contours appear normal in size. No suspicious bony lesions. Colon: Gastrografin was instilled to the level of the mid sigmoid colon where no additional contrast medium was able to be instilled distal from this point. Stricture and/or mass is suspected. The attending physician was personally present in the room during the examination. IMPRESSION: Limited Gastrografin enema demonstrating opacification of the rectum and the small portion of the sigmoid at which point Gastrografin was unable to be further instilled. Stricture and/or mass is suspected. Endoscopy is recommended. 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 Patient was recently evaluated at this ER and prescribed lactulose for her obstipation, but was unable to tolerate it. She reports her abdomen has been increasingly bloated and she has been vomiting up any PO intake. She reports passing some flatus but otherwise denies any fever, chills, dysuria, weight change, DOLL, dizziness, CP, or SOB. She was recently changed to 2nd line chemotherapy for her uterine cancer. In the ED, her vital signs were stable and her CBC and CMP were per her baseline. She had a CT abd/pelvis that was remarkable for colonic distension proximal to the sigmoid and hepatic/splenic/peritoneal enhancing masses suspicious of metastases. Gen. 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 1.Sigmoid Obstruction status post colostomy placement on 11/02 : Due to metastatic cancer, POA Colonoscopy: not possible to pass scope including attempt to pass a pediatric scope. Colostomy on 11/02 procedure was surgery -Now tolerating regular diet. -IV fluids discontinued -Colostomy teaching done -Pain under control 2. Recurrent metastatic uterine cancer, POA -Currently on second line chemotherapy, as managed by Dr. Buchanan, Oncologist -macrocytosis and transaminitis are secondary to oncological process and treatment 3. Pancytopenia due to chemotherapy. On Neupogen Oncology following -Neutropenic precautions . Patient not febrile 4. Essential hypertension, POA -Continues on Metoprolol 5. Hypothyroidism, POA On levothyroxine supplement -TSH 2.95 on admission Clinically stable. 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 Exam Vital Signs (Last) Date Time Temp Pulse Resp B/P Pulse Ox O2 Delivery O2 Flow Rate FiO2 11/05/16 08:50 36.7 75 18 120/75 97 Room Air 11/02/16 10:55 3 Exam She is upbeat and seems unrealistically hopeful. Heart: RRR without murmur Lungs: CTAB Abdomen: Incision well healed, Not tender, ostomy bag in place and functional. No ankle edema Test 10/27/16 18:18 10/27/16 18:21 10/27/16 22:29 10/31/16 07:10 Lipase 54U/L (13-60) Thyroid Stimulating Hormone (TSH) 2.950uIU/mL (0.450-4.500) Hold Sweeney Top Tube Received (Received) Urine Color Maryam (YELLOW) Urine Appearance Hazy (CLEAR,HAZY) Urine pH 5.5 (5.0-8.0) Urine Specific [place] 1.036 (1.003-1.035) Urine Protein 100mg/dL (NEG,TRACE) Urine Glucose (UA) Negativemg/dL (NEGATIVE) Urine Ketones 40mg/dL (NEGATIVE) Urine Occult Blood Moderate (NEGATIVE) Urine Nitrite Negative (NEGATIVE) Urine Bilirubin Negative (NEGATIVE) Urine Ictotest Negative (Negative) Urine Urobilinogen 1.0mg/dL (NORMAL) Urine Leukocyte Esterase Negative (NEGATIVE) Urine RBC 11-50/hpf (0-2) Urine WBC 6-10/hpf (0-5) Urine Epithelial Cells Few/hpf (NONE-MOD) Urine Crystals None seen (NONE SEEN) Urine Bacteria Moderate/hpf (NONE-FEW) Urine Hyaline Casts None/lpf (NONE) Urine Granular Casts None seen (NONE SEEN) Urine Waxy Casts None seen (NONE SEEN) Urine Red Blood Cell Casts None seen (NONE SEEN) Urine White Blood Cell Casts None seen (NONE SEEN) Urine Mucus Present (None Seen) Urine Trichomonas None seen (NONE SEEN) Urine Yeast None (NONE SEEN) Urinalysis Comment None Urine Culture Reflexed Indicated CA 125 Antigen 83.0U/mL (0.0-38.1) Test 11/02/16 09:50 11/04/16 05:44 Hematology Comments Rbc Prothrombin Time 11.2sec (8.1-12.5) Prothromb Time International Ratio 1.05ratio Total Bilirubin 0.4mg/dL (0.0-1.2) Aspartate Amino Transf (AST/SGOT) 45U/L (0-50) Alanine Aminotransferase (ALT/SGPT) 65U/L (0-32) Alkaline Phosphatase 117U/L (25-165) Total Protein 5.5g/dL (6.4-8.4) Albumin 2.9g/dL (3.4-5.0) White Blood Count 3.5th/mm3 (3.8-10.1) Red Blood Count 2.74mil/mm3 (3.90-5.20) Hemoglobin 10.0g/dL (12.0-15.6) Hematocrit 29.5% (35.0-46.0) Mean Corpuscular Volume 107.7fL (81-100) Mean Corpuscular Hemoglobin 36.5pg (27.0-35.0) Mean Corpuscular Hemoglobin Concent 33.9% (32.0-37.0) Red Cell Distribution Width 12.5% (12.3-15.4) Platelet Count 82bil/L (150-400) Neutrophils (%) (Auto) 64.0% (40-74) Lymphocytes (%) (Auto) 22.7% (14-46) Monocytes (%) (Auto) 11.0% (4-12) Eosinophils (%) (Auto) 1.4% (0-5) Basophils (%) (Auto) 0.3% (0-3) Sodium Level 138mEq/L (134-144) Potassium Level 3.2mEq/L (3.5-5.2) Chloride Level 101mEq/L (97-108) Carbon Dioxide Level 27mmol/L (18-29) Blood Urea Nitrogen 5mg/dL (8-27) Creatinine 0.50mg/dL (0.57-1.00) Estimat Glomerular Filtration Rate 179mL/min (>59) Glucose Level 135mg/dL (60-99) Calcium Level 8.3mg/dL (8.5-10.1) Magnesium Level 1.5mg/dL (1.6-2.6) Discharge Medications Discharge Medications Ascorbic Acid (Vitamin C) 250 Mg Tab.chew 1,000 MG PO QAM (Reported) Aspirin (Aspirin) 81 Mg Tablet 81 MG PO QAM (Reported) Cholecalciferol (Vitamin D3) (Vitamin D) 1,000 Unit Tablet 2,000 UNIT PO QAM ( Reported) Levothyroxine (Levoxyl) 112 Mcg Tablet 112 MCG PO QAM (Reported) Metoprolol Succinate ER (Metoprolol Succinate ER) 25 Mg Tab.er.24h 25 MG PO QAM (Reported) Pantoprazole DR (Pantoprazole DR) 20 Mg Tablet.dr 20 MG PO BID Prescribed by: THAO ELAINE DO Pyridoxine (Vitamin B-6) 50 Mg Tablet 100 MG PO QAM (Reported) As needed Acetaminophen (Acetaminophen) 325 Mg Tablet 650 MG PO Q4H PRN PRN For Pain ( Reported) oxyCODONE (oxyCODONE) 5 Mg Tablet 5-10 MG PO Q4H PRN PRN For Moderate Pain Prescribed by: DONNIE LOPEZ MD Followup Plan Discharge Diet: No restrictions Discharge Activity: No restrictions Follow-up Provider: Mellisa Dhillon Follow-up with PCP in: 1 week Provider: Hardik Zambrano MD Follow-up in: 1 week Time spent 45 minutes Raf Lopez MD November 05, 2016 11:14
== END 2016-11-05 14:10 | disposition home health service (06) | DRG 329 ==
LOC: SED 16:34 → INTOOBSV 20:20 → MOC 20:20 → OBSVTOIN 20:20 → MOC 21:13 → OSC 11-02 18:09
PROVIDERS: ADMIT Internal Medicine; ATTEND Internal Medicine
PROC: 0DJD8ZZ Inspection of Lower Intestinal Tract, Via Natural or Artificial Opening Endoscopic (ICD-10-PCS; 2016-10-31)
PROC: 0W9G4ZZ Drainage of Peritoneal Cavity, Percutaneous Endoscopic Approach (ICD-10-PCS; 2016-11-02)
PROC: 0D1L4Z4 Bypass Transverse Colon to Cutaneous, Percutaneous Endoscopic Approach (ICD-10-PCS; principal; 2016-11-02 07:30)
DX: K56.69 Other intestinal obstruction (principal); D61.810 Antineoplastic chemotherapy induced pancytopenia; C78.7 Secondary malignant neoplasm of liver and intrahepatic bile duct; C78.89 Secondary malignant neoplasm of other digestive organs; C78.6 Secondary malignant neoplasm of retroperitoneum and peritoneum; R18.8 Other ascites; I10 Essential (primary) hypertension; E03.9 Hypothyroidism, unspecified; C55 Malignant neoplasm of uterus, part unspecified; R74.0 Nonspecific elevation of levels of transaminase and lactic acid dehydrogenase [LDH]; D53.9 Nutritional anemia, unspecified; T45.1X5A Adverse effect of antineoplastic and immunosuppressive drugs, initial encounter

== ENCOUNTER 2016-12-16 21:38 | Emergency (ER) | payer OTHER ==
[~2016-12-16] VITALS: Ht 162.6 cm; Wt 53.2 kg
[~2016-12-16 21:38] MED LIST changes: +ACET325T51 PO; +ASCO250T7 PO; -LACT10SO60 PO; -OLAN5TAB PO; -OMEP20TA86 PO; +OXYC5TAB72 PO; -VITAMIN C GUMMY PO
[2016-12-16 21:41] VITALS: BP 167/89; PULSE 71; RESP 18; O2SAT 100
--- NOTE | 2016-12-16 22:10 | ED.REPORT ---
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 Attempts at and inserting stents were unsuccessful and the obstruction could not be transversed. The decision was made to proceed with a palliative loop colostomy. On 11/02/2016 she had a laparoscopic loop transverse colostomy by Dr. Hardik Zambrano. Last night at 20: 00 it became extremely edematous, with red fluid in the stoma bag, and she was unable to keep a pouching system on. She went to the wound care center today where they tried to put sugar on it to shrink it unsuccessfully. She denies abdominal pain, nausea, vomiting and was able to have a BM today. She last ate at 17:00 today. Nursing Notes Stated Complaint: STOMA Chief Complaint: General Complaint Nursing Notes Reviewed: Yes Allergies: Coded Allergies: magnesium sulfate (Verified Allergy, Severe, VOMITING, 09/13/16) potassium (Verified Allergy, Severe, VOMITING, 09/13/16) Scheduled Ascorbic Acid (Vitamin C) 250 Mg Tab.chew 1,000 MG PO QAM Aspirin (Aspirin) 81 Mg Tablet 81 MG PO QAM Cholecalciferol (Vitamin D3) (Vitamin D) 1,000 Unit Tablet 2,000 UNIT PO QAM Levothyroxine (Levoxyl) 112 Mcg Tablet 112 MCG PO QAM Metoprolol Succinate ER (Metoprolol Succinate ER) 25 Mg Tab.er.24h 25 MG PO QAM Pantoprazole DR (Pantoprazole DR) 20 Mg Tablet.dr 20 MG PO BID Pyridoxine (Vitamin B-6) 50 Mg Tablet 100 MG PO QAM Scheduled PRN Acetaminophen (Acetaminophen) 325 Mg Tablet 650 MG PO Q4H PRN PRN For Pain oxyCODONE (oxyCODONE) 5 Mg Tablet 5-10 MG PO Q4H PRN PRN For Moderate Pain General Time Seen by MD: 22:04 Chief Complaint Other (stoma) Hx Obtained From: Patient Arrived By: Walk-in Sudden in Onset?: No Onset Occurred: Yesterday Symptom Duration: Since onset Severity: Current: No pain currently Severity: Maximum: No pain Recent Healthcare: Recent doctor visit Past Medical History Past Medical History Notes: oncologist: Serafin Buchanan Seen yesterday by oncologist and in ED, had CT scan last night Past Medical History 1. 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 Hypothyroidism. 3. Hypertension. 4. Diastolic heart failure with her last echocardiogram dated July 26, 2016 reporting an EF of 65%-70% which is unchanged. 5. Heart murmur 6. Cardiomyopathy 7. DVT legs 1974 8. Hiatal hernia 9. Hx bowel obstruction s/p colostomy and stoma Past Surgical History Appendectomy Hysterectomy Biopsies Colostomy and stoma placement Smoking History Never Smoker Social History Other Social History: Good social support, Ambulatory Status Independent Review of Systems +prolapsed stoma Full Review of Systems Constitutional: Denies: Chills, Fever GI: Denies: Abdominal pain, Constipation, Diarrhea, Nausea, Vomiting Complete sys rev & neg: except as marked. Physical Exam Vital Signs Vital Signs Date Time Temp Pulse Resp B/P Pulse Ox O2 Delivery O2 Flow Rate FiO2 12/16/16 21:41 36.7 71 18 167/89 100 Room Air Initial VS: Reviewed, Vital signs abnormal Head / Eyes: Atraumatic, Normocephalic, PERRL ENT: Mucous membranes moist, Conjunctiva normal, No scleral icterus Neck: Supple, Full range of motion Respiratory: Breath sounds normal, Clear to auscultation, No respiratory distress Cardiovascular: Regular rate & rhythm, Heart sounds normal, Intact distal pulses Extremities: Vascular intact, Neuro intact, No swelling Skin: Warm, Dry, No cyanosis Neurologic: Alert, Oriented, Nonfocal Psychiatric: Mood/affect normal, Behavior normal, Normal thought content General/Constitutional: Awake, Alert, No acute distress, Well appearing, Cooperative, Not toxic appearing Abdomen: Atraumatic, Soft, No guarding, No rebound Hettinger sized mass of bowel protruding out of stoma Passing stool Re-Eval/Medical Decision Med Decision/Clinical Course Prolapse reduced by Dr Murcia. Does not require further change in management. Time of Eval: 22:53 Re-Evaluation/Progress Note: Colostomy was reduced by surgeon. Informed pt of plan for treatment. Pt understands and agrees with plan for treatment. F/U instructions and RTER warnings given. All questions addressed. Consultation : Referral / Consult Name: Aníbal Murcia MD Consulted With: Surgeon Call Returned at: 22:16 Wafer Cleaner: Will see patient, Agrees with eval, Agrees with plan Note: Recommends use sugar to shrink. Saw patient in the ED and reduced it. Counseled Regarding: Diagnosis, Lab results, Need for follow-up, When/why to return to ED Discharge & Departure Primary Impression: Colostomy prolapse Disposition: Home Discharge Condition All VS Reviewed: Yes Condition: Improved Additional Instructions: Prolapse was reduced in the emergency department. Continue previous home care return if you have recurrent prolapse. Follow-up with Dr. Zambrano call next week. Referrals: Hardik Zambrano MD Attestation Portions of this note were transcribed by Taco Royal. I, Dr. Atkins personally performed the history, physical exam and medical decision-making; I reviewed and confirmed the accuracy of the information in the transcribed note. Signed by Emily Sanders, 12/16/16 - [id number] copies to: Mellisa Dhillon; Hardik Zambrano MD, Donald L MD Dec 16, 2016 22:10 TACO ROYAL Dec 16, 2016 22:19
== END 2016-12-16 23:14 | disposition home or self-care (01) ==
LOC: SED 21:38
DX: K94.00 Colostomy complication, unspecified (principal); I10 Essential (primary) hypertension; E03.9 Hypothyroidism, unspecified; Z90.710 Acquired absence of both cervix and uterus; I50.30 Unspecified diastolic (congestive) heart failure; C55 Malignant neoplasm of uterus, part unspecified; Z79.82 Long term (current) use of aspirin; Z88.8 Allergy status to other drugs, medicaments and biological substances

== ENCOUNTER 2016-12-23 10:23 | Inpatient (IN) | payer OTHER ==
[~2016-12-23] VITALS: Ht 162.6 cm; Wt 56.1 kg
[2016-12-23] VITALS (10 sets, daily range): BP systolic 132–163; BP diastolic 63–88; PULSE 60–82; RESP 9–20; O2SAT 98–100
[2016-12-23] MEDS: Lactated Ringer's 1,000 ML IV SCH ×4 (05:00→16:04)
[~2016-12-23 10:23] MED LIST changes: +Cefotetan Inj 2,000 MG in IV Premix 1 EACH IV ONE
[2016-12-23] MEDS ORDERED: MetoCLOpramide 5 mg/mL 2 mL Inj ONE (10:24)
[2016-12-23] MEDS ORDERED: fentaNYL-PF 50 mCg/mL 2 mL Inj ONE (10:24)
[2016-12-23] MEDS ORDERED: Ondansetron 2 mg/mL 2 mL Inj ONE (10:24)
[2016-12-23] MEDS ORDERED: Rocuronium 10 mg/mL 5 mL Inj ONE (10:24)
[2016-12-23] MEDS ORDERED: Dexamethasone 4 mg/mL Inj ONE (10:24)
[2016-12-23] MEDS ORDERED: Propofol 10,000 mCg/mL 20 mL Inj ONE (10:24)
[2016-12-23] MEDS ORDERED: EPHEDrine/NS 5 mg/mL 5 mL Syringe ONE (10:24)
[2016-12-23] MEDS ORDERED: Bupivacaine-MPF 0.5% 30 mL Inj INFILTRATE ONE (11:58)
[2016-12-23] MEDS ORDERED: Lactated Ringer's 1,000 ML IV ONE (14:34)
[2016-12-23] MEDS ORDERED: Lactated Ringer's 1,000 ML IV SCH (14:39)
[2016-12-23] MEDS ORDERED: Lactated Ringer's 500 ML IV PRN (14:39)
[2016-12-23] MEDS ORDERED: MetoCLOpramide 5 mg/mL 2 mL Inj IVPUSH PRN ×2 (14:40→15:05)
[2016-12-23] MEDS ORDERED: Ondansetron 2 mg/mL 2 mL Inj IVPUSH PRN ×2 (14:40→15:05)
[2016-12-23] MEDS ORDERED: Dexamethasone 4 mg/mL Inj IVPUSH PRN (14:40)
[2016-12-23] MEDS ORDERED: Phenylephrine 10,000 mCg/mL Inj IVPUSH PRN (14:40)
[2016-12-23] MEDS ORDERED: EPHEDrine Sulfate 50 mg/mL Inj IVPUSH PRN (14:40)
[2016-12-23] MEDS ORDERED: fentaNYL-PF 50 mCg/mL 2 mL Inj IVPUSH PRN (14:40)
[2016-12-23] MEDS ORDERED: HYDROmorphone 1 mg/mL Inj IVPUSH PRN ×2 (14:40→15:50)
--- NOTE | 2016-12-23 14:42 | PCM.HPANE ---
Patient Data Surgeon Admitting Provider: Attending Provider:Aníbal Murcia MD Primary Care Physician:Mellisa Dhillon Other Provider:Sarabjit Adamson Anesthesia Reason for Visit Intestinal Stoma Prolapse Ht/WT & BMI Height (Feet): 5 Height (Inches): 3.5 Weight (Kilograms): 54.43 Body Mass Index 20.00 Allergies Coded Allergies: magnesium sulfate (Verified Allergy, Severe, VOMITING, 12/23/16) potassium (Verified Allergy, Severe, VOMITING, 12/23/16) sodium sulfate (Verified Allergy, Unknown, unknown, 12/23/16) Past Anesthesia History Anesthesia History: Denies:: Abnormal Airway, Anesthesia Reactions, Difficult Intubation, Fam Anesthesia Reaction, Fam Malignant Hypertherm, Malignant Hyperthermia Diabetes History Hx Diabetes?: No MRSA MRSA: No Medications Blood Thinner: Aspirin Home Meds Incl Beta Bob: Yes (METOPROLOL) Active Scripts Pantoprazole DR 20 Mg Tablet.dr20 Mg PO BID #60 TAB Prov:Mel Prater DO 09/14/16 Reported Medications Acetaminophen 325 Mg [id number] Mg PO Q4H PRN For Pain Ref 0 10/27/16 Ascorbic Acid (Vitamin C)250 Mg Tab.chew1,000 Mg PO QAM 30 Days Ref 0 10/27/16 Pyridoxine (Vitamin B-6)50 Mg [id number] Mg PO QAM 10/02/15 Aspirin 81 Mg Wqnirr03 Mg PO QAM Ref 0 10/02/15 Cholecalciferol (Vitamin D3) (Vitamin D)1,000 Unit Tablet2,000 Unit PO QAM Ref 0 09/23/15 Metoprolol Succinate ER 25 Mg Tab.er.24h25 Mg PO QAM 30 Days Ref 0 08/21/14 Levothyroxine (Levoxyl)112 Mcg Vcirhq911 Mcg PO QAM 30 Days Ref 0 08/21/14 Discontinued Scripts oxyCODONE 5 Mg Tablet5-10 Mg PO Q4H PRN For Moderate Pain #30 TABLET Prov:Raf Lopez MD 11/05/16 History History of ENT Problems?: Yes HEENT History: Positive for:: Cataracts (2015 surgery) Denies:: Abnormal Airway Difficult Intubation Dysphagia Hearing Problem Sinus Problem Denture Type: None Teeth Condition: Tooth Decay Hx of Heart Problems?: Yes Cardiovascular History: Positive for:: Abdominal Aortic Aneurism (ASCENDING AORTA MILDLY ENLARGED) Cardiac Surgery (HEART CATH 02/2012 (NEG)) Chest Pain (2011 "stress related") Congestive Heart Failure (CARDIOMYOPATHY) Heart Murmur (HARSH GR II/ JIMY @ [facility] ECHO 08/2016 EF 60-65%) Hypertension Thrombophlebitis (DVT LEGS AFTER DELIVERY 1973) Valvular Heart Disease (MILD-MOD AORTIC REGURG ) Denies:: AICD Atrial Fibrillation Edema Irregular Heartbeat Pacemaker Other Cardiac History: HX ANEMIA Hx of Respiratory Problem?: No Respiratory History: Denies:: Asthma COPD Chest Surgery Cough Dyspnea Emphysema Hemoptysis Pneumonia Tuberculosis Use of C-PAP Machine Hx Neurologic Problems?: Yes Neurological History: Positive for:: Dizziness (vertigo 2015) Denies:: Alzheimer's Disease CVA Dementia Parkinson's Disease Seizures Hx of GI Problems?: Yes Other GI Pertinent History: S/P APPY, BOWEL RESECTION/COLOSTOMY FOR OBSTRUCTION COLOSTOMY PROLAPSE=CURRENT PROBLEM Hx of Problems?: Yes Genitourinary History: Positive for:: Urinary Tract Infection (HX OF) Denies:: HX of Hemodialysis Kidney Stones HX of Peritoneal Dialysis: No Female Hx: Denies:: Currently (S/P BTL,D&C/MYOMECTOMY) Endometriosis Pelvic Inflammatory Problems with Breasts? Skin History: Denies:: History Skin Disorders? Pressure Ulcers Hx Musculoskeletal Problems?: No Musculoskeletal History: Positive for:: Musculoskeletal Trauma Denies:: Back Injury Joint Replacement Hx of Psycho/Social Problems?: No Psycho Social History: Denies:: Anxiety Bipolar Disorder Hx Depression Suicide Attempt Hx Surgeries?: Yes (BOWEL RESECTION/COLOSTOMY,HEART CATH,APPY,HYST,BTL,D&C/ MYOMECTOMY,CATARACTS) Hx Any Other Health Problems?: Yes Other History: Positive for:: Cancer (UTERINE/ENDOMETRIAL) Hospitalization (07/2016) Thyroid Disease (S/P THYROIDECTOMY) Denies:: Endocrine Disease History Blood Transfusions: Denies:: Blood Transfuse Reaction Blood Transfusions Hx Diabetes: No Hx Alcohol Use: NoHx Substance Use: No Smoking Status: Never Smoker Have You Smoked inLast 12 mo: No Stop/Bang S-Snoring: Do You Snore Loudly: No T-Tired: feel tired, fatigued: No O-Obsered: Observed not breath: No P-Blood Pressure: treated: Yes B- Body Mass Index > 35 kg/m2: No A- Age over 50: Yes N- Neck Large Circumference: No G- Gender Male: No HAYDE Total Score: 2 Risk Assessment Category Category 1A: Patient has history of documented sleep apnea, and HAS NOT received any narcotic, sedative or anesthesia administration during this stay. Category 1B: Patient has history of documented sleep apnea, and HAS received any narcotic , sedative or anesthesia administration during this stay Category 2: Patient has SUSPECTED Obstructive Sleep Apnea, and HAS received any narcotic , sedative or anesthesia administration during this stay. Category 3: Patient has SUSPECTED Obstructive Sleep Apnea and HAS NOT received narcotic, sedative or anesthesia administration during this stay. Category 4: Outpatient in Procedural Areas with known sleep apnea or who screen positive for High Risk via the STOP/BANG questionnaire. Exam Exam General Appearance: Alert, Oriented X3, Cooperative, No Acute Distress HEENT/AIRWAY: MP 2 Lungs: Clear to Auscultation Heart: Exam Unremarkable Plan Impression Patient chart reviewed, patient interviewed and anesthestic plan with risks, benefits, and alternatives discussed, and informed consent obtained. ASA Physical Status: ASA3 Severe Disease Anesthetic Plan: GA Bene/Risks/Altern/Consents: Yes HP Complete Prior to Induction: Yes Misael Abarca MD Dec 23, 2016 07:41
--- NOTE | 2016-12-23 15:04 | PCM.ANEP1 ---
Post Anesthesia PACU Phase 1 Assessment Vital Signs Vital Signs Date Time Temp Pulse Resp B/P Pulse Ox O2 Delivery O2 Flow Rate FiO2 12/23/16 14:55 36.4 63 9 156/75 100 Simple Mask 8 12/23/16 10:54 36.1 72 14 132/67 100 Room Air Anesthetic Administered: GA Level of Alertness: Sleeping, hard to arouse ESTRADA's with Equal Strength: Yes Pain: No Nausea or Vomiting: No CV Function & Hydration Stable: Yes Airway Device: Oxygen Delivery: Simple Mask Lungs: Clear to Auscultation Dermatome Level: Full Sensation PACU Phase 2 Assessment Complications: No Patient Instructions Provided: N/A Miseal Abarca MD Dec 23, 2016 15:04
[2016-12-23] MEDS ORDERED: Polyethylene Glycol (PEG) 17 Gm Powder PO PRN (15:05)
[2016-12-23] MEDS ORDERED: HYDROmorphone PCA 0.2 mg/mL 30 mL Inj IV PRN (15:05)
--- NOTE | 2016-12-23 15:14 | PCM.SURGPO ---
Immediate Operative Note Date of Surgery: Dec 23, 2016 Pre Operative Diagnosis Recurrent prolapse of loop transverse colostomy Post Operative Diagnosis Recurrent prolapse of loop transverse colostomy Procedure Resection of loop transverse colostomy, end transverse colostomy and mucus fistula Surgeon and Insulation Installer Surgeon: Aníbal Murcia MD Assistants: Rodriguez Black MD Findings Fascial opening partitioned and distal bowel converted in to a small mucus fistula Complications There were no periprocedural complications identified. Surgical Specimen Removed: Yes Specimen sent to Pathology: Yes Anesthetic Administered: GA Grafts, Implants: None Output, Estimated Blood Loss: 10 Blood Admin during surgery: No Attending Statement Federal Appellate Law Clerk listed was medically necessary for the successful completion of the case Aníbal Murcia MD Dec 23, 2016 15:14
[2016-12-23] MEDS: Acetaminophen IV 1,000 MG in IV Premix 1 EACH IV SCH ×2 (15:30→22:51)
--- NOTE | 2016-12-23 16:04 | NUR ---
Post op: Pt to floor at approx 1600. Pt alert and oriented, and able to answer all questions. Able to transfer to bed independently. Ostomy c/d/i. Iv fluids running. Pt briefed on room by leasing coordinator. Minimal pain reported. Pt given warm blankets for some shaking/chills.
[2016-12-23] MEDS: Pantoprazole 20 mg ER24 Tablet PO SCH (17:40)
[2016-12-23] MEDS: Heparin 5,000 Unit/mL Inj SUBQ SCH (17:40)
--- NOTE | 2016-12-23 18:44 | OP ---
[address] [address] OPERATIVE REPORT PATIENT: ENRIQUETA MORROW : 1955 MR#: [id number] ADMIT: 12/23/2016 JOB ID: [id number] DATE OF SURGERY: 12/23/2016 PREOPERATIVE DIAGNOSIS(ES): Recurrent prolapse of loop transverse colostomy. POSTOPERATIVE DIAGNOSIS(ES): Recurrent prolapse of loop transverse colostomy. PROCEDURE PERFORMED: Resection of loop transverse colostomy with end-transverse colostomy and mucous fistula. SURGEON: Aníbal Murcia MD. COMPLIANCE PROJECT MANAGER: Rodriguez Black MD. COMPLICATIONS: None. ESTIMATED BLOOD LOSS: 10 mL. INDICATIONS: The patient is a 61-year-old lady with stage IV recurrent uterine carcinosarcoma who developed obstruction of the sigmoid colon. The attempted placement of a palliative stent was not successful and Dr. Hardik Zambrano performed a laparoscopy with loop transverse colostomy on November 02, 2016. She did relatively well until December 16, 2016, when she presented to [facility] with a prolapsed stoma. We were able to reduce it, but she continued to have recurrent episodes and after discussing the risks, benefits, and alternatives, she is here today for revision of the stoma to take care of the problem. PROCEDURE DETAILS: She was placed in supine position. Underwent smooth induction of general anesthesia. Had a Gamboa catheter placed. The stoma appliance was removed and we packed the proximal transverse colon with Betadine-soaked gauze. After that, we prepped and draped the abdomen in the usual sterile fashion. We gave her preoperative antibiotics and performed a surgical time-out using the safety checklist and all were in agreement. I first began by placing circumferential traction sutures all around the stoma and placed them in a clamp to obtain uniform traction circumferentially. Then, I made an elliptical incision using needlepoint electrocautery and divided the skin and subcutaneous tissue, taking this dissection down all the way down to the fascia. I then carefully dissected the muscle and the fascia of the bowel, completely freeing both the distal and proximal limbs of the loop colostomy. After that, I divided the distal defunctionalized colon and closed two-thirds of the opening with two layers of interrupted sutures using 3-0 Vicryl followed by 3-0 silk. I left a small opening for maturing as a mucous fistula later laterally. I then divided the mesentery with good hemostasis and divided the proximal limb of the colon, amputating a few cm to get down to fresh bowel. I then placed a couple of interrupted 3-0 Vicryl sutures to anchor the proximal colon to the anterior abdominal wall medially to avoid prolapse in the future. I also then placed three brook sutures using 3-0 Vicryl at 9 o'clock, 12 o'clock and 6 o'clock. After that, laying the end transverse colostomy medially and the new mucous fistula laterally, I placed a couple of 0-PDS sutures, bringing the fascia together in between them to narrow the fascial opening. After tying these, I proceeded with maturing the colostomy and the mucous fistula with 3-0 Vicryl sutures. After that, we placed a stoma appliance. Patient had her Gamboa catheter removed and was recovered from anesthesia and was taken to the recovery room in stable condition. RAYMUNDO
[2016-12-24] VITALS (10 sets, daily range): BP systolic 92–124; BP diastolic 45–72; PULSE 66–81; RESP 16–20; O2SAT 97–99
[2016-12-24] MEDS: Heparin 5,000 Unit/mL Inj SUBQ SCH ×3 (00:59→16:49)
[2016-12-24] MEDS: Lactated Ringer's 1,000 ML IV SCH ×3 (01:02→21:02)
--- NOTE | 2016-12-24 03:29 | NUR ---
Ambulate/Pain Patient OOB to restroom SBA, steady gait. Colostomy seal unattached in some spots, colostomy cart brought up. when returned to room to change bag patient asleep and not interested in the change at this time. Patient familiar and confident with colostomy care. Pain management effective at this time. Will continue to monitor.
[2016-12-24] MEDS: Pantoprazole 20 mg ER24 Tablet PO SCH ×2 (08:17→16:49)
[2016-12-24] MEDS: Ascorbic Acid 500 mg Tablet PO SCH (08:17)
[2016-12-24] MEDS: MeTOProlol XL 25 mg ER24 Tablet PO SCH (08:17)
[2016-12-24] MEDS: Acetaminophen IV 1,000 MG in IV Premix 1 EACH IV SCH ×2 (08:45→15:10)
--- NOTE | 2016-12-24 13:48 | NUR ---
Social Work- Screening/Multi-Disciplinary Rounds/ Readiness for Discharge Data: EMR reviewed. Pt is a 61 year old female admitted for intestinal stoma prolapse per H&P. Per multi-disciplinary rounds, pt underwent a colostomy revision. Pt is SBA in room. No social work needs identified in rounds. Pt resides in [place] where she is independent at baseline. PT is likely to discharge tomorrow. Assessment: Pt who is independent with her colostomy. Plan: No social work needs identified at this time. Pt resides in [place] where she is independent at baseline. SW will continue to follow. Nika Evangelista MSW
--- NOTE | 2016-12-24 14:35 | PROG NOTE ---
[address] [address] PROGRESS NOTE PATIENT: ENRIQUETA MORROW : 1955 MR#: [id number] ADMIT: 12/23/2016 JOB ID: [id number] DATE: 12/24/2016 SUBJECTIVE: Postop day one revision of diverting colostomy. She is relatively pain free, using minimal narcotics. OBJECTIVE: Vital signs are within normal limits. On examination, her stoma is pink. They are having some trouble sealing the appliance laterally over the mucous fistula. ASSESSMENT AND PLAN: I reviewed the surgical anatomy with the nurse. We will get her up and walking. She is concerned about leaving without seeing wound care as she does not have any ostomy supplies at home, as well as I believe she is just a bit overwhelmed. We will get her up, moving around, and await return of ostomy function.
--- NOTE | 2016-12-24 17:37 | NUR ---
Activity/Colostomy Pt ambulates hallway with HUMAN RESOURCES OFFICE ASSISTANT using SBA and steady gait and OOB to BR X3 this shift. Ostomy bag changed once by pt in a.m. due to leakage at lateral mucous fistula. Unresolved and ostomy bag was changed additional two more times throughout shift by RN. Currently no signs of leakage. Stoma pink, skin intact and slightly pink from tape previously applied for reinforcement. Wound consult for Monday, pt in need of supplies before discharge.
[2016-12-25] MEDS: Heparin 5,000 Unit/mL Inj SUBQ SCH ×3 (01:18→16:15)
[2016-12-25 01:39] VITALS: RESP 18; O2SAT 98
--- NOTE | 2016-12-25 04:26 | NUR ---
Activity pt states her pain is well controlled at this time. she has been up to the bathroom SBA and tolerating activity. colostomy putting out soft formed stool. pt has performed all ostomy care herself. ostomy appliance has not leaked this shift. bed in low position, call light within reach. hourly rounding continues.
[2016-12-25 04:40] VITALS: BP 98/58; PULSE 79; RESP 18; O2SAT 96
[2016-12-25 05:18] VITALS: RESP 16; O2SAT 98
[2016-12-25] MEDS: Pantoprazole 20 mg ER24 Tablet PO SCH ×2 (08:50→16:14)
[2016-12-25] MEDS: Ascorbic Acid 500 mg Tablet PO SCH (08:51)
[2016-12-25] MEDS: Lactated Ringer's 1,000 ML IV SCH ×2 (08:51→16:29)
[2016-12-25] MEDS: MeTOProlol XL 25 mg ER24 Tablet PO SCH (08:51)
[2016-12-25] MEDS ORDERED: diphenhydrAMINE 25 mg Capsule PO PRN (10:30)
--- NOTE | 2016-12-25 10:33 | NUR ---
Ostomy Patient completing ostomy care independently this AM and has bring in accessories from home so she could modify the appliance she has on now. Stool is soft and mostly liquid with a brown/green color. No leaking so far this shift-continuing to monitor.
[2016-12-25 11:31] VITALS: RESP 16; O2SAT 98
[2016-12-25 13:07] VITALS: BP 104/61; PULSE 71; RESP 16; O2SAT 100
--- NOTE | 2016-12-25 13:26 | NUR ---
Social Work- Multi-Disciplinary Rounds No change from rounds on 12/24/16. No social work needs identified. CASSANDRA Germain
--- NOTE | 2016-12-25 13:48 | PROG NOTE ---
[address] [address] PROGRESS NOTE PATIENT: ENRIQUETA MORROW : 1955 MR#: [id number] ADMIT: 12/23/2016 JOB ID: [id number] DATE: 12/25/2016 NOTE: The patient has remained hemodynamically stable over the past 24 hours. Ostomy has not leaked. She is tolerating p.o., has good stool output. She has remained on IV pain medications and I will stop these and transition her to oral pain medication today with anticipated discharge tomorrow, once we establish that oral pain medication is adequate.
[2016-12-25 21:05] VITALS: BP 100/61; PULSE 64; RESP 18; O2SAT 98
[2016-12-26] MEDS: Heparin 5,000 Unit/mL Inj SUBQ SCH ×2 (00:35→09:33)
[2016-12-26] MEDS: Lactated Ringer's 1,000 ML IV SCH ×2 (03:02→13:02)
--- NOTE | 2016-12-26 03:25 | NUR ---
Pain control pt took 975mg of PO tylenol at 2300 before going to bed. she states her pain is at a 1-2 at rest and tolerable when up walking. she has been sleeping this shift appears comfortable. care continues
[2016-12-26 06:49] VITALS: BP 134/87; PULSE 52; RESP 16; O2SAT 99
[2016-12-26] MEDS ORDERED: Ibuprofen PO (08:33)
[2016-12-26] MEDS ORDERED: Acetaminophen PO (08:33)
--- NOTE | 2016-12-26 08:36 | PCM.DISURG ---
Surgical Discharge Instruction Date of Service Dec 26, 2016 Dates of Hospitalization Date of Hospital Admission Providers Admitting Physician: Primary Care Physician: Mellisa Dhillon Attending Physician: Aníbal Murcia MD Discharge Diagnosis Discharge Diagnosis Recurrent prolapse of loop colostomy s/p Resection of loop transverse colostomy with creation of end transverse colostomy with mucus fistula Diet Discharge Diet: No restrictions Activity Discharge Activity-General: No lifting >15 pounds for 2 weeks Dressing and Incisional Care Dressing Care: Other (Stoma Care) Hygiene: May shower Follow Up Plan Follow Up Plan With Wound Care clinic in a week - With New Murcia MD as needed Follow-up appointment: Weeks (1) Aníbal Murcia MD Dec 26, 2016 08:36
--- NOTE | 2016-12-26 08:39 | PCM.PNSURG ---
Subjective Date of Service: Dec 26, 2016 Visit Information: Reason for Visit Intestinal Stoma Prolapse Surgery/Surgery Date Resection of loop transverse colostomy, creation of end transverse colostomy with mucus fistula 12/23/16 Post-Op Day # 3 Date of Admission: Dec 23, 2016 at 15:41 Hospital Day # 4 Subjective: Feels well, Stoma working Objective Vital Sign- Last 8 Hours Date Time Temp Pulse Resp B/P Pulse Ox O2 Delivery O2 Flow Rate FiO2 12/26/16 06:49 37.0 52 16 134/87 99 Room Air Intake and Output- Last 8 Hour 12/26/16 Cumulative From/Thru 07:00 12/21/16 13:07 - 12/26/16 06:49 Intake Total 250 ml 5643 ml Output Total 450 ml 4070 ml Balance -200 ml 1573 ml Intake Oral 250 ml 3545 ml IV Total 2098 ml Output Urine Total 450 ml 4050 ml Stool Total 0 ml Estimated Blood Loss 20 ml # Voids 3 # Bowel Movements 0 Abdomen: Soft, Other (Stoma with stool) Assessment & Plan Impression Doing well Problems: Plan Discharge home after wound care consult Follow up Aníbal Brooke MD Dec 26, 2016 08:39
[2016-12-26 08:55] VITALS: BP 137/73; PULSE 74; RESP 16; O2SAT 100
[2016-12-26] MEDS: Pantoprazole 20 mg ER24 Tablet PO SCH (09:34)
[2016-12-26] MEDS: MeTOProlol XL 25 mg ER24 Tablet PO SCH (09:34)
[2016-12-26] MEDS: Ascorbic Acid 500 mg Tablet PO SCH (09:34)
--- NOTE | 2016-12-26 11:10 | NUR ---
Social Work: Readiness for Discharge/Multi-Disciplinary Rounds D: EMR reviewed. [place] 1 [place] [facility] [place] prolapse per H&P. Per multi-disciplinary rounds, pt underwent a colostomy revision. Pt is SBA in room. Per ortho, pt is medically stable and likely to discharge today via POV. No social work needs identified in rounds. A: Pt who is independent with her colostomy. P: Per ortho and multi-disciplinary rounds, pt is medically stable and likely to discharge today via POV. No social work needs identified in rounds. SW will continue to follow. CASSANDRA Marsh
[2016-12-26 12:45] VITALS: BP 137/86; PULSE 73; RESP 16; O2SAT 100
--- NOTE | 2016-12-26 14:49 | PCM.DC.SUR ---
Discharge Summary Date of Service: Dec 26, 2016 Date of Hospital Admission: Dec 23, 2016 at 15:41 Date of Operation(s): December 23, 2016 Date of Discharge: December 26, 2016 Brief History and Physical: Ms. 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 She underwent a diverting loop transverse colostomy on 11/02/16. She unfortunately developed recurrent stomal prolapse, for which she requested repair. After a discussion of the risks, benefits, and alternatives, she consented to proceed to the operating room. Hospital Course: On December 23, 2016, the patient underwent uncomplicated takedown of her loop transverse colostomy with resection and creation of end transverse colostomy with mucous fistula. She tolerated the procedure well and recovered uneventfully from general anesthesia in the PACU. Following this she was transferred to the general surgery patel for intensive nursing care and observation. Over the course of the ensuing hospital stay, her diet was systematically reinstituted and her ostomy function resumed. She was evaluated by the wound/ostomy team and fitted with an appropriate bag prior to discharge. She maintained normal and spontaneous bladder function, was tolerant of ambulation, and remained hemodynamically normal throughout her hospitalization. She was given strict return precautions and follow up was established. By the date of discharge she had met or exceeded all criteria for a safe discharge to home. Disposition: Home ([Ibuprofen]) 200 MG TABLET 200 MG PO QID PRN PRN For Pain ([Acetaminophen]) 325 MG TABLET 975 MG PO Q6H PRN PRN For Mild Pain or Fever Acetaminophen (Acetaminophen) 325 Mg Tablet 650 MG PO Q4H PRN PRN For Pain ( Reported) Ascorbic Acid (Vitamin C) 250 Mg Tab.chew 1,000 MG PO QAM (Reported) Aspirin (Aspirin) 81 Mg Tablet 81 MG PO QAM (Reported) Cholecalciferol (Vitamin D3) (Vitamin D) 1,000 Unit Tablet 2,000 UNIT PO QAM ( Reported) Levothyroxine (Levoxyl) 112 Mcg Tablet 112 MCG PO QAM (Reported) Metoprolol Succinate ER (Metoprolol Succinate ER) 25 Mg Tab.er.24h 25 MG PO QAM (Reported) Pantoprazole DR (Pantoprazole DR) 20 Mg Tablet.dr 20 MG PO BID Pyridoxine (Vitamin B-6) 50 Mg Tablet 100 MG PO QAM (Reported) Garbus,Rodriguez J MD Dec 26, 2016 14:49
--- NOTE | 2016-12-26 14:58 | NUR ---
Discharge Pt to discharge to home today with her ; A&Ox3, VSS, ind in room, steady gait. Pt given written and verbal instructions for discharge with Rx's in hand, pt states understanding of times and dosages of all medications to be taken. Care Notes given for Colostomy Care, Ibuprofen and Acetaminophen given. 1 IV access discontinued and all pt's personal belongings with patient and at time of discharge. Pt states understanding to f/u with Dr Murcia in 1 week and appt with [facility] on January 02, 2017 at 2pm. Pt wheeled off unit by hernan.
--- NOTE | 2016-12-26 17:13 | NUR ---
Wound note Patient seen for ostomy teaching, flat70 MM oval flat moldable Convatec appliance was placed after Eakins seal was used to fill folds in abdomen. Patient with relatively healthy stoma after Resection of loop transverse colostomy with end-transverse colostomy and mucous fistula on 12/[address] Murcia. Patient does have experience with management of her ostomy and is provided with supplies to get her through till she see the WOCN at the wound center on 01/02.
--- NOTE | 2016-12-29 09:31 | PATH ---
SURGICAL PATHOLOGY Attending Physician:Aníbal Murcia MD CASE STATUS: Signed Out PATIENT NAME: ENRIQUETA MORROW PID: [id number] : 1955 DATE COLLECTED:12/23/2016 00:00 SPECIMEN: Colon, Colostomy Stoma CLINICAL HISTORY: RECURRENT STOMA PROLAPSE 1). LOOP TRANSVERSE COLOSTOMY FINAL DIAGNOSIS: 1.LOOP TRANSVERSE COLOSTOMY: COLOSTOMY STOMA TISSUE WITH FOCAL MUCOSAL ULCERATION. NO EVIDENCE OF MALIGNANCY. ICD10 Z43.3 GROSS DESCRIPTION: the specimen is received in formalin, labeled with the patient's name, sublabeled as looped transverse colostomy, and consists of a u-shaped segment of colon (length-5.8 cm, resection margin #1 diameter-2.5 cm, resection margin #2 diameter-3.5 cm) attached to a stoma (2.5 x 1.5 cm) encircled by a rim of skin (up to 1.1 cm thick). The resection margins are received open. The mucosa is rahman smooth and shiny with normal folds. The skin is rahman-de dios smooth shiny and unremarkable. No nodules, masses or lesions are identified. Ink code: black-resection margin. Section code: (A) resection margin #1 with stoma, longitudinally sectioned, call center support representative; (B) resection margin #2 with stoma, longitudinally sectioned, call center support representative; (C, D) colon segment, serially sectioned, call center support representative. 12/24/16 JM MICRO DESCRIPTION: See diagnosis. ICD-9 CODES: CPT CODES: 1: 17263 Electronically Signed Out Alison Lyles MD [facility] [address], [place] [address] Technical component performed at [facility], [address] [place] [address] Ave[address], [place], [address]
== END 2016-12-26 15:12 | disposition home or self-care (01) | DRG 330 ==
LOC: SAS 10:23 → OSC 15:41 → SAS 15:41
PROVIDERS: ADMIT Student in an Organized Health Care Education/Training Program; ATTEND Student in an Organized Health Care Education/Training Program
PROC: 0D1L0Z4 Bypass Transverse Colon to Cutaneous, Open Approach (ICD-10-PCS; principal; 2016-12-23 12:15)
DX: K94.19 Other complications of enterostomy (principal); I42.9 Cardiomyopathy, unspecified; Z79.82 Long term (current) use of aspirin; I10 Essential (primary) hypertension; E03.9 Hypothyroidism, unspecified; Z85.42 Personal history of malignant neoplasm of other parts of uterus

== ENCOUNTER 2017-01-28 13:45 | Emergency (ER) | payer OTHER ==
[~2017-01-28] VITALS: Ht 161.3 cm; Wt 52.7 kg
[~2017-01-28 13:45] MED LIST changes: -Cefotetan Inj 2,000 MG in IV Premix 1 EACH IV ONE; +Ibuprofen PO; -OXYC5TAB72 PO
[2017-01-28 13:48] VITALS: BP 152/84; PULSE 75; RESP 16; O2SAT 99
--- NOTE | 2017-01-28 13:58 | ED.REPORT ---
HPI-Abd Pain F 40 and Over Date of Service Jan 28, 2017 ED Provider: Dr. Andrew Pt is a 61 year old female with a colostomy who presents to the ED with concerns for a prolapsed stoma. She reports that she has had three occasions where this would occur. She denies any significant abdominal pain, nausea, vomiting, fevers or any other symptoms. Nursing Notes Stated Complaint: PROLAPSE STOMA Chief Complaint: Female Abdominal Pain Nursing Notes Reviewed: Yes Allergies: Coded Allergies: magnesium sulfate (Verified Allergy, Severe, VOMITING, 01/28/17) potassium (Verified Allergy, Severe, VOMITING, 01/28/17) sodium sulfate (Verified Allergy, Unknown, unknown, 01/28/17) Scheduled Ascorbic Acid (Vitamin C) 250 Mg Tab.chew 1,000 MG PO QAM Aspirin (Aspirin) 81 Mg Tablet 81 MG PO QAM Cholecalciferol (Vitamin D3) (Vitamin D) 1,000 Unit Tablet 2,000 UNIT PO QAM Levothyroxine (Levoxyl) 112 Mcg Tablet 112 MCG PO QAM Metoprolol Succinate ER (Metoprolol Succinate ER) 25 Mg Tab.er.24h 25 MG PO QAM Pantoprazole DR (Pantoprazole DR) 20 Mg Tablet.dr 20 MG PO BID Pyridoxine (Vitamin B-6) 50 Mg Tablet 100 MG PO QAM Scheduled PRN ([Ibuprofen]) 200 MG TABLET 200 MG PO QID PRN PRN For Pain Acetaminophen (Acetaminophen) 325 Mg Tablet 650 MG PO Q4H PRN PRN For Pain General Time Seen by MD: 13:57 Chief Complaint Other (Prolapsed stoma) Hx Obtained From: Patient Arrived By: Walk-in Sudden in Onset?: Yes Onset Occurred: 3 days ago Symptom Duration: Since onset Location: : Diffuse Severity: Current: No pain currently Severity: Maximum: Mild Similar Sx Previous: Yes Past Medical History Past Medical History Notes: oncologist: Serafin Buchanan Seen yesterday by oncologist and in ED, had CT scan last night Past Medical History 1. 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 Hypothyroidism. 3. Hypertension. 4. Diastolic heart failure with her last echocardiogram dated July 26, 2016 reporting an EF of 65%-70% which is unchanged. 5. Heart murmur 6. Cardiomyopathy 7. DVT legs 1974 8. Hiatal hernia 9. Hx bowel obstruction s/p colostomy and stoma Past Surgical History Appendectomy Hysterectomy Biopsies Colostomy and stoma placement Smoking History Never Smoker Social History Other Social History: Good social support, Ambulatory Status Independent Review of Systems Constitutional: Denies: Chills, Fever, Malaise, Weakness - generalized Respiratory: Denies: Shortness of breath, Wheezing Cardiovascular: Denies: Chest pain, Syncope GI: Denies: Abdominal pain, Constipation, Diarrhea, Nausea, Vomiting Female: Denies: Flank pain, Urinary frequency, Urinary urgency Musculoskeletal: Denies: Back pain, Extremity pain, Neck pain Complete sys rev & neg: except as marked. Physical Exam Vital Signs Vital Signs (First) Date Time Temp Pulse Resp B/P Pulse Ox O2 Delivery O2 Flow Rate FiO2 01/28/17 13:48 36.9 75 16 152/84 99 Room Air Initial VS: Reviewed Head / Eyes: Atraumatic, Normocephalic, PERRL ENT: Mucous membranes moist, Conjunctiva normal, No scleral icterus Neck: Supple, Non-tender, Full range of motion Skin: Warm, Dry, No cyanosis Neurologic: Alert, Oriented, Nonfocal General/Constitutional: Awake, Alert Respiratory / Chest: Atraumatic, Breath sounds NL, Breath sounds = bilat, No respiratory distress Cardiovascular: Heart rate NL, Regular rhythm, Heart sounds NL, No gallop, No murmurs, No rubs Abdomen: Soft, Non-tender Largely prolapsed stoma Back: Atraumatic, Inspection NL, Non-tender Re-Eval/Medical Decision Med Decision/Clinical Course Patient is seen by Dr. Laguerre at the house staff and the colon is successfully reduced by them. Source of Hx: Old records Counseled Regarding: Diagnosis, Lab results, When/why to return to ED Discharge & Departure Primary Impression: Colostomy prolapse Disposition: Home Discharge Condition All VS Reviewed: Yes Condition: Stable Additional Instructions: No dangerous condition is suspected. If the colon prolapses from the ostomy in the future, sprinkle sugar over its surface and apply ice. Lay down and try to relax as best you can. Gently apply pressure to the length of the colon to get it to go back inside. If you are not successful, return to the emergency department or call the clinic. Referrals: Mellisa Dhillon (PCP) Scribe Attestation Portions of this note were transcribed by Chinyere Mandujano. IDr. Andrew personally performed the history, physical exam and medical decision-making; I reviewed and confirmed the accuracy of the information in the transcribed note. Signed by: Emily Graf, 01/28/2017 [Time]. copies to: Mellisa Dhillon Kirk H MD Jan 28, 2017 13:58 BRITTANY MANDUJANO Jan 28, 2017 14:01
[2017-01-28 15:53] VITALS: BP 160/95; PULSE 77; O2SAT 100
--- NOTE | 2017-01-28 17:02 | PCM.CONSUR ---
Subjective Date of Service: Jan 28, 2017 History of Present Illness Ms. 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 She underwent a diverting loop transverse colostomy on 11/02/16. She unfortunately developed recurrent stomal prolapse, for which she requested repair. She therefore underwent takedown of her loop transverse colostomy with resection and creation of end transverse colostomy with mucous fistula on December 23, 2016. She recovered well from the surgery and had had no issues with her ostomy until today, noting that it was functioning properly. While gardening earlier this morning, the patient bent over and immediately felt a bulge in her colostomy bag. She noticed that her stoma had prolapsed several inches. She finished her chores and attempted to reduce the stoma but was unable to do so, prompting presentation to the Emergency Department. She believes the amount of prolapse is more significant that episodes prior to her revision. She denies any abdominal pain, nausea, vomiting, fevers, chills or other concerning symptom. Allergy Allergies: Coded Allergies: magnesium sulfate (Verified Allergy, Severe, VOMITING, 01/28/17) potassium (Verified Allergy, Severe, VOMITING, 01/28/17) sodium sulfate (Verified Allergy, Unknown, unknown, 01/28/17) Medications Blood Thinners: Aspirin ([Ibuprofen]) 200 MG TABLET 200 MG PO QID PRN PRN For Pain Prescribed by: BRANDT MURCIA MD Acetaminophen (Acetaminophen) 325 Mg Tablet 650 MG PO Q4H PRN PRN For Pain ( Reported) Ascorbic Acid (Vitamin C) 250 Mg Tab.chew 1,000 MG PO QAM (Reported) Aspirin (Aspirin) 81 Mg Tablet 81 MG PO QAM (Reported) Cholecalciferol (Vitamin D3) (Vitamin D) 1,000 Unit Tablet 2,000 UNIT PO QAM ( Reported) Levothyroxine (Levoxyl) 112 Mcg Tablet 112 MCG PO QAM (Reported) Metoprolol Succinate ER (Metoprolol Succinate ER) 25 Mg Tab.er.24h 25 MG PO QAM (Reported) Pantoprazole DR (Pantoprazole DR) 20 Mg Tablet.dr 20 MG PO BID Prescribed by: THAO ELAINE DO Pyridoxine (Vitamin B-6) 50 Mg Tablet 100 MG PO QAM (Reported) Past Surgical History Surgeries: Yes (BOWEL RESECTION/COLOSTOMY,HEART CATH,APPY,HYST,BTL,D&C/ MYOMECTOMY,CATARACTS) Patient/Family Past Surgical: Denies:: Anesthesia Reactions, Blood Transfuse Reaction, Blood Transfusions, Malignant Hyperthermia Social History Hx Alcohol Use: No Hx Substance Use: No Hx Tobacco Use: No PMH HEENT History History of ENT Problems?: Yes HEENT History: Positive for:: Cataracts (2014 surgery) Denies:: Abnormal Airway Difficult Intubation Dysphagia Hearing Problem Sinus Problem Cardiovascular History History of Heart Problems?: Yes Cardiovascular History: Positive for:: Abdominal Aortic Aneurism (ASCENDING AORTA MILDLY ENLARGED) Cardiac Surgery (HEART CATH 02/2012 (NEG)) Chest Pain (2011 "stress related") Congestive Heart Failure (CARDIOMYOPATHY) Heart Murmur (HARSH GR II/ JIMY @ [facility] ECHO 08/2016 EF 60-65%) Hypertension Thrombophlebitis (DVT LEGS AFTER DELIVERY 1973) Valvular Heart Disease (MILD-MOD AORTIC REGURG ) Denies:: AICD Atrial Fibrillation Edema Irregular Heartbeat Pacemaker Respiratory History of Respiratory Problem: No Respiratory History: Denies:: Asthma COPD Chest Surgery Cough Dyspnea Emphysema Hemoptysis Pneumonia Tuberculosis Use of C-PAP Machine Neurological History Hx Neurologic Problems?: Yes Neurological History: Positive for:: Dizziness (vertigo 2015) Denies:: Alzheimer's Disease CVA Dementia Parkinson's Disease Seizures Gastrointestinal History HX of GI Problems?: Yes Gastrointestinal History: Positive for:: Gastroesphageal Reflux Denies:: Cirrhosis Diverticulitis (DIVERTICULOSIS) Gastrointestinal Bleeding Heartburn Hepatitis Hiatal Hernia Rectal Bleeding Genitourinary History Hx of Gu Problems?: Yes Genitourinary History: Positive for: Urinary Tract Infection (HX OF) Denies: HX of Hemodialysis Kidney Stones Female/Male History Reproductive History Female: Denies: Currently ? (S/P BTL,D&C/ MYOMECTOMY) Endometriosis Pelvic Inflammatory DX Problems with Breasts? Skin History Skin History: Denies:: History Skin Disorders? Pressure Ulcers Musculoskeletal History Hx Musculoskeletal Problems?: No Musculoskeletal History: Positive for:: Musculoskeletal Trauma Denies:: Back Injury Joint Replacement Psycho Social History Hx of Psycho/Social Problems?: No Psycho Social History: Denies:: Anxiety Bipolar Disorder Hx Depression Suicide Attempt Other History Hx Any Other Health Problems?: Yes Other History: Positive for:: Cancer (UTERINE/ENDOMETRIAL) Hospitalization (07/2016) Thyroid Disease (S/P THYROIDECTOMY) Denies:: Endocrine Disease Diabetes: No Social History Hx Alcohol Use: NoHx Substance Use: NoHx Tobacco Use: No Smoking Status: Never Smoker Objective Exam Vital Signs & I/O Vital Sign- Last 8 Hours Date Time Temp Pulse Resp B/P Pulse Ox O2 Delivery O2 Flow Rate FiO2 01/28/17 15:53 36.1 77 160/95 100 Room Air 01/28/17 13:48 36.9 75 16 152/84 99 Room Air Review of Systems: Constitutional: Negative, except as otherwise mentioned in the history above. Ophthalmologic: Negative, except as otherwise mentioned in the history above. Cardiovascular: Negative, except as otherwise mentioned in the history above. Respiratory: Negative, except as otherwise mentioned in the history above. Gastrointestinal: Negative, except as otherwise mentioned in the history above. Genitourinary: Negative, except as otherwise mentioned in the history above. Musculoskeletal: Negative, except as otherwise mentioned in the history above. Neurological: Negative, except as otherwise mentioned in the history above. Psychiatric: Negative, except as otherwise mentioned in the history above. Hematologic/Lymphatic: Negative, except as otherwise mentioned in the history above. Allergic/Immunologic: Negative, except as otherwise mentioned in the history above. H&P Surgical Exam Exam General: Alert, Oriented X3, Cooperative, No Acute Distress HEENT: Within normal limits & unremarkable Neck: Within normal limits & unremarkable Respiratory: Clear to Auscultation Cardiac: Regular Rate/Rhythm Abdomen: Other (Mid abdomen stoma prolapsed approximately 9 cm. Mucosa healthy appearing, no duskiness or sloughing. Abdomen is overall soft, nontender, and nondistended. There is a well healed midline surgical scar. ) Breasts: Not Indicated Pelvic: Not Indicated Assessment & Plan Assessment 61F with an end transverse colostomy which has prolapsed. She is in no acute distress and the ostomy appears viable. This is in the setting of recurrent metastatic uterine carcinoma resulting in a sigmoid obstruction necessitating loop transverse colostomy which was revised on December 23 to an end transverse colostomy with mucous fistula for recurrent prolapse. This the first episode of prolapse since the revision. Plan: With a combination of sugar application, cold compress, and relaxation via administration of ativan, the stomal prolapse was gently reduced with manual pressure at the bedside. The patient tolerated the procedure well and there was no evidence of compromise to the bowel. Following the procedure, her abdominal exam revealed a healthy appearing stoma with adjacent mucous fistula. She has no abdominal tenderness nor subjective discomfort. She will discharged home and will follow up with Dr. Murcia and the wound-ostomy nurses in 2 days. Patient was seen and evaluated with Dr. Laguerre. Attending Statement: I examined this patient, was present during the prolapse reduction, and agree with the note above. MD Sofia Richard Samuel J MD Jan 28, 2017 17:01 Sheridan Laguerre MD Jan 29, 2017 09:17
== END 2017-01-28 15:54 | disposition home or self-care (01) ==
LOC: SED 13:45
DX: K94.09 Other complications of colostomy (principal); E03.9 Hypothyroidism, unspecified; I10 Essential (primary) hypertension; Z88.2 Allergy status to sulfonamides; Z92.21 Personal history of antineoplastic chemotherapy; Z86.718 Personal history of other venous thrombosis and embolism; Z88.8 Allergy status to other drugs, medicaments and biological substances; Z79.82 Long term (current) use of aspirin
CPT/HCPCS: 96374; 99284; J2060

== ENCOUNTER → 2017-03-07 | Day surgery (SDC) | payer OTHER ==
[~2017-03-07] VITALS: Ht 160 cm; Wt 55.6 kg
[2017-03-07] VITALS (14 sets, daily range): BP systolic 67–161; BP diastolic 40–82; PULSE 34–92; RESP 9–16; O2SAT 97–100
[~2017-03-07] MED LIST changes: +ACET-171 PO; -ACET325T51 PO; -ASCO250T7 PO; +Atropine 0.4 mg/mL Inj IVPUSH PRN; +Atropine 1 mg/10 mL (Code) Syringe ONE; +CA C1TAB29 PO; -CHOL100043 PO; +CHOL10008 PO; +Cefotetan 2,000 mg/100 mL D5W IV ONE; +Cefotetan Inj 2,000 MG in IV Premix 1 EACH IV SCH; +Dexamethasone 4 mg/mL Inj IVPUSH PRN; +Dexamethasone 4 mg/mL Inj ONE; +EPHEDrine Sulfate 50 mg/mL Inj IVPUSH PRN; +GARL10002 PO; +IBUP-1827 PO; -Ibuprofen PO; +Ketamine 10 mg/mL 20 mL Inj ONE; +Lactated Ringer's 1,000 ML IV ONE; +Lactated Ringer's 1,000 ML IV SCH; +Lactated Ringer's 500 ML IV PRN; +METO-386 PO; -METO25TA99 PO; +MULT1CAP33 PO; +MetoCLOpramide 5 mg/mL 2 mL Inj IVPUSH PRN; +OMEP20CA11 PO; +OXYC-530 PO; +Ondansetron 2 mg/mL 2 mL Inj IVPUSH PRN; +Ondansetron 2 mg/mL 2 mL Inj ONE; -PANT20TA2 PO; +POLY17PO6 PO; -PYR50 PO; +Phenylephrine 10,000 mCg/mL Inj IVPUSH PRN; +Propofol 10,000 mCg/mL 20 mL Inj ONE; +fentaNYL-PF 50 mCg/mL 2 mL Inj IVPUSH PRN; +fentaNYL-PF 50 mCg/mL 2 mL Inj ONE; +vitamin b 12 PO
--- NOTE | 2017-03-07 07:54 | PCM.HPANE ---
Patient Data Surgeon Admitting Provider: Attending Provider:Aníbal Murcia MD Primary Care Physician:Mellisa Dhillon Other Provider:Sarabjit Adamson Anesthesia Reason for Visit Intestinal Stoma Prolapse Ht/WT & BMI Height (Feet): 5 Height (Inches): 3.5 Weight (Kilograms): 54 Body Mass Index 20.00 Allergies Coded Allergies: magnesium sulfate (Verified Allergy, Severe, VOMITING, 03/01/17) potassium (Verified Allergy, Severe, VOMITING, 03/01/17) sodium sulfate (Verified Allergy, Unknown, unknown, 03/01/17) Past Anesthesia History Anesthesia History: Denies:: Abnormal Airway, Anesthesia Reactions, Difficult Intubation, Fam Anesthesia Reaction, Fam Malignant Hypertherm, Malignant Hyperthermia Diabetes History Hx Diabetes?: No MRSA MRSA: No Medications Blood Thinner: Aspirin Last Dose Blood Thinner: Mar 06, 2017 Hypertension Medication: Yes (Metoprolol) Home Meds Incl Beta Bob: Yes Date Beta Bob Taken: Mar 06, 2017 Time Beta Bob Taken: 18:00 Reported Medications Garlic 1,000 Mg Capsule1,000 Mg PO DAILY 03/01/17 Multivitamin (Multivitamins)1 Each Capsule1 Each PO 03/01/17 [vitamin b 12] No Conflict Check1,000 Mg PO DAILY 03/01/17 Ca Cmb 1/Vit D3/B-6/FA/B12/Av (Vitamin D3-Aloe 1,000 Unit Tab)1 Each Tablet1 Each PO DAILY 03/01/17 Cholecalciferol (Vitamin D3) (Vitamin D3)1,000 Unit Tab.chew1,000 Unit PO 03/01/17 Omeprazole 20 Mg Capsule.dr20 Mg PO DAILY Ref 0 03/01/17 Metoprolol Succinate ER 25 Mg Tab.er.24h25 Mg PO DAILY Ref 0 03/01/17 Levothyroxine (Levoxyl)112 Mcg [id number] Mcg PO DAILY Ref 0 03/01/17 Aspirin 81 Mg Cbwaud10 Mg PO DAILY Ref 0 03/01/17 Discontinued Reported Medications Acetaminophen 325 Mg Smcnyh273 Mg PO Q4H PRN For Pain Ref 0 10/27/16 Ascorbic Acid (Vitamin C)250 Mg Tab.chew1,000 Mg PO QAM 30 Days Ref 0 10/27/16 Pyridoxine (Vitamin B-6)50 Mg Sxpoon234 Mg PO QAM 10/02/15 Aspirin 81 Mg Fwjobl10 Mg PO QAM Ref 0 10/02/15 Cholecalciferol (Vitamin D3) (Vitamin D)1,000 Unit Tablet2,000 Unit PO QAM Ref 0 09/23/15 Metoprolol Succinate ER 25 Mg Tab.er.24h25 Mg PO QAM 30 Days Ref 0 08/21/14 Levothyroxine (Levoxyl)112 Mcg Pvqrpr686 Mcg PO QAM 30 Days Ref 0 08/21/14 Discontinued Scripts [Ibuprofen] (Motrin)200 MG TABLET No Conflict Hlstj237 Mg PO QID PRN For Pain # 30 TABLET Prov:Aníbal Murcia MD 12/26/[address] 20 Mg Tablet.dr20 Mg PO BID #60 TAB Prov:Mel Prater DO 09/14/16 History History of ENT Problems?: Yes HEENT History: Positive for:: Cataracts (2014 surgery) Denies:: Abnormal Airway Difficult Intubation Dysphagia Hearing Problem Sinus Problem Denture Type: None Teeth Condition: Within Normal Limits Hx of Heart Problems?: Yes Cardiovascular History: Positive for:: Abdominal Aortic Aneurism (ASCENDING AORTA MILDLY ENLARGED) Cardiac Surgery (HEART CATH 02/2012 (NEG)) Chest Pain (2011 "stress related") Congestive Heart Failure (CARDIOMYOPATHY) Heart Murmur (HARSH GR II/ JIMY @ [facility] ECHO 08/2016 EF 60-65%) Hypertension Thrombophlebitis (DVT LEGS AFTER DELIVERY 1973) Valvular Heart Disease (MILD-MOD AORTIC REGURG ) Denies:: AICD Atrial Fibrillation Edema Irregular Heartbeat Pacemaker Hx of Respiratory Problem?: No Respiratory History: Denies:: Asthma COPD Chest Surgery Cough Dyspnea Emphysema Hemoptysis Pneumonia Tuberculosis Use of C-PAP Machine Use of Inhalers / NEBS Hx Neurologic Problems?: Yes Neurological History: Positive for:: Dizziness (vertigo 2015 ) Denies:: Alzheimer's Disease CVA Dementia Headaches Parkinson's Disease Seizures TIA Hx of GI Problems?: Yes Hx of Problems?: Yes Genitourinary History: Denies:: HX of Hemodialysis Kidney Stones Urinary Tract Infection HX of Peritoneal Dialysis: No Female Hx: Denies:: Currently (S/P BTL,D&C/MYOMECTOMY) Endometriosis Pelvic Inflammatory Problems with Breasts? Skin History: Denies:: History Skin Disorders? Pressure Ulcers Hx Musculoskeletal Problems?: No Musculoskeletal History: Denies:: Back Injury Degenerative Joint Fibromyalgia Joint Replacement Musculoskeletal Trauma Myasthenia Gravis Osteoarthritis Rheumatoid Arthritis Systemic Lupus Hx of Psycho/Social Problems?: No Psycho Social History: Denies:: Anxiety Bipolar Disorder Hx Depression Suicide Attempt Hx Surgeries?: Yes (BOWEL RESECTION/COLOSTOMY,HEART CATH,APPY,HYST,BTL,D&C/ MYOMECTOMY,CATARACTS) Hx Any Other Health Problems?: Yes Other History: Positive for:: Cancer (UTERINE/ENDOMETRIAL) Hospitalization (07/2016) Thyroid Disease (S/P THYROIDECTOMY) Denies:: Endocrine Disease History Blood Transfusions: Positive for:: Accept Blood Products? Denies:: Blood Transfuse Reaction Blood Transfusions Hx Diabetes: No Hx Alcohol Use: NoHx Substance Use: No Smoking Status: Never Smoker Have You Smoked inLast 12 mo: No Stop/Bang Treated for Sleep Apnea?: No Do You Have a CPAP Machine?: No S-Snoring: Do You Snore Loudly: No T-Tired: feel tired, fatigued: No O-Obsered: Observed not breath: No P-Blood Pressure: treated: Yes B- Body Mass Index > 35 kg/m2: No A- Age over 50: Yes N- Neck Large Circumference: No G- Gender Male: No HAYDE Total Score: 2 HAYDE Risk Assessment: Low Risk, <3 Yes Risk Assessment Category Category 1A: Patient has history of documented sleep apnea, and HAS NOT received any narcotic, sedative or anesthesia administration during this stay. Category 1B: Patient has history of documented sleep apnea, and HAS received any narcotic , sedative or anesthesia administration during this stay Category 2: Patient has SUSPECTED Obstructive Sleep Apnea, and HAS received any narcotic , sedative or anesthesia administration during this stay. Category 3: Patient has SUSPECTED Obstructive Sleep Apnea and HAS NOT received narcotic, sedative or anesthesia administration during this stay. Category 4: Outpatient in Procedural Areas with known sleep apnea or who screen positive for High Risk via the STOP/BANG questionnaire. Exam Exam General Appearance: Alert, Oriented X3, Cooperative, No Acute Distress HEENT/AIRWAY: MP 2 Lungs: Clear to Auscultation, Normal Air Movement Heart: Exam Unremarkable, Regular Rate/Rhythm, No Murmurs/Rubs/Gallops Plan Impression Patient chart reviewed, patient interviewed and anesthestic plan with risks, benefits, and alternatives discussed, and informed consent obtained. NPO per Anesth. Guidelines: Yes ASA Physical Status: ASA3 Severe Disease Anesthetic Plan: GA Bene/Risks/Altern/Consents: Yes HP Complete Prior to Induction: Yes Coy Molina MD Mar 07, 2017 07:54
[2017-03-07] MEDS: Lactated Ringer's 1,000 ML IV SCH ×2 (13:00→15:36)
--- NOTE | 2017-03-07 14:23 | PCM.DISURG ---
Surgical Discharge Instruction Date of Service Mar 07, 2017 Dates of Hospitalization Date of Hospital Admission Providers Admitting Physician: Primary Care Physician: Mellisa Dhillon Attending Physician: Aníbal Murcia MD Diet Discharge Diet: No restrictions Activity Discharge Activity-General: No lifting >15 pounds for 2 weeks Dressing and Incisional Care Dressing Care: Other (May change stoma appliance as needed. Increased swelling and drainage are normal from the wound edges.) Hygiene: May shower Follow Up Plan Follow Up Plan Follow up in General Surgery clinic in 2-3 weeks. Follow-up Provider (F9): Aníbal Murcia MD Follow-up appointment: Weeks (2-3) Tova Davis MD Mar 07, 2017 14:23
--- NOTE | 2017-03-07 14:25 | PCM.SURGPO ---
Immediate Operative Note Date of Surgery: Mar 07, 2017 Pre Operative Diagnosis Stoma prolapse Post Operative Diagnosis Stoma prolapse Procedure Stoma revision Surgeon and Quality Control Head Surgeon: Aníbal Murcia MD Assistants: Tova Davis MD and Walker Salvador DO Findings Redundant colon, resected 18cm with improved tension and revised stoma. 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 Palpated nodules in the mesentery and peritoneum, sent to pathology, likely known cancer deposits. Complications There were no periprocedural complications identified. Surgical Specimen Removed: Yes Specimen sent to Pathology: Yes Anesthetic Administered: GA Grafts, Implants: None Output, Estimated Blood Loss: 50 Blood Admin during surgery: No Tova Davis MD Mar 07, 2017 14:25
--- NOTE | 2017-03-07 15:00 | OP ---
[address] [address] OPERATIVE REPORT PATIENT: ENRIQUETA MORROW : 1955 MR#: [id number] ADMIT: 03/07/2017 JOB ID: [id number] DATE OF SURGERY: 03/07/2017 PREOPERATIVE DIAGNOSIS(ES): Recurrent prolapse of transverse colostomy. POSTOPERATIVE DIAGNOSIS(ES): Recurrent prolapse of transverse colostomy. PROCEDURE PERFORMED: Revision of end transverse colostomy by resection of transverse colon and excisional biopsy of peritoneal nodule. SURGEON: Aníbal Murcia, ASSISTANTS: Tova Davis MD and Walker Salvador D.O. COMPLICATIONS: None. CONDITION OF THE PATIENT: Stable. 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 Attempted placement of a palliative stent by Dr. Juarez was not successful and Dr. Hardik Zambrano performed a laparoscopy with loop transverse colostomy on November 02, 2016. She did relatively well until December 16, 2016 when [facility] prolapsed stoma. I met her in the emergency department on that day and reduced it with sugar and manipulation. I then took her to the operating room and performed a resection of her loop transverse colostomy with an end transverse colostomy and mucous fistula on December 23, 2016. She did well for a month back on her chemotherapy with paclitaxel but then presented to the emergency department with prolapse of the end colostomy and she has been struggling with prolapse ever since. After discussing the risks, benefits, and alternatives, she was brought to the operating room for another stoma revision. PROCEDURE DETAILS: She was placed in supine position, underwent smooth induction of general anesthesia. The stoma appliance was removed and we packed the colostomy with a 0.5 inch Betadine-soaked packing gauze and prepped the abdomen in the usual sterile fashion. Surgical time-out was undertaken using safety checklist and all were in agreement. We began by placing traction sutures, 3-0 silk, circumferentially around the end colostomy to be able to separate the stoma from the skin and the mucous fistula laterally. After these traction sutures were placed, we made a circumferential incision in the skin with needle-tip electrocautery and divided the skin and subcutaneous tissue and took this dissection down to the fascia. I then the colon completely from the fascia circumferentially and continued to mobilize the floppy transverse colon proximally. I divided the mesocolon with clamps and ties, and after making sure I have mobilized enough colon to take out all the residual laxity in her transverse colon, which was close to 20 cm of her colon, I placed 3-0 silk sutures anchoring the serosa of the colon to the anterior abdominal wall fascia. At this point, I noticed some nodularity in her omentum which I excised and sent it off for pathology to evaluate the current status of her carcinomatosis. After that, I amputated the bowel and matured the new stoma with four Brooking sutures with 3-0 Vicryl in cardinal directions and then completed maturing the stoma with 3-0 Vicryl in between to oppose the mucosa to the skin. We then placed an appliance. The patient was recovered from anesthesia and was taken to the recovery room in stable condition. RAYMUNDO
[2017-03-07] MEDS: HYDROmorphone 1 mg/mL Inj IVPUSH PRN ×2 (15:01→15:04)
--- NOTE | 2017-03-08 08:01 | PCM.ANEP1 ---
Post Anesthesia PACU Phase 1 Assessment Anesthetic Administered: GA Level of Alertness: Awake, talking ESTRADA's with Equal Strength: Yes Pain: No Nausea or Vomiting: No CV Function & Hydration Stable: Yes Airway Device: Oralpharangeal Airway Oxygen Delivery: Simple Mask Lungs: Clear to Auscultation, Normal Air Movement Dermatome Level: Full Sensation PACU Phase 2 Assessment Complications: No Follow up Care: No Patient Instructions Provided: N/A Coy Molina MD Mar 08, 2017 08:01
--- NOTE | 2017-03-15 17:40 | PATH ---
SURGICAL PATHOLOGY Attending Physician:Aníbal Murcia MD CASE STATUS: Signed Out PATIENT NAME: ENRIQUETA MORROW PID: [id number] : 1955 DATE COLLECTED:03/07/2017 00:00 SPECIMEN: 1: Peritoneum, Biopsy or Resection 2: Colon, Segment Resection, Non-Tumor CLINICAL HISTORY: HISTORY UTERINE CANCER 1). PERITENEAL NODULE 2). PROLAPSING TRANSVERSE COLON FINAL DIAGNOSIS: 1. Peritoneal Nodule, Biopsy: Positive for carcinoma with serous and papillary features; see comment. 2. Transverse Colon, Transverse Colostomy Revision: Segment of colon with ostomy site. Negative for dysplasia or malignancy. Two benign lymph nodes. ICD10: Z85.4 NOTE: The peritoneal nodule is positive for adenocarcinoma with papillary and serous features. There are no high-grade nuclear features, or sarcomatous features. 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 To further classify the carcinoma in the current case, a panel of immunohistochemistry is performed. The carcinoma is positive for keratin 7, PAX8, TTF-1, Napsin, p53 (variable), and p16 (variable) protein expression. The carcinoma is negative for keratin 20, WT1, thyroglobulin and estrogen receptor protein expression. 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 However, recurrent/metastatic carcinoma from her previous endometrial endometrioid adenocarcinoma cannot be entirely excluded. As part of routine lead quality technician, my colleague Priscilla Hilario has reviewed the current case and agrees with the interpretation above. The findings in this case were discussed with Dr. Reji Buchanan by Dr. Blayne Patino on 03/15/2017 at 10 a.m. GROSS DESCRIPTION: The specimens are received in formalin, labeled with the patient's name, and sublabeled as the following: (1) peritoneal nodule; (2) prolapsing transverse colon. (1) The specimen consists of multiple pieces of de dios white loosening cement was loosened membranous and fatty tissue (7.8 x 6.5 x 1.3 cm in aggregate). Multiple de dios-white solid firm foxa-tnvg-dvuubdelmdqlt nodules (0.5 x 0.5 x 0.2 cm-2.3 x 1.5 x 1.0 cm) are identified. Section code: (1A) multiple intact nodules; (1B) one nodule, bisected; (1C) one nodule, still he sectioned. (2) The specimen consists of an opened unoriented segment of colon (length-15.3 cm, resection margin #1 and #2 diameters-3.5 cm) with attached adipose tissue (up to 3.2 cm in depth). The mucosa is rahman smooth and shiny with normal folds. No nodules, masses or lesions are identified. Multiple possible lymph nodes (0.1 cm) are identified. Ink code: black-resection margin. Section code: (2A) resection margin #1, longitudinally sectioned, accounts receivable representative; (2B) resection margin #2, longitudinally sectioned, accounts receivable representative; (2C-2G) colon segment, serially sectioned and submitted from resection margin #1 to #2, accounts receivable representative; (2H) multiple intact lymph nodes. 03/08/17 JM MICRO DESCRIPTION: 1. Sections are of fibrotic adipose tissue infiltrated by an adenocarcinoma with papillary and serous features. Psammoma bodies within stroma as well as associated with the carcinoma cells are readily identified. To further classify the lesion, a panel of immunohistochemistry was performed, each with an appropriately positive control: CK7: Positive. CK20: Negative. PAX8: Positive. WT1: Negative. TTF1: Positive. Napsin: Positive. Thyroglobulin: Negative. p53: Variably positive. p16: Variably positive. Estrogen receptor: Negative. Please see final diagnosis comment for interpretation. * This test was developed and its performance characteristics determined by [facility]. It has not been cleared or approved by the U.S. Food and Drug Administration. The FDA has determined that such clearance or approval is not necessary. This test is used for clinical purposes. It should not be regarded as investigational or for research. ICD-9 CODES: CPT CODES: 1: 17556, 90189, 74690, 48731, 60143, 84653, 66321, 05349, 86259, 64285, 19855 2: 11159 Electronically Signed Out Blayne Patino MD, Ph.D. [facility] [address], [place] [address] Technical component performed at [facility], [address], [place], [address]
== END | disposition home or self-care (01) ==
LOC: SAS 10:10
PROVIDERS: ATTEND Student in an Organized Health Care Education/Training Program
DX: K94.19 Other complications of enterostomy (principal); C48.1 Malignant neoplasm of specified parts of peritoneum; C55 Malignant neoplasm of uterus, part unspecified; I10 Essential (primary) hypertension; I42.9 Cardiomyopathy, unspecified; E03.9 Hypothyroidism, unspecified; Z90.710 Acquired absence of both cervix and uterus; N30.91 Cystitis, unspecified with hematuria; Z79.82 Long term (current) use of aspirin; I71.4 Abdominal aortic aneurysm, without rupture
CPT/HCPCS: 44340; 49999; J0461; J1100; J1170; J2250; J2405; J2704; J3010; J7120; S0074